=== PATIENT | male | born 1970 | race Caucasian/White ===

== ENCOUNTER 2023-03-07 10:30 | Outpatient (CLI) | payer OTHER, SELFPAY ==
[2023-03-07] MEDS: SODIUM CHLORIDE 0.9% IV 250 ML 10 ML IVPB (11:00)
[2023-03-07] MEDS: diphenhydrAMINE HCl INJ 50 MG/ML VIAL 25 MG IV PUSH (11:00)
[2023-03-07 11:04] VITALS: BMI 23.2
[2023-03-07] MEDS: FAMOTIDINE 20 MG/ISO 50 ML 20 MG/50 ML BAG 150 MG IVPB (11:06)
[2023-03-07 11:19] VITALS: BP 147/68; PULSE 88; RESP 4; TEMP 36.6; O2SAT 98
[2023-03-07] MEDS: SODIUM CHLORIDE 0.9% IVPB (11:50)
[2023-03-07] MEDS: PACLITAXEL IVPB (11:50)
[2023-03-07] MEDS: HEPARIN SODIUM LOCK FLUSH 500 UNITS/5 ML SYRINGE IV PUSH (15:04)
[2023-03-07 15:11] VITALS: BP 132/70; PULSE 88; RESP 14; TEMP 36.5; O2SAT 97
--- NOTE | 2023-03-07 15:12 | PC.NURSE ---
Patient here for Cycle 1 of Carbo/Taxol chemotherapy. Labs were done up at [facility] 03/03/[address] Aguero. Education given verbally and written to patient and . Informed them education will be ongoing each time here. IV premeds and chemo administered see MAR. Tolerated well. Will be back 02/11/2023 at 0900 for cycle 2. Safe exit of hospital with .
== END 2023-03-07 10:31 | disposition home or self-care (01) ==
LOC: CHSTREATRM 10:41
PROVIDERS: PCP Family Medicine; Visit Provider Internal Medicine Hematology
DX: Z51.11 Encounter for antineoplastic chemotherapy (principal); C34.11 Malignant neoplasm of upper lobe, right bronchus or lung
CPT/HCPCS: 96367; 96375; 96413; 96415; 96417; J1100; J1200; J2405; J7050; J9045; J9267

== ENCOUNTER 2023-03-14 09:14 | Outpatient (CLI) | payer OTHER, SELFPAY ==
[2023-03-14 09:40] VITALS: BP 125/81; PULSE 68; RESP 14; TEMP 36.5; O2SAT 98; BMI 23.6
[2023-03-14 09:50] LABS: Basophils Absolute Auto 0.02 K/mm3 (0.00-0.10); Basophils Percent Auto 0.2 % (0.0-1.0); Eosinophils Absolute Auto 0.02 K/mm3 (0.02-0.50); Eosinophils Percent Auto 0.2 % (1.0-6.0); Hematocrit 44.1 % (40.0-54.0); Immature Granulocyte Absolute 0.15 K/mm3 (0.00-0.00); Immature Granulocyte Percent A 1.3 % (0.0-0.0); Lymphocytes Absolute Auto 0.78 K/mm3 (1.10-4.50); Lymphocytes Percent Auto 6.5 % (18.0-42.0); Mean Corpuscular Hemoglobin 31.8 pg (27.0-31.0); Mean Corpuscular Volume 93.6 fL (78.0-102.0); Mean Platelet Volume 10.3 fl (8.7-11.0); Monocytes Absolute Auto 0.31 K/mm3 (0.10-0.90); Monocytes Percent Auto 2.6 % (2.0-11.0); Neutrophils Absolute Auto 10.7 K/mm3 (1.7-7.2); Neutrophils Percent Auto 89.2 % (50.0-70.0); Platelet Count Result 373 K/mm3 (150-420); Red Blood Count 4.71 M/mm3 (4.70-6.10); Red Cell Distribution Width 12.3 % (11.6-14.4)
[2023-03-14] MEDS: SODIUM CHLORIDE 0.9% IV 250 ML 10 ML IVPB (10:00)
[2023-03-14] MEDS: diphenhydrAMINE HCl INJ 50 MG/ML VIAL 25 MG IV PUSH (10:12)
[2023-03-14] MEDS: FAMOTIDINE 20 MG/ISO 50 ML 20 MG/50 ML BAG 100 MG IVPB (10:15)
[2023-03-14 10:18] LABS: Alanine Aminotransferase 49 U/L (16-63); Albumin Level 4.3 g/dL (3.4-5.0); Alkaline Phosphatase 66 U/L (46-116); Anion Gap 8 mmol/L (8-16); Aspartate Amino Transferase 23 U/L (15-37); Bilirubin,Total 0.6 mg/dL (0.00-1.00); Blood Urea Nitrogen 14 mg/dL (7-18); Calcium 9.1 mg/dL (8.5-10.1); Carbon Dioxide 27 mmol/L (21-32); Chloride 100 mmol/L (98-108); Estimated CRCL calculation 83 ml/min; Estimated Glomerular Filt Rate > 60; Glucose 129 mg/dL (70-99); Osmolality Calculated 282 mOsm/kg (285-295); Potassium 4.9 mmol/L (3.5-5.1); Sodium 135 mmol/L (136-145)
[2023-03-14 13:00] VITALS: BP 122/67; PULSE 68; RESP 14; TEMP 36.6; O2SAT 98
[2023-03-14] MEDS: HEPARIN SODIUM LOCK FLUSH 500 UNITS/5 ML SYRINGE IV PUSH (13:12)
--- NOTE | 2023-03-14 13:25 | PC.NURSE ---
Patient here for Cycle 2 chemo regimen. Talk with patients about side effects/chemo/cancer-Education etc. All concerns answered. Labs drawn reviewed and ok'd for chemo today. IV Chemo regimen administered. SEE MAR. Tolerated well. Will return 03/21/23 after radiation. Safe exit of hospital with /ambulatory.
== END 2023-03-14 09:15 | disposition home or self-care (01) ==
LOC: CHSTREATRM 09:17
PROVIDERS: PCP Family Medicine; Visit Provider Internal Medicine Hematology
DX: Z51.11 Encounter for antineoplastic chemotherapy (principal); C34.11 Malignant neoplasm of upper lobe, right bronchus or lung
CPT/HCPCS: 36415; 80053; 85025; 96367; 96375; 96413; 96417; J1100; J1200; J2405; J7050; J9045; J9267

== ENCOUNTER 2023-03-21 10:35 | Outpatient (CLI) | payer OTHER, SELFPAY ==
[2023-03-21 10:45] VITALS: BP 150/90; PULSE 78; RESP 14; TEMP 36.7; O2SAT 97; BMI 23.2
[2023-03-21] MEDS: SODIUM CHLORIDE 0.9% IV 250 ML 10 ML IVPB (10:45)
[2023-03-21] MEDS: diphenhydrAMINE HCl INJ 50 MG/ML VIAL 25 MG IV PUSH (10:50)
[2023-03-21] MEDS: FAMOTIDINE 20 MG/ISO 50 ML 20 MG/50 ML BAG 150 MG IVPB (10:55)
[2023-03-21] MEDS: ONDANSETRON INJ 16 MG, dexAMETHasone SOD 4 MG/ML INJ 12 MG in SODIUM CHLORIDE 0.9% IV 1... 300 MG IVPB (11:15)
[2023-03-21] MEDS: SODIUM CHLORIDE 0.9% IVPB (11:48)
[2023-03-21] MEDS: PACLITAXEL IVPB (11:48)
[2023-03-21 13:34] VITALS: BP 139/70; PULSE 68; RESP 14; TEMP 36.4; O2SAT 98
[2023-03-21] MEDS: HEPARIN SODIUM LOCK FLUSH 500 UNITS/5 ML SYRINGE IV PUSH (13:34)
--- NOTE | 2023-03-21 13:38 | PC.NURSE ---
Patient coming from [facility] in [place]. Here to get cycle 3 of 6 chemo-taxol/carbo regimen. Labs were done this a.m. at [facility] -faxed here and reviewed and ok'd. No concerns today. Reports feels a little tired, but no n/v/pain. Slight rash spots noted on face. Patient reports doesn't itch or bother him or has increased. Chemo regiment administered. SEE MAR. Tolerated well. Will return 03/28/23 after radiation for cycle 4.
== END 2023-03-21 13:42 | disposition home or self-care (01) ==
LOC: CHSTREATRM 10:37
PROVIDERS: PCP Family Medicine; Visit Provider Internal Medicine Hematology
DX: Z51.11 Encounter for antineoplastic chemotherapy (principal); C34.11 Malignant neoplasm of upper lobe, right bronchus or lung
CPT/HCPCS: 96367; 96375; 96413; 96417; J1100; J1200; J2405; J7050; J9045; J9267

== ENCOUNTER 2023-03-28 10:21 | Outpatient (CLI) | payer OTHER, SELFPAY ==
[2023-03-28] MEDS: SODIUM CHLORIDE 0.9% IV 250 ML 10 ML IVPB (10:30)
[2023-03-28 10:37] VITALS: BMI 23.1
[2023-03-28] MEDS: diphenhydrAMINE HCl INJ 50 MG/ML VIAL 25 MG IV PUSH (10:40)
[2023-03-28 10:44] VITALS: BP 121/73; PULSE 68; RESP 14; TEMP 36.2; O2SAT 98
[2023-03-28] MEDS: FAMOTIDINE 20 MG/ISO 50 ML 20 MG/50 ML BAG 150 MG IVPB (10:45)
[2023-03-28] MEDS: ONDANSETRON INJ 16 MG, dexAMETHasone SOD 4 MG/ML INJ 12 MG in SODIUM CHLORIDE 0.9% IV 1... 300 MG IVPB (11:00)
[2023-03-28] MEDS: SODIUM CHLORIDE 0.9% IVPB (11:45)
[2023-03-28] MEDS: PACLITAXEL IVPB (11:45)
[2023-03-28] MEDS: HEPARIN SODIUM LOCK FLUSH 500 UNITS/5 ML SYRINGE IV PUSH (13:25)
[2023-03-28 13:51] VITALS: BP 121/69; PULSE 72; RESP 14; TEMP 36.4; O2SAT 97
--- NOTE | 2023-03-28 13:51 | PC.NURSE ---
Patient here for cycle 4 chemo regimen. Labs reviewed and ok'd. No concerns voiced. On going education of chemo/cancer continues with each session. Chemo regimen administered. SEE MAR. Tolerated well. Will return 04/06/23 after radiation around 1000. Safe exit of hospital with /ambulatory.
== END 2023-03-28 13:57 | disposition home or self-care (01) ==
PROVIDERS: PCP Family Medicine; Visit Provider Internal Medicine Hematology
DX: Z51.11 Encounter for antineoplastic chemotherapy (principal); C34.11 Malignant neoplasm of upper lobe, right bronchus or lung
CPT/HCPCS: 96367; 96375; 96413; 96417; J1100; J1200; J2405; J7050; J9045; J9267

== ENCOUNTER 2023-04-04 11:02 | Outpatient (CLI) | payer OTHER, SELFPAY ==
[2023-04-04 11:05] VITALS: BMI 23.2
[2023-04-04] MEDS: diphenhydrAMINE HCl INJ 50 MG/ML VIAL 25 MG IV PUSH (11:05)
[2023-04-04] MEDS: SODIUM CHLORIDE 0.9% IV 250 ML 10 ML IVPB (11:10)
[2023-04-04] MEDS: FAMOTIDINE 20 MG/ISO 50 ML 20 MG/50 ML BAG 150 MG IVPB (11:10)
[2023-04-04 11:18] VITALS: BP 123/74; PULSE 76; RESP 14; TEMP 36.6; O2SAT 97
[2023-04-04] MEDS: ONDANSETRON INJ 16 MG, dexAMETHasone SOD 4 MG/ML INJ 12 MG in SODIUM CHLORIDE 0.9% IV 1... 300 MG IVPB (11:30)
[2023-04-04] MEDS: SODIUM CHLORIDE 0.9% IVPB (11:55)
[2023-04-04] MEDS: PACLITAXEL IVPB (11:55)
[2023-04-04] MEDS: HEPARIN SODIUM LOCK FLUSH 500 UNITS/5 ML SYRINGE IV PUSH (13:35)
[2023-04-04 13:49] VITALS: BP 119/73; PULSE 72; RESP 14; TEMP 36.4; O2SAT 97
--- NOTE | 2023-04-04 13:50 | PC.NURSE ---
Patient here for Chemo cycle 5. Lab results reviewed today and ok'd. Just came from radiation tx. On going education of cancer /chemo continue. Chemo regimen administered. SEE MAR. Tolerated well. Will return 04/11/23 around 1030 after radiation tx. Safe exit of hospital with /ambulatory.
== END 2023-04-04 13:53 | disposition home or self-care (01) ==
LOC: CHSTREATRM 11:03
PROVIDERS: PCP Family Medicine; Visit Provider Internal Medicine Hematology
DX: Z51.11 Encounter for antineoplastic chemotherapy (principal); C34.11 Malignant neoplasm of upper lobe, right bronchus or lung
CPT/HCPCS: 96367; 96375; 96413; 96417; J1100; J1200; J2405; J7050; J9045; J9267

== ENCOUNTER 2023-04-11 10:56 | Outpatient (CLI) | payer OTHER, SELFPAY ==
[2023-04-11 11:00] VITALS: BP 135/72; PULSE 80; RESP 14; TEMP 36.6; O2SAT 97
[2023-04-11] MEDS: SODIUM CHLORIDE 0.9% IV 250 ML 10 ML IVPB (11:05)
[2023-04-11] MEDS: diphenhydrAMINE HCl INJ 50 MG/ML VIAL 25 MG IV PUSH (11:10)
[2023-04-11] MEDS: FAMOTIDINE 20 MG/ISO 50 ML 20 MG/50 ML BAG 150 MG IVPB (11:12)
[2023-04-11 11:15] VITALS: BMI 24.5
[2023-04-11] MEDS: ONDANSETRON INJ 16 MG, dexAMETHasone SOD 4 MG/ML INJ 12 MG in SODIUM CHLORIDE 0.9% IV 1... 300 MG IVPB (11:32)
[2023-04-11] MEDS: PACLITAXEL IVPB (11:51)
[2023-04-11] MEDS: SODIUM CHLORIDE 0.9% IVPB (11:51)
[2023-04-11] MEDS: HEPARIN SODIUM LOCK FLUSH 500 UNITS/5 ML SYRINGE IV PUSH (13:36)
[2023-04-11 13:37] VITALS: BP 130/72; PULSE 78; RESP 14; TEMP 36.6; O2SAT 97
--- NOTE | 2023-04-11 13:42 | PC.NURSE ---
Patient here for cycle 6 of 6 chemo regimen. No concerns voiced. On going education given. Labs reviewed from 04/10/23 and ok'd to proceed. Chemo regimen administered. SEE MAR. Tolerated well. Will have scan on 05/08/23 and follow up with Dr. Aguero.
--- NOTE | 2023-04-11 13:44 | PC.NURSE ---
Safe exit of hospital with and ambulatory.
== END 2023-04-11 13:45 | disposition home or self-care (01) ==
LOC: CHSTREATRM 10:58
PROVIDERS: PCP Family Medicine; Visit Provider Internal Medicine Hematology
DX: Z51.11 Encounter for antineoplastic chemotherapy (principal); C34.11 Malignant neoplasm of upper lobe, right bronchus or lung
CPT/HCPCS: 96367; 96375; 96413; 96417; J1100; J1200; J2405; J7050; J9045; J9267

== ENCOUNTER 2023-05-08 08:18 | Outpatient (CLI) | payer OTHER, SELFPAY ==
--- NOTE | ~2023-05-08 | CT_ITS ---
Clinical Indication: Lung cancer CT Scan of the Chest, Abdomen, and Pelvis with Contrast: Technique: Contiguous sections were acquired throughout the chest, abdomen, and pelvis after intraven ous administration of 100 cc of Omnipaque 350. Dose reduction technique was used on this scan by uti alexeying automated exposure control and iterative reconstruction technique. The dose-length product (DL P) was 416.35 mGy-cm. Findings: There is no evidence of any significant mediastinal, hilar or axillary lymphadenopathy. The mediastin al soft tissues appear normal. There is no evidence of pleural or pericardial effusion. Moderate emphysema present. Probable right upper lobectomy change. Calcified left upper lobe granulom a present. Possible focal post radiation change at the right hilar region. The liver, spleen, pancreas, gallbladder, adrenals and kidneys are within normal limits. No evidence of aortic aneurysm. No lymphadenopathy. No bowel obstruction or bowel wall thickening. There is no evidence to suggest acute appendicitis. Urinary bladder is unremarkable. No pelvic mass seen. No ascites. There is mild chronic loss of heigh t of T5, T6, T7, T8, and T9. Impression: No definite evidence for active malignancy or metastatic disease. Probable right upper lobectomy change and possible focal post radiation change at the right hilar reg ion. Moderate emphysema. Multiple mild chronic compression deformities in the thoracic spine, as above. Reviewed, dictated and finalized at [facility]. Impression: No definite evidence for active malignancy or metastatic disease. Probable right upper lobectomy change and possible focal post radiation change at the right hilar region. Moderate emphysema. Multiple mild chronic compression deformities in the thoracic spine, as above.
== END 2023-05-08 08:19 | disposition home or self-care (01) ==
LOC: CHSIMG 08:21
PROVIDERS: PCP Family Medicine; Visit Provider Internal Medicine Hematology
DX: C34.90 Malignant neoplasm of unspecified part of unspecified bronchus or lung (principal); J43.9 Emphysema, unspecified; M43.8X4 Other specified deforming dorsopathies, thoracic region
CPT/HCPCS: 71260; 74177; Q9967

== ENCOUNTER 2023-05-10 09:45 | Outpatient (CLI) | payer OTHER, SELFPAY ==
[2023-05-10 10:02] LABS: Basophils Absolute Auto 0.04 K/mm3 (0.00-0.10); Basophils Percent Auto 0.7 % (0.0-1.0); Eosinophils Absolute Auto 0.22 K/mm3 (0.02-0.50); Hematocrit 40.1 % (40.0-54.0); Hemoglobin 13.6 g/dL (14.0-18.0); Immature Granulocyte Absolute 0.02 K/mm3 (0.00-0.00); Immature Granulocyte Percent A 0.4 % (0.0-0.0); Lymphocytes Absolute Auto 1.29 K/mm3 (1.10-4.50); Lymphocytes Percent Auto 23.2 % (18.0-42.0); Mean Corpuscular HGB Conc 33.9 g/dL (32-36); Mean Corpuscular Hemoglobin 33.8 pg (27.0-31.0); Mean Corpuscular Volume 99.8 fL (78.0-102.0); Mean Platelet Volume 9.3 fl (8.7-11.0); Monocytes Absolute Auto 0.68 K/mm3 (0.10-0.90); Monocytes Percent Auto 12.3 % (2.0-11.0); Neutrophils Percent Auto 59.4 % (50.0-70.0); Platelet Count Result 422 K/mm3 (150-420); Red Blood Count 4.02 M/mm3 (4.70-6.10); Red Cell Distribution Width 15.4 % (11.6-14.4); White Blood Count 5.6 K/mm3 (4.8-10.8)
[2023-05-10 10:26] LABS: Alanine Aminotransferase 23 U/L (16-63); Alkaline Phosphatase 65 U/L (46-116); Anion Gap 14 mmol/L (4-12); Aspartate Amino Transferase 15 U/L (15-37); Bilirubin,Total 0.5 mg/dL (0.00-1.00); Blood Urea Nitrogen 8 mg/dL (7-18); Calcium 9.2 mg/dL (8.5-10.1); Carbon Dioxide 25 mmol/L (21-32); Chloride 103 mmol/L (98-108); Estimated Glomerular Filt Rate > 60; Glucose 99 mg/dL (70-99); Osmolality Calculated 292 mOsm/kg (285-295); Potassium 4.1 mmol/L (3.5-5.1); Sodium 142 mmol/L (136-145); Total Protein 7.2 g/dL (6.4-8.2)
== END 2023-05-10 09:46 | disposition home or self-care (01) ==
LOC: CHSLAB 09:47
PROVIDERS: PCP Family Medicine; Visit Provider Internal Medicine Hematology
DX: C34.90 Malignant neoplasm of unspecified part of unspecified bronchus or lung (principal)
CPT/HCPCS: 36415; 80053; 85025

== ENCOUNTER 2023-05-11 09:27 | Outpatient (CLI) | payer OTHER, SELFPAY ==
[2023-05-11] MEDS: SODIUM CHLORIDE 0.9% IV 250 ML 10 ML IVPB (09:40)
[2023-05-11] MEDS: diphenhydrAMINE HCl INJ 50 MG/ML VIAL 25 MG IV PUSH (09:45)
[2023-05-11 09:48] VITALS: BP 135/69; PULSE 72; RESP 16; TEMP 36.5; O2SAT 97; BMI 24.0
[2023-05-11] MEDS: FAMOTIDINE 20 MG/2 ML VIAL IV PUSH (09:48)
[2023-05-11] MEDS: ONDANSETRON INJ 16 MG, dexAMETHasone SOD 4 MG/ML INJ 12 MG in SODIUM CHLORIDE 0.9% IV 1... 300 MG IVPB (09:50)
[2023-05-11] MEDS: FOSAPREPITANT DIMEGLUMINE 150 MG in SODIUM CHLORIDE 0.9% IV 250 ML 750 MG IVPB (10:11)
[2023-05-11] MEDS: HEPARIN SODIUM LOCK FLUSH 500 UNITS/5 ML SYRINGE IV PUSH (14:44)
[2023-05-11 14:45] VITALS: BP 128/69; PULSE 78; RESP 16; TEMP 36.6; O2SAT 98
--- NOTE | 2023-05-11 14:46 | PC.NURSE ---
Patient here for cycle 1 of 2 Taxol/Carbo larger doses then past six treatments. Education given. No concerns voiced. Chemo regimen administered. SEE MAR. Tolerated well. Will return 05/31/23 at 0900 for cycle 2. Safe exit of hospital with ambulatory.
== END 2023-05-11 14:55 | disposition home or self-care (01) ==
PROVIDERS: PCP Family Medicine; Visit Provider Internal Medicine Hematology
DX: Z51.11 Encounter for antineoplastic chemotherapy (principal); C34.11 Malignant neoplasm of upper lobe, right bronchus or lung
CPT/HCPCS: 96367; 96375; 96413; 96415; 96417; J1100; J1200; J1453; J2405; J7040; J7050; J9045; J9267

== ENCOUNTER 2023-05-22 10:08 | Outpatient (CLI) | payer OTHER, SELFPAY ==
[2023-05-22 10:38] LABS: Hemoglobin 10.9 g/dL (14.0-18.0); Mean Corpuscular HGB Conc 34.1 g/dL (32-36); Mean Corpuscular Hemoglobin 33.5 pg (27.0-31.0); Mean Corpuscular Volume 98.5 fL (78.0-102.0); Mean Platelet Volume 9.5 fl (8.7-11.0); Platelet Count Result 298 K/mm3 (150-420); Red Blood Count 3.25 M/mm3 (4.70-6.10); Red Cell Distribution Width 14.8 % (11.6-14.4); White Blood Count 2.6 K/mm3 (4.8-10.8)
[2023-05-22 10:53] LABS: Band Neutrophils Percent 0 % (0-6); Eosinophils Absolute Manual 0.07 K/mm3 (0.02-0.50); Eosinophils Percent Manual 3 % (1-6); Lymphocytes Absolute Manual 0.98 K/mm3 (1.1-4.5); Lymphocytes Percent Manual 38 % (18-44); Monocytes Absolute Manual 0.49 K/mm3 (0.1-0.90); Monocytes Percent Manual 19 % (3-9); Neutrophils Absolute Manual 1.04 K/mm3 (1.3-6.7); Neutrophils Percent Manual 40 % (46-73); Platelet Estimate Adequate (Adequate); Total Cells Counted 100
== END 2023-05-22 10:09 | disposition home or self-care (01) ==
LOC: CHSLAB 10:10
PROVIDERS: PCP Family Medicine; Visit Provider Internal Medicine Hematology
DX: D70.1 Agranulocytosis secondary to cancer chemotherapy (principal)
CPT/HCPCS: 36415; 85025

== ENCOUNTER 2023-05-23 10:10 | Outpatient (CLI) | payer OTHER, SELFPAY ==
[2023-05-23 10:26] VITALS: BP 136/70; PULSE 80; RESP 16; TEMP 36.6; O2SAT 97; BMI 24.0
[2023-05-23] MEDS: FILGRASTIM-SNDZ 480 MCG/0.8 ML SYRINGE SUB-Q (10:31)
--- NOTE | 2023-05-23 10:32 | PC.NURSE ---
Patient here for #1 of 3 Zarxio injection. Education given. No concerns voiced. Injection administered. SEE MAR. Tolerated well. Safe exit of hospital per self/ambulatory. Will return for #2 of 3 on 05/24/23 at 1000.
== END 2023-05-23 10:11 | disposition home or self-care (01) ==
PROVIDERS: PCP Family Medicine; Visit Provider Internal Medicine Hematology
DX: D70.1 Agranulocytosis secondary to cancer chemotherapy (principal); C34.11 Malignant neoplasm of upper lobe, right bronchus or lung
CPT/HCPCS: 96372; Q5101

== ENCOUNTER 2023-05-31 10:40 | Outpatient (CLI) | payer OTHER, SELFPAY ==
[2023-05-31 11:03] LABS: Basophils Absolute Auto 0.04 K/mm3 (0.00-0.10); Basophils Percent Auto 0.4 % (0.0-1.0); Eosinophils Absolute Auto 0.13 K/mm3 (0.02-0.50); Eosinophils Percent Auto 1.4 % (1.0-6.0); Hematocrit 37.9 % (40.0-54.0); Hemoglobin 12.8 g/dL (14.0-18.0); Immature Granulocyte Absolute 0.06 K/mm3 (0.00-0.00); Immature Granulocyte Percent A 0.6 % (0.0-0.0); Lymphocytes Absolute Auto 1.36 K/mm3 (1.10-4.50); Lymphocytes Percent Auto 14.5 % (18.0-42.0); Mean Corpuscular HGB Conc 33.8 g/dL (32-36); Mean Corpuscular Hemoglobin 33.3 pg (27.0-31.0); Mean Corpuscular Volume 98.7 fL (78.0-102.0); Mean Platelet Volume 9.5 fl (8.7-11.0); Monocytes Absolute Auto 1.03 K/mm3 (0.10-0.90); Neutrophils Absolute Auto 6.73 K/mm3 (1.70-7.20); Neutrophils Percent Auto 72.1 % (50.0-70.0); Platelet Count Result 272 K/mm3 (150-420); Red Blood Count 3.84 M/mm3 (4.70-6.10); Red Cell Distribution Width 15.3 % (11.6-14.4); White Blood Count 9.4 K/mm3 (4.8-10.8)
[2023-05-31 11:04] VITALS: BP 135/81; PULSE 92; RESP 16; TEMP 36.6; O2SAT 97; BMI 24.1
[2023-05-31] MEDS: PEMBROLIZUMAB 200 MG in SODIUM CHLORIDE 0.9% IV 100 ML IVPB (11:14)
[2023-05-31 11:18] LABS: Alanine Aminotransferase 36 U/L (16-63); Albumin Level 3.9 g/dL (3.4-5.0); Alkaline Phosphatase 62 U/L (46-116); Anion Gap 7 mmol/L (4-12); Aspartate Amino Transferase 21 U/L (15-37); Bilirubin,Total 0.5 mg/dL (0.00-1.00); Blood Urea Nitrogen 10 mg/dL (7-18); Calcium 8.8 mg/dL (8.5-10.1); Carbon Dioxide 28 mmol/L (21-32); Chloride 102 mmol/L (98-108); Estimated CRCL calculation 90 ml/min; Estimated Glomerular Filt Rate > 60; Glucose 100 mg/dL (70-99); Osmolality Calculated 283 mOsm/kg (285-295); Potassium 4.5 mmol/L (3.5-5.1); Sodium 137 mmol/L (136-145); Total Protein 7.2 g/dL (6.4-8.2)
[2023-05-31] MEDS: HEPARIN SODIUM LOCK FLUSH 500 UNITS/5 ML SYRINGE IV PUSH (11:36)
[2023-05-31 11:38] LABS: Thyroid Stimulating Hormone 1.33 uIU/mL (0.36-3.74)
[2023-05-31 11:45] VITALS: BP 134/74; PULSE 88; RESP 14; TEMP 36.3; O2SAT 96
== END 2023-05-31 12:00 | disposition home or self-care (01) ==
PROVIDERS: PCP Family Medicine; Visit Provider Internal Medicine Hematology
DX: Z51.11 Encounter for antineoplastic chemotherapy (principal); C34.11 Malignant neoplasm of upper lobe, right bronchus or lung
CPT/HCPCS: 36415; 80053; 82533; 84443; 85025; 96413; J9271

== ENCOUNTER 2023-06-22 10:30 | Outpatient (CLI) | payer OTHER, SELFPAY ==
[2023-06-22 10:35] VITALS: BP 114/63; PULSE 68; RESP 14; TEMP 36.4; O2SAT 96; BMI 23.5
[2023-06-22 10:58] LABS: Basophils Absolute Auto 0.04 K/mm3 (0.00-0.10); Basophils Percent Auto 0.6 % (0.0-1.0); Eosinophils Absolute Auto 0.26 K/mm3 (0.02-0.50); Eosinophils Percent Auto 3.7 % (1.0-6.0); Hematocrit 39.5 % (40.0-54.0); Hemoglobin 13.2 g/dL (14.0-18.0); Immature Granulocyte Absolute 0.02 K/mm3 (0.00-0.00); Immature Granulocyte Percent A 0.3 % (0.0-0.0); Lymphocytes Absolute Auto 1.09 K/mm3 (1.10-4.50); Lymphocytes Percent Auto 15.7 % (18.0-42.0); Mean Corpuscular HGB Conc 33.4 g/dL (32-36); Mean Corpuscular Hemoglobin 33.5 pg (27.0-31.0); Mean Corpuscular Volume 100.3 fL (78.0-102.0); Mean Platelet Volume 9.8 fl (8.7-11.0); Monocytes Absolute Auto 0.71 K/mm3 (0.10-0.90); Monocytes Percent Auto 10.2 % (2.0-11.0); Neutrophils Absolute Auto 4.82 K/mm3 (1.70-7.20); Neutrophils Percent Auto 69.5 % (50.0-70.0); Platelet Count Result 305 K/mm3 (150-420); Red Blood Count 3.94 M/mm3 (4.70-6.10); Red Cell Distribution Width 13.4 % (11.6-14.4); White Blood Count 6.9 K/mm3 (4.8-10.8)
[2023-06-22 11:19] LABS: Alanine Aminotransferase 25 U/L (16-63); Albumin Level 3.9 g/dL (3.4-5.0); Alkaline Phosphatase 52 U/L (46-116); Anion Gap 10 mmol/L (4-12); Aspartate Amino Transferase 22 U/L (15-37); Bilirubin,Total 0.4 mg/dL (0.00-1.00); Blood Urea Nitrogen 11 mg/dL (7-18); Calcium 8.8 mg/dL (8.5-10.1); Carbon Dioxide 27 mmol/L (21-32); Chloride 101 mmol/L (98-108); Estimated CRCL calculation 84 ml/min; Estimated Glomerular Filt Rate > 60; Free T4 Free Thyroxine 0.97 ng/dL (0.76-1.46); Glucose 96 mg/dL (70-99); Osmolality Calculated 285 mOsm/kg (285-295); Potassium 4.1 mmol/L (3.5-5.1); Sodium 138 mmol/L (136-145); Thyroid Stimulating Hormone 2.26 uIU/mL (0.36-3.74)
[2023-06-22] MEDS: PEMBROLIZUMAB 200 MG in SODIUM CHLORIDE 0.9% IV 100 ML IVPB (11:45)
[2023-06-22] MEDS: HEPARIN SODIUM LOCK FLUSH 500 UNITS/5 ML SYRINGE IV PUSH (12:28)
[2023-06-22 12:29] VITALS: BP 111/69; PULSE 68; RESP 14; TEMP 36.5; O2SAT 95
--- NOTE | 2023-06-22 12:31 | PC.NURSE ---
Patient here for Keytruda infusion. Education given. Labs drawn/reviewed/ok'd. No concerns voiced. Infusion administered. SEE MAR. Tolerated well. Safe exit of hospital with son and ambulatory.
== END 2023-06-22 12:32 | disposition home or self-care (01) ==
PROVIDERS: PCP Family Medicine; Visit Provider Internal Medicine Hematology
DX: C34.90 Malignant neoplasm of unspecified part of unspecified bronchus or lung (principal)
CPT/HCPCS: 36591; 80053; 82533; 84439; 84443; 85025; 96413; J9271

== ENCOUNTER 2023-07-13 10:07 | Outpatient (CLI) | payer OTHER, SELFPAY ==
[2023-07-13 10:29] LABS: Basophils Absolute Auto 0.05 K/mm3 (0.00-0.10); Basophils Percent Auto 0.8 % (0.0-1.0); Eosinophils Absolute Auto 0.21 K/mm3 (0.02-0.50); Eosinophils Percent Auto 3.4 % (1.0-6.0); Hematocrit 40.5 % (40.0-54.0); Hemoglobin 13.8 g/dL (14.0-18.0); Immature Granulocyte Absolute 0.02 K/mm3 (0.00-0.00); Immature Granulocyte Percent A 0.3 % (0.0-0.0); Lymphocytes Absolute Auto 1.68 K/mm3 (1.10-4.50); Lymphocytes Percent Auto 27.4 % (18.0-42.0); Mean Corpuscular HGB Conc 34.1 g/dL (32-36); Mean Corpuscular Hemoglobin 33.7 pg (27.0-31.0); Mean Corpuscular Volume 98.8 fL (78.0-102.0); Mean Platelet Volume 9.7 fl (8.7-11.0); Monocytes Absolute Auto 0.63 K/mm3 (0.10-0.90); Monocytes Percent Auto 10.3 % (2.0-11.0); Neutrophils Absolute Auto 3.55 K/mm3 (1.70-7.20); Neutrophils Percent Auto 57.8 % (50.0-70.0); Platelet Count Result 315 K/mm3 (150-420); Red Cell Distribution Width 12.3 % (11.6-14.4); White Blood Count 6.1 K/mm3 (4.8-10.8)
[2023-07-13 10:30] VITALS: BP 135/81; PULSE 56; RESP 14; TEMP 36.6; O2SAT 98; BMI 24.1
[2023-07-13 10:42] LABS: Alanine Aminotransferase 20 U/L (16-63); Albumin Level 3.8 g/dL (3.4-5.0); Alkaline Phosphatase 51 U/L (46-116); Anion Gap 9 mmol/L (4-12); Aspartate Amino Transferase 17 U/L (15-37); Bilirubin,Total 0.4 mg/dL (0.00-1.00); Blood Urea Nitrogen 10 mg/dL (7-18); Calcium 8.8 mg/dL (8.5-10.1); Carbon Dioxide 27 mmol/L (21-32); Chloride 102 mmol/L (98-108); Estimated Glomerular Filt Rate > 60; Glucose 100 mg/dL (70-99); Osmolality Calculated 285 mOsm/kg (285-295); Potassium 4.4 mmol/L (3.5-5.1); Sodium 138 mmol/L (136-145); Total Protein 7.2 g/dL (6.4-8.2)
[2023-07-13] MEDS: PEMBROLIZUMAB 200 MG in SODIUM CHLORIDE 0.9% IV 100 ML IVPB (11:00)
[2023-07-13] MEDS: HEPARIN SODIUM LOCK FLUSH 500 UNITS/5 ML SYRINGE IV PUSH (11:39)
[2023-07-13 11:44] VITALS: BP 120/73; PULSE 64; RESP 14; O2SAT 98
--- NOTE | 2023-07-13 11:46 | PC.NURSE ---
Patient here for #3 Keytruda IV infusion. Ongoing education continues on immunotherapy. All concerns voiced answered. Labs drawn/viewed/ok'd. IV Keytruda infusion administered. see MAR. Tolerated well. #4 treatment July at 1000. Safe exit of hospital per /ambulatory.
[2023-07-14 11:58] LABS: Cortisol Random 5.5 mcg/dL
== END 2023-07-13 10:08 | disposition home or self-care (01) ==
PROVIDERS: PCP Internal Medicine Hematology; Visit Provider Internal Medicine Hematology
DX: Z51.11 Encounter for antineoplastic chemotherapy (principal); C34.11 Malignant neoplasm of upper lobe, right bronchus or lung
CPT/HCPCS: 36591; 80053; 82533; 84443; 85025; 96413; J9271

== ENCOUNTER 2023-08-03 10:25 | Outpatient (CLI) | payer OTHER, SELFPAY ==
[2023-08-03 10:44] LABS: Basophils Absolute Auto 0.04 K/mm3 (0.00-0.10); Basophils Percent Auto 0.6 % (0.0-1.0); Eosinophils Absolute Auto 0.33 K/mm3 (0.02-0.50); Eosinophils Percent Auto 4.8 % (1.0-6.0); Hematocrit 39.3 % (40.0-54.0); Hemoglobin 13.6 g/dL (14.0-18.0); Immature Granulocyte Absolute 0.02 K/mm3 (0.00-0.00); Immature Granulocyte Percent A 0.3 % (0.0-0.0); Lymphocytes Absolute Auto 1.81 K/mm3 (1.10-4.50); Lymphocytes Percent Auto 26.6 % (18.0-42.0); Mean Corpuscular HGB Conc 34.6 g/dL (32-36); Mean Corpuscular Hemoglobin 33.3 pg (27.0-31.0); Mean Corpuscular Volume 96.3 fL (78.0-102.0); Mean Platelet Volume 9.6 fl (8.7-11.0); Monocytes Absolute Auto 0.63 K/mm3 (0.10-0.90); Monocytes Percent Auto 9.3 % (2.0-11.0); Neutrophils Absolute Auto 3.98 K/mm3 (1.70-7.20); Neutrophils Percent Auto 58.4 % (50.0-70.0); Platelet Count Result 304 K/mm3 (150-420); Red Blood Count 4.08 M/mm3 (4.70-6.10); Red Cell Distribution Width 12.3 % (11.6-14.4); White Blood Count 6.8 K/mm3 (4.8-10.8)
[2023-08-03 10:45] VITALS: BP 116/73; PULSE 68; RESP 14; TEMP 36.4; O2SAT 97; BMI 23.9
[2023-08-03 10:58] LABS: Alanine Aminotransferase 23 U/L (16-63); Albumin Level 3.6 g/dL (3.4-5.0); Alkaline Phosphatase 47 U/L (46-116); Anion Gap 7 mmol/L (4-12); Aspartate Amino Transferase 17 U/L (15-37); Bilirubin,Total 0.4 mg/dL (0.00-1.00); Blood Urea Nitrogen 11 mg/dL (7-18); Calcium 8.6 mg/dL (8.5-10.1); Carbon Dioxide 26 mmol/L (21-32); Chloride 103 mmol/L (98-108); Estimated Glomerular Filt Rate > 60; Glucose 114 mg/dL (70-99); Osmolality Calculated 282 mOsm/kg (285-295); Potassium 4.1 mmol/L (3.5-5.1); Sodium 136 mmol/L (136-145); Total Protein 6.8 g/dL (6.4-8.2)
[2023-08-03] MEDS: PEMBROLIZUMAB 200 MG in SODIUM CHLORIDE 0.9% IV 100 ML IVPB (11:20)
[2023-08-03] MEDS: HEPARIN SODIUM LOCK FLUSH 500 UNITS/5 ML SYRINGE IV PUSH (11:51)
[2023-08-03 12:15] VITALS: BP 121/70; PULSE 68; RESP 14; O2SAT 96
--- NOTE | 2023-08-03 12:32 | PC.NURSE ---
Patient here for every 3 21 day Keytruda infusion. Education given. No concerns voiced today. Labs drawn/reviewed/ok'd for treatment. TX administered. SEE MAR/patient care. Tolerated well. Safe discharge from hospital with .
== END 2023-08-03 10:26 | disposition home or self-care (01) ==
PROVIDERS: Visit Provider Internal Medicine Hematology
DX: Z51.11 Encounter for antineoplastic chemotherapy (principal); C34.11 Malignant neoplasm of upper lobe, right bronchus or lung
CPT/HCPCS: 36415; 36591; 80053; 85025; 96413; J9271

== ENCOUNTER 2023-08-24 08:29 | Outpatient (CLI) | payer OTHER, SELFPAY ==
[2023-08-24 08:50] VITALS: PULSE 72; RESP 14; TEMP 36.5; O2SAT 97; BMI 24.1
[2023-08-24 08:51] LABS: Basophils Absolute Auto 0.04 K/mm3 (0.00-0.10); Basophils Percent Auto 0.5 % (0.0-1.0); Eosinophils Absolute Auto 0.19 K/mm3 (0.02-0.50); Eosinophils Percent Auto 2.5 % (1.0-6.0); Immature Granulocyte Absolute 0.03 K/mm3 (0.00-0.00); Immature Granulocyte Percent A 0.4 % (0.0-0.0); Lymphocytes Absolute Auto 1.59 K/mm3 (1.10-4.50); Lymphocytes Percent Auto 20.6 % (18.0-42.0); Mean Corpuscular HGB Conc 34.9 g/dL (32-36); Mean Corpuscular Hemoglobin 32.8 pg (27.0-31.0); Mean Corpuscular Volume 93.9 fL (78.0-102.0); Mean Platelet Volume 9.7 fl (8.7-11.0); Monocytes Absolute Auto 0.64 K/mm3 (0.10-0.90); Monocytes Percent Auto 8.3 % (2.0-11.0); Neutrophils Absolute Auto 5.24 K/mm3 (1.70-7.20); Neutrophils Percent Auto 67.7 % (50.0-70.0); Platelet Count Result 299 K/mm3 (150-420); Red Blood Count 4.58 M/mm3 (4.70-6.10); Red Cell Distribution Width 12.2 % (11.6-14.4); White Blood Count 7.7 K/mm3 (4.8-10.8)
[2023-08-24 09:06] LABS: Alanine Aminotransferase 22 U/L (16-63); Albumin Level 4.3 g/dL (3.4-5.0); Alkaline Phosphatase 57 U/L (46-116); Anion Gap 11 mmol/L (4-12); Aspartate Amino Transferase 17 U/L (15-37); Bilirubin,Total 0.4 mg/dL (0.00-1.00); Blood Urea Nitrogen 12 mg/dL (7-18); Calcium 9.5 mg/dL (8.5-10.1); Carbon Dioxide 25 mmol/L (21-32); Chloride 101 mmol/L (98-108); Estimated CRCL calculation 81 ml/min; Estimated Glomerular Filt Rate > 60; Glucose 109 mg/dL (70-99); Osmolality Calculated 284 mOsm/kg (285-295); Potassium 4.2 mmol/L (3.5-5.1); Sodium 137 mmol/L (136-145); Total Protein 7.6 g/dL (6.4-8.2)
[2023-08-24] MEDS: PEMBROLIZUMAB 200 MG in SODIUM CHLORIDE 0.9% IV 100 ML IVPB (09:22)
[2023-08-24 09:28] LABS: Thyroid Stimulating Hormone 1.22 uIU/mL (0.36-3.74)
[2023-08-24 09:51] VITALS: BP 121/67; PULSE 78; RESP 14
[2023-08-24] MEDS: HEPARIN SODIUM LOCK FLUSH 500 UNITS/5 ML SYRINGE IV PUSH (09:52)
[2023-08-26 02:59] LABS: Cortisol Random 13.2 mcg/dL
== END 2023-08-24 08:30 | disposition home or self-care (01) ==
PROVIDERS: PCP Registered Nurse; Visit Provider Internal Medicine Hematology
DX: Z51.11 Encounter for antineoplastic chemotherapy (principal); C34.11 Malignant neoplasm of upper lobe, right bronchus or lung
CPT/HCPCS: 36415; 36591; 80053; 82533; 84443; 85025; 96413; J9271

== ENCOUNTER 2023-09-07 13:15 | Outpatient (CLI) | payer OTHER, SELFPAY ==
--- NOTE | ~2023-09-07 | CT_ITS ---
EXAMINATION: CT thoracic spine wo con DATE: 09/07/2023 13:34 INDICATION: Back pain. Lung cancer. TECHNIQUE: Computed tomography (CT) of the thoracic spine was performed without intravenous contrast. Automated exposure control and iterative reconstruction technique were employed. The dose-length pro duct was 513.99 mGy-cm. 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 Calcified pulmonary nodules and calcif ied left hilar lymph nodes are consistent with old granulomatous disease. There is moderate emphysema . There are changes of right upper lobectomy. There is mild chronic anterior wedging of T5-T12 verteb ral bodies. There is kyphosis of thoracic spine. There is 4 degrees levocurvature of thoracic spine. There is mildly decreased disc height at multiple levels. There is moderately decreased disc height a t T5-T6, T6-T7, T8-T9. There is multilevel mild to moderate facet joint osteoarthritis. At T2-T3, the re is severe right facet joint osteoarthritis. There is mild neural foraminal stenosis at a few level s on either side. There is mild central canal stenosis at T6-T7. IMPRESSION: 1. Moderate thoracic spondylosis. 2. Thoracic kyphosis. Reviewed, dictated and finalized at location A.
== END 2023-09-07 13:16 | disposition home or self-care (01) ==
PROVIDERS: Visit Provider Internal Medicine Hematology
DX: M54.9 Dorsalgia, unspecified (principal); M43.04 Spondylolysis, thoracic region; M40.294 Other kyphosis, thoracic region
CPT/HCPCS: 72128

== ENCOUNTER 2023-09-14 09:34 | Outpatient (CLI) | payer OTHER, SELFPAY ==
[2023-09-14 09:57] LABS: Basophils Absolute Auto 0.04 K/mm3 (0.00-0.10); Basophils Percent Auto 0.6 % (0.0-1.0); Eosinophils Absolute Auto 0.31 K/mm3 (0.02-0.50); Eosinophils Percent Auto 4.5 % (1.0-6.0); Hematocrit 41.8 % (40.0-54.0); Hemoglobin 14.5 g/dL (14.0-18.0); Immature Granulocyte Absolute 0.03 K/mm3 (0.00-0.00); Immature Granulocyte Percent A 0.4 % (0.0-0.0); Lymphocytes Absolute Auto 1.52 K/mm3 (1.10-4.50); Lymphocytes Percent Auto 22.1 % (18.0-42.0); Mean Corpuscular HGB Conc 34.7 g/dL (32-36); Mean Corpuscular Hemoglobin 32.2 pg (27.0-31.0); Mean Corpuscular Volume 92.7 fL (78.0-102.0); Mean Platelet Volume 9.8 fl (8.7-11.0); Monocytes Percent Auto 8.7 % (2.0-11.0); Neutrophils Absolute Auto 4.39 K/mm3 (1.70-7.20); Neutrophils Percent Auto 63.7 % (50.0-70.0); Platelet Count Result 305 K/mm3 (150-420); Red Blood Count 4.51 M/mm3 (4.70-6.10); Red Cell Distribution Width 12.4 % (11.6-14.4); White Blood Count 6.9 K/mm3 (4.8-10.8)
[2023-09-14 10:01] VITALS: BP 127/72; PULSE 88; RESP 14; TEMP 36.4; O2SAT 97; BMI 22.6
[2023-09-14 10:12] LABS: Alanine Aminotransferase 21 U/L (16-63); Albumin Level 3.9 g/dL (3.4-5.0); Alkaline Phosphatase 63 U/L (46-116); Anion Gap 10 mmol/L (4-12); Aspartate Amino Transferase 16 U/L (15-37); Bilirubin,Total 0.5 mg/dL (0.00-1.00); Blood Urea Nitrogen 9 mg/dL (7-18); Calcium 8.9 mg/dL (8.5-10.1); Carbon Dioxide 27 mmol/L (21-32); Chloride 102 mmol/L (98-108); Estimated CRCL calculation 88 ml/min; Estimated Glomerular Filt Rate > 60; Glucose 107 mg/dL (70-99); Osmolality Calculated 286 mOsm/kg (285-295); Potassium 4.3 mmol/L (3.5-5.1); Sodium 139 mmol/L (136-145); Total Protein 7.2 g/dL (6.4-8.2)
[2023-09-14] MEDS: PEMBROLIZUMAB 200 MG in SODIUM CHLORIDE 0.9% IV 100 ML IVPB (10:45)
[2023-09-14] MEDS: HEPARIN SODIUM LOCK FLUSH 500 UNITS/5 ML SYRINGE IV PUSH (11:24)
[2023-09-14 11:26] VITALS: BP 132/80; PULSE 72; RESP 16; O2SAT 96
--- NOTE | 2023-09-14 11:27 | PC.NURSE ---
Patient tolerated IV Keytruda infusion well. SEE MAR/patient care notes.
== END 2023-09-14 09:35 | disposition home or self-care (01) ==
PROVIDERS: PCP Internal Medicine Hematology; Visit Provider Internal Medicine Hematology
DX: Z51.11 Encounter for antineoplastic chemotherapy (principal); C34.11 Malignant neoplasm of upper lobe, right bronchus or lung
CPT/HCPCS: 36415; 80053; 85025; 96413; J9271

== ENCOUNTER 2023-09-27 09:58 | Emergency (ER) | payer OTHER, SELFPAY ==
[2023-09-27] VITALS (7 sets, daily range): BP systolic 118–183; BP diastolic 80–98; PULSE 65–81; RESP 11–20; TEMP 36.7–36.9; O2SAT 98–100
--- NOTE | ~2023-09-27 | XR_ITS ---
XR chest 1V portable Ordering provider: Junaid Steiner MD History: 53 years Male with . shortness of breath . Comparison: None. FINDINGS: MEDIASTINUM: The cardiac silhouette is not enlarged. Left central line with the tip overlying superio r vena cava. LUNGS: No infiltrates, effusions or pneumothorax. Postoperative changes in the right upper lobe area. OTHER: No free air under the diaphragm. Degenerative changes of the spine. IMPRESSION: No acute cardiopulmonary pathology. Reviewed, dictated and finalized at location A.
--- NOTE | ~2023-09-27 | CT_ITS ---
CT diagnostic chest w con Ordering provider: Junaid Steiner MD History: 53 years Male with . SOB HX R LUNG CA,KISHORE LOWER CP . Comparison: May 08, 2023 Technique: CT chest with IV contrast. Radiation reduction technique utilized. The dose-length product was 189.44 mGy Findings: VISUALIZED THORACIC INLET: Normal. MEDIASTINUM: Aorta/coronary arteries: The thoracic aorta is normal. Heart/other: The heart is not enlarged. Lymph nodes: No mediastinal or hilar adenopathy. Right paratracheal/right hilar soft tissue density with postoperative changes unchanged from previous examination LUNGS: Emphysematous changes of the lungs. Atelectatic changes in the left apical area. No pulmonary nodules or masses. No infiltrates or effusions. No pneumothorax. VISUALIZED UPPER ABDOMEN: Slightly thickening of the lower esophagus which may indicate reflux esopha gitis. Otherwise, the visualized upper abdomen is normal. MUSCULOSKELETAL: Soft tissues: The superficial soft tissues are normal. Bones: Age appropriate degenerative changes of the spine. Multilevel compression fractures from previ ous examination. IMPRESSION: No definite malignancy seen. No acute cardiopulmonary pathology. No change from previous examination. Reviewed, dictated and finalized at location A.
--- NOTE | 2023-09-27 10:22 | ED.SOB ---
HPI - SOB/Dyspnea General Chief Complaint: Shortness of Breath/Dyspnea Stated Complaint: SOB Source: patient Mode of arrival: ambulatory Limitations: no limitations History of Present Illness HPI Narrative: 53-year-old male, smoker with a history of spontaneous pneumothorax, COPD,right upper lobe lung cancer status post right upper lobectomy, mediastinal lymph node dissection status post RT/chemo and currently on immunotherapy went to his oncologist office where he was noted to have -- increasing shortness of breath. Dyspnea on exertion. This has been going on for the past few days. The patient denied any fever or chills. No chest pain. No cough or sputum production. No hemoptysis. He sent to the ED for further management. MD elicited complaint: shortness of breath and pain with inspiration Pertinent past history: COPD Onset (ago): day(s) Timing: constant Exacerbating factors: exertion and stress Relieving factors: bronchodilators Known history of: COPD Associated symptoms: denies other symptoms Related Data Home oxygen amount: none Home Medications Medication Instructions Recorded Confirmed albuterol 90 mcg/actuation aerosol 90 mcg inhalation Q4-8H PRN 03/07/23 09/27/23 inhaler Shortness Of Breath Or Wheezing fluticasone 250 mcg-salmeterol 50 1 inh inhalation Q12H 03/07/23 09/27/23 mcg/dose blistr powdr for inhalation (Advair Diskus) hydrocodone 5 mg-acetaminophen 325 1 tablet PO Q6-8H 09/27/23 09/27/23 mg tablet ipratropium 0.5 mg-albuterol 3 mg 3 ml inhalation PRN PRN SOB 09/27/23 09/27/23 (2.5 mg base)/3 mL nebulization soln lidocaine 5 % topical patch 1 patch transdermal DAILY PRN Pain 09/27/23 09/27/23 Allergies Allergy/AdvReac Type Severity Reaction Status Date / Time Penicillins Allergy Anaphylaxis Verified 09/27/23 10:04 rizatriptan Allergy Anaphylaxis Verified 09/27/23 10:04 Review of Systems Review of Systems: All systems reviewed & are unremarkable except as noted in HPI and below Constitutional: Constitutional: Reports as per HPI and Reports no additional constitutional complaints Eyes: Eyes: Reports as per HPI and Reports no additional eye complaints ENT: Reports system reviewed and no additional complaints, except as documented and Reports as per HPI Cardiovascular: Cardiovascular: Reports as per HPI and Reports no additional cardiovascular complaints Respiratory: Respiratory: Reports as per HPI, Reports no additional respiratory complaints and Reports dyspnea Gastrointestinal: Gastrointestinal: Reports as per HPI and Reports no additional gastrointestinal complaints Genitourinary: Genitourinary: Reports no additional male genitourinary complaints and Reports as per HPI Musculoskeletal: Musculoskeletal: Reports no additional musculoskeletal complaints and Reports as per HPI Integumentary/Breasts: Skin/Breast: Reports system reviewed and no additional complaints, except as docu and Reports as per HPI Neurologic: Reports system reviewed and no additional complaints, except as documented and Reports as per HPI Psychiatric: Psychiatric: Reports no additional psychiatric complaints and Reports as per HPI Endocrine: Endocrine: Reports no additional endocrine complaints and Reports as per HPI Hematologic/Lymphatic: Hematologic/Lymphatic: Reports no additional hematologic/lymphatic complaints and Reports as per HPI Allergic/Immunologic: Allergic/Immunologic: Reports no additional allergic/immunologic complaints and Reports as per HPI [facility] Past Medical History Medical History (Updated 09/27/23 @ 13:30 by Junaid Steiner MD) COPD (chronic obstructive pulmonary disease) Primary lung cancer Social History Social History Smoking status: Former smoker Exam Narrative: blood pressure 183/98. Oxygen saturation of 99% on room air with a respiratory rate of Const: General: no acute distress Orientation/consciousness: patient oriented x3 Limitations: no
--- NOTE | 2023-09-27 10:44 | ECG_ITS ---
Test Date: 2023-09-27 10:56:28 Measurements Intervals Fromberg Rate: 66 P: 78 NE: 178 QRS: 62 QRSD: 83 T: 69 QT: 352 QTc: 371 Interpretive Statements SINUS RHYTHM No previous ECG available for comparison Electronically Signed On 09-27-2023 15:49:54 CDT by Archana Toscano M.D.
[2023-09-27 11:14] LABS: Basophils Absolute Auto 0.06 K/mm3 (0.00-0.10); Basophils Percent Auto 0.8 % (0.0-1.0); Eosinophils Absolute Auto 0.39 K/mm3 (0.02-0.50); Hematocrit 41.3 % (40.0-54.0); Hemoglobin 14.5 g/dL (14.0-18.0); Immature Granulocyte Absolute 0.04 K/mm3 (0.00-0.00); Immature Granulocyte Percent A 0.5 % (0.0-0.0); Lymphocytes Absolute Auto 1.73 K/mm3 (1.10-4.50); Lymphocytes Percent Auto 22.2 % (18.0-42.0); Mean Corpuscular HGB Conc 35.1 g/dL (32-36); Mean Corpuscular Volume 94.1 fL (78.0-102.0); Mean Platelet Volume 9.8 fl (8.7-11.0); Monocytes Absolute Auto 0.71 K/mm3 (0.10-0.90); Monocytes Percent Auto 9.1 % (2.0-11.0); Neutrophils Absolute Auto 4.86 K/mm3 (1.70-7.20); Neutrophils Percent Auto 62.4 % (50.0-70.0); Platelet Count Result 326 K/mm3 (150-420); Red Blood Count 4.39 M/mm3 (4.70-6.10); Red Cell Distribution Width 12.5 % (11.6-14.4); White Blood Count 7.8 K/mm3 (4.8-10.8)
[2023-09-27 11:15] LABS: Base Excess ABG -0.9 mmol/L (0-2); HCO3 ABG 23.6 mmol/L (23-29); Oxygen Content ABG 20.2 %vol (16.0-22.0); Oxygen Saturation ABG 97.2 % (95-97); Oxyhemoglobin 96.5 % (94-100); PCO2 ABG 38.8 mmHg (35-45); PO2 ABG 95.9 mmHg (80-90)
[2023-09-27 11:17] LABS: Device ROOM AIR; Modified Allen's Test Pass; Site Drawn RIGHT RADIAL
[2023-09-27 11:32] LABS: Lactic Acid Reflex 1.4 mmol/L (0.4-2.0)
[2023-09-27 11:33] LABS: D Dimer 0.33 mg/L (0.19-0.50); INR 0.9; Partial Thromboplastin Time 28.5 Sec (23.9-30.70); Prothrombin Time 9.8 Seconds (9.50-12.1)
[2023-09-27 11:36] LABS: Alanine Aminotransferase 20 U/L (16-63); Albumin Level 3.9 g/dL (3.4-5.0); Alkaline Phosphatase 66 U/L (46-116); Anion Gap 7 mmol/L (4-12); Aspartate Amino Transferase 14 U/L (15-37); Bilirubin,Total 0.3 mg/dL (0.00-1.00); Blood Urea Nitrogen 10 mg/dL (7-18); Calcium 9.1 mg/dL (8.5-10.1); Carbon Dioxide 30 mmol/L (21-32); Chloride 101 mmol/L (98-108); Estimated CRCL calculation 83 ml/min; Estimated Glomerular Filt Rate > 60; Glucose 99 mg/dL (70-99); NT Pro B Type Natriuretic Pept 42 pg/mL (0-125); Osmolality Calculated 285 mOsm/kg (285-295); Potassium 4.2 mmol/L (3.5-5.1); Sodium 138 mmol/L (136-145); Total Protein 7.3 g/dL (6.4-8.2)
[2023-09-27 11:37] LABS: Troponin I 16.3 ng/L (0.00-60.4)
[2023-09-27] MEDS: LACTATED RINGERS 500 ML 999 ML IV CONT (12:26)
[2023-09-27] MEDS: HEPARIN SODIUM LOCK FLUSH 500 UNITS/5 ML SYRINGE IV PUSH (13:56)
== END 2023-09-27 14:04 | disposition home or self-care (01) ==
PROVIDERS: Emergency Provider Internal Medicine Critical Care Medicine; PCP Internal Medicine Hematology
DX: R06.02 Shortness of breath (principal); J44.9 Chronic obstructive pulmonary disease, unspecified; Z85.118 Personal history of other malignant neoplasm of bronchus and lung; Z79.891 Long term (current) use of opiate analgesic; Z87.891 Personal history of nicotine dependence
CPT/HCPCS: 36415; 36600; 71045; 71260; 80053; 82805; 83605; 83880; 84484; 85025; 85380; 85610; 85730; 93005; 96361; 96374; 99284; J7120; Q9967

== ENCOUNTER 2023-10-05 08:43 | Outpatient (CLI) | payer OTHER, SELFPAY ==
[2023-10-05 08:45] VITALS: BMI 24.7
[2023-10-05 09:07] LABS: Basophils Absolute Auto 0.05 K/mm3 (0.00-0.10); Basophils Percent Auto 0.7 % (0.0-1.0); Eosinophils Absolute Auto 0.42 K/mm3 (0.02-0.50); Eosinophils Percent Auto 5.8 % (1.0-6.0); Hematocrit 40.2 % (40.0-54.0); Hemoglobin 14.1 g/dL (14.0-18.0); Immature Granulocyte Absolute 0.02 K/mm3 (0.00-0.00); Immature Granulocyte Percent A 0.3 % (0.0-0.0); Lymphocytes Percent Auto 19.3 % (18.0-42.0); Mean Corpuscular HGB Conc 35.1 g/dL (32-36); Mean Corpuscular Hemoglobin 32.8 pg (27.0-31.0); Mean Corpuscular Volume 93.5 fL (78.0-102.0); Mean Platelet Volume 9.8 fl (8.7-11.0); Monocytes Absolute Auto 0.75 K/mm3 (0.10-0.90); Monocytes Percent Auto 10.4 % (2.0-11.0); Neutrophils Percent Auto 63.5 % (50.0-70.0); Platelet Count Result 305 K/mm3 (150-420); Red Cell Distribution Width 12.7 % (11.6-14.4); White Blood Count 7.2 K/mm3 (4.8-10.8)
[2023-10-05 09:28] VITALS: BP 116/80; PULSE 64; RESP 18; TEMP 36.3; O2SAT 98
[2023-10-05 09:31] LABS: Alanine Aminotransferase 13 U/L (16-63); Albumin Level 3.9 g/dL (3.4-5.0); Alkaline Phosphatase 65 U/L (46-116); Anion Gap 9 mmol/L (4-12); Aspartate Amino Transferase 19 U/L (15-37); Bilirubin,Total 0.6 mg/dL (0.00-1.00); Blood Urea Nitrogen 12 mg/dL (7-18); Carbon Dioxide 27 mmol/L (21-32); Chloride 101 mmol/L (98-108); Estimated CRCL calculation 81 ml/min; Estimated Glomerular Filt Rate > 60; Glucose 108 mg/dL (70-99); Osmolality Calculated 284 mOsm/kg (285-295); Potassium 4.3 mmol/L (3.5-5.1); Sodium 137 mmol/L (136-145); Thyroid Stimulating Hormone 4.15 uIU/mL (0.36-3.74); Total Protein 7.1 g/dL (6.4-8.2)
[2023-10-05] MEDS: PEMBROLIZUMAB 200 MG in SODIUM CHLORIDE 0.9% IV 100 ML IVPB (09:45)
[2023-10-05] MEDS: HEPARIN SODIUM LOCK FLUSH 500 UNITS/5 ML SYRINGE IV PUSH (10:20)
[2023-10-05 10:30] VITALS: BP 121/70; PULSE 72; RESP 16; O2SAT 98
--- NOTE | 2023-10-05 10:52 | PC.NURSE ---
Patient tolerated IV Keytruda well today. Refer to MAR/patient care notes.
[2023-10-07 11:33] LABS: Cortisol Random 11.6 mcg/dL
== END 2023-10-05 08:44 | disposition home or self-care (01) ==
PROVIDERS: PCP Internal Medicine Hematology; Visit Provider Internal Medicine Hematology
DX: Z51.11 Encounter for antineoplastic chemotherapy (principal); C34.11 Malignant neoplasm of upper lobe, right bronchus or lung
CPT/HCPCS: 36415; 80053; 82533; 84443; 85025; 96413; J9271

== ENCOUNTER 2023-11-02 09:50 | Outpatient (CLI) | payer OTHER, SELFPAY ==
[2023-11-02 10:00] VITALS: BP 140/79; PULSE 80; RESP 16; TEMP 36.1; O2SAT 97; BMI 25.2
[2023-11-02 10:10] LABS: Basophils Absolute Auto 0.04 K/mm3 (0.00-0.10); Basophils Percent Auto 0.6 % (0.0-1.0); Eosinophils Absolute Auto 0.37 K/mm3 (0.02-0.50); Eosinophils Percent Auto 5.1 % (1.0-6.0); Hematocrit 40.7 % (40.0-54.0); Hemoglobin 14.1 g/dL (14.0-18.0); Immature Granulocyte Absolute 0.02 K/mm3 (0.00-0.00); Immature Granulocyte Percent A 0.3 % (0.0-0.0); Lymphocytes Absolute Auto 1.86 K/mm3 (1.10-4.50); Lymphocytes Percent Auto 25.6 % (18.0-42.0); Mean Corpuscular HGB Conc 34.6 g/dL (32-36); Mean Corpuscular Hemoglobin 32.4 pg (27.0-31.0); Mean Corpuscular Volume 93.6 fL (78.0-102.0); Mean Platelet Volume 9.9 fl (8.7-11.0); Monocytes Absolute Auto 0.64 K/mm3 (0.10-0.90); Monocytes Percent Auto 8.8 % (2.0-11.0); Neutrophils Absolute Auto 4.33 K/mm3 (1.70-7.20); Neutrophils Percent Auto 59.6 % (50.0-70.0); Platelet Count Result 330 K/mm3 (150-420); Red Blood Count 4.35 M/mm3 (4.70-6.10); Red Cell Distribution Width 12.9 % (11.6-14.4); White Blood Count 7.3 K/mm3 (4.8-10.8)
[2023-11-02 10:25] LABS: Alanine Aminotransferase 22 U/L (16-63); Albumin Level 3.9 g/dL (3.4-5.0); Alkaline Phosphatase 68 U/L (46-116); Anion Gap 9 mmol/L (4-12); Aspartate Amino Transferase 16 U/L (15-37); Bilirubin,Total 0.4 mg/dL (0.00-1.00); Blood Urea Nitrogen 10 mg/dL (7-18); Calcium 9.1 mg/dL (8.5-10.1); Carbon Dioxide 27 mmol/L (21-32); Chloride 103 mmol/L (98-108); Estimated CRCL calculation 80 ml/min; Estimated Glomerular Filt Rate > 60; Glucose 110 mg/dL (70-99); Osmolality Calculated 288 mOsm/kg (285-295); Potassium 4.2 mmol/L (3.5-5.1); Sodium 139 mmol/L (136-145); Total Protein 7.4 g/dL (6.4-8.2)
[2023-11-02] MEDS: PEMBROLIZUMAB 200 MG in SODIUM CHLORIDE 0.9% IV 100 ML IVPB (11:02)
[2023-11-02] MEDS: HEPARIN SODIUM LOCK FLUSH 500 UNITS/5 ML SYRINGE IV PUSH (11:40)
[2023-11-02 11:41] VITALS: BP 131/77; PULSE 88; RESP 14; TEMP 36.2; O2SAT 97
--- NOTE | 2023-11-02 11:42 | PC.NURSE ---
Keytruda infusion administered see MAR/patient care notes. Tolerated well.
== END 2023-11-02 09:51 | disposition home or self-care (01) ==
PROVIDERS: Visit Provider Internal Medicine Hematology
DX: Z51.11 Encounter for antineoplastic chemotherapy (principal); C34.11 Malignant neoplasm of upper lobe, right bronchus or lung
CPT/HCPCS: 36415; 80053; 85025; 96413; J9271

== ENCOUNTER 2023-11-22 10:37 | Outpatient (CLI) | payer OTHER, SELFPAY ==
[2023-11-22 10:52] LABS: Basophils Absolute Auto 0.05 K/mm3 (0.00-0.10); Basophils Percent Auto 0.7 % (0.0-1.0); Eosinophils Percent Auto 2.9 % (1.0-6.0); Hematocrit 41.8 % (40.0-54.0); Hemoglobin 14.4 g/dL (14.0-18.0); Immature Granulocyte Absolute 0.01 K/mm3 (0.00-0.00); Immature Granulocyte Percent A 0.1 % (0.0-0.0); Lymphocytes Absolute Auto 1.69 K/mm3 (1.10-4.50); Lymphocytes Percent Auto 24.3 % (18.0-42.0); Mean Corpuscular HGB Conc 34.4 g/dL (32-36); Mean Corpuscular Hemoglobin 32.8 pg (27.0-31.0); Mean Corpuscular Volume 95.2 fL (78.0-102.0); Mean Platelet Volume 9.8 fl (8.7-11.0); Monocytes Absolute Auto 0.54 K/mm3 (0.10-0.90); Monocytes Percent Auto 7.8 % (2.0-11.0); Neutrophils Absolute Auto 4.46 K/mm3 (1.70-7.20); Neutrophils Percent Auto 64.2 % (50.0-70.0); Platelet Count Result 319 K/mm3 (150-420); Red Blood Count 4.39 M/mm3 (4.70-6.10); Red Cell Distribution Width 13.2 % (11.6-14.4)
[2023-11-22 14:02] LABS: Alanine Aminotransferase 28 U/L (16-63); Albumin Level 4.1 g/dL (3.4-5.0); Alkaline Phosphatase 66 U/L (46-116); Anion Gap 8 mmol/L (4-12); Aspartate Amino Transferase 16 U/L (15-37); Bilirubin,Total 0.6 mg/dL (0.00-1.00); Blood Urea Nitrogen 8 mg/dL (7-18); Calcium 9.4 mg/dL (8.5-10.1); Carbon Dioxide 27 mmol/L (21-32); Chloride 105 mmol/L (98-108); Estimated Glomerular Filt Rate > 60; Glucose 98 mg/dL (70-99); Osmolality Calculated 288 mOsm/kg (285-295); Potassium 4.5 mmol/L (3.5-5.1); Sodium 140 mmol/L (136-145); Total Protein 7.2 g/dL (6.4-8.2)
[2023-11-24 05:39] LABS: Cortisol Random 7.5 mcg/dL
== END 2023-11-22 10:38 | disposition home or self-care (01) ==
LOC: CHSLAB 10:40
PROVIDERS: Visit Provider Internal Medicine Hematology
DX: C34.90 Malignant neoplasm of unspecified part of unspecified bronchus or lung (principal)
CPT/HCPCS: 36415; 80053; 82533; 84443; 85025

== ENCOUNTER 2023-11-23 09:59 | Outpatient (CLI) | payer OTHER, SELFPAY ==
[2023-11-23 10:05] VITALS: BMI 25.3
[2023-11-23] MEDS: PEMBROLIZUMAB IVPB (10:15)
[2023-11-23] MEDS: SODIUM CHLORIDE 0.9% IVPB (10:15)
[2023-11-23] MEDS: PEMBROLIZUMAB 200 MG in SODIUM CHLORIDE 0.9% IV 100 ML IVPB (10:15)
[2023-11-23 10:16] VITALS: BP 124/90; PULSE 78; RESP 16; TEMP 36.6; O2SAT 98
[2023-11-23] MEDS: HEPARIN SODIUM LOCK FLUSH 500 UNITS/5 ML SYRINGE IV PUSH (10:48)
[2023-11-23 11:03] VITALS: BP 124/88; PULSE 72; RESP 14; O2SAT 98
--- NOTE | 2023-11-23 11:04 | PC.NURSE ---
Patient tolerated Keytruda infusion well. Pembrolizumab 200mg in 100 Normal Saline administered at 200 ml/hr started at 1015 and stopped 1045.
== END 2023-11-23 10:00 | disposition home or self-care (01) ==
PROVIDERS: Visit Provider Internal Medicine Hematology
DX: Z51.11 Encounter for antineoplastic chemotherapy (principal); C34.11 Malignant neoplasm of upper lobe, right bronchus or lung
CPT/HCPCS: 96413; J7050; J9271

== ENCOUNTER 2023-11-27 08:56 | Outpatient (CLI) | payer OTHER, SELFPAY | END 2023-11-27 08:57 | disposition home or self-care (01) | LOC: CHSLAB 09:00 | PROVIDERS: Visit Provider Internal Medicine Hematology | DX: C34.90 Malignant neoplasm of unspecified part of unspecified bronchus or lung (principal) | CPT/HCPCS: 36415; 82533 ==

== ENCOUNTER 2023-12-14 09:07 | Outpatient (CLI) | payer OTHER, SELFPAY ==
[2023-12-14 09:31] LABS: Basophils Absolute Auto 0.06 K/mm3 (0.00-0.10); Basophils Percent Auto 0.9 % (0.0-1.0); Eosinophils Absolute Auto 0.35 K/mm3 (0.02-0.50); Eosinophils Percent Auto 5.3 % (1.0-6.0); Hematocrit 43.3 % (40.0-54.0); Hemoglobin 15.1 g/dL (14.0-18.0); Immature Granulocyte Absolute 0.03 K/mm3 (0.00-0.00); Immature Granulocyte Percent A 0.5 % (0.0-0.0); Lymphocytes Absolute Auto 1.58 K/mm3 (1.10-4.50); Lymphocytes Percent Auto 24.1 % (18.0-42.0); Mean Corpuscular HGB Conc 34.9 g/dL (32-36); Mean Corpuscular Hemoglobin 32.8 pg (27.0-31.0); Mean Corpuscular Volume 93.9 fL (78.0-102.0); Mean Platelet Volume 10.2 fl (8.7-11.0); Monocytes Absolute Auto 0.56 K/mm3 (0.10-0.90); Monocytes Percent Auto 8.5 % (2.0-11.0); Neutrophils Absolute Auto 3.98 K/mm3 (1.70-7.20); Neutrophils Percent Auto 60.7 % (50.0-70.0); Platelet Count Result 302 K/mm3 (150-420); Red Blood Count 4.61 M/mm3 (4.70-6.10); Red Cell Distribution Width 12.8 % (11.6-14.4); White Blood Count 6.6 K/mm3 (4.8-10.8)
[2023-12-14 09:38] VITALS: BP 123/76; PULSE 64; RESP 14; TEMP 36.4; O2SAT 97; BMI 25.5
[2023-12-14 10:05] LABS: Alanine Aminotransferase 28 U/L (16-63); Albumin Level 3.9 g/dL (3.4-5.0); Alkaline Phosphatase 62 U/L (46-116); Anion Gap 8 mmol/L (4-12); Aspartate Amino Transferase 17 U/L (15-37); Bilirubin,Total 0.3 mg/dL (0.00-1.00); Blood Urea Nitrogen 11 mg/dL (7-18); Calcium 9.4 mg/dL (8.5-10.1); Carbon Dioxide 27 mmol/L (21-32); Chloride 105 mmol/L (98-108); Estimated CRCL calculation 78 ml/min; Estimated Glomerular Filt Rate > 60; Free T4 Free Thyroxine 0.85 ng/dL (0.76-1.46); Glucose 109 mg/dL (70-99); Osmolality Calculated 290 mOsm/kg (285-295); Potassium 4.7 mmol/L (3.5-5.1); Sodium 140 mmol/L (136-145); Thyroid Stimulating Hormone 1.67 uIU/mL (0.36-3.74); Total Protein 7.5 g/dL (6.4-8.2)
[2023-12-14] MEDS: PEMBROLIZUMAB 200 MG in SODIUM CHLORIDE 0.9% IV 100 ML IVPB (10:30)
[2023-12-14] MEDS: HEPARIN SODIUM LOCK FLUSH 500 UNITS/5 ML SYRINGE IV PUSH (11:09)
[2023-12-14 11:10] VITALS: BP 128/69; PULSE 64; RESP 14; TEMP 36.4; O2SAT 96
--- NOTE | 2023-12-14 11:21 | PC.NURSE ---
Patient tolerated infusion/treatment well. see MAR/patient care notes.
[2023-12-15 09:04] LABS: Cortisol Random 11.5 mcg/dL
== END 2023-12-14 09:08 | disposition home or self-care (01) ==
PROVIDERS: Visit Provider Internal Medicine Hematology
DX: Z51.11 Encounter for antineoplastic chemotherapy (principal); C34.90 Malignant neoplasm of unspecified part of unspecified bronchus or lung
CPT/HCPCS: 36415; 36591; 80053; 82533; 84439; 84443; 85025; 96413; J9271

== ENCOUNTER 2023-12-29 08:08 | Outpatient (CLI) | payer OTHER, SELFPAY ==
--- NOTE | ~2023-12-29 | CT_ITS ---
Clinical Indication: Lung cancer right-sided chest pain CT Scan of the Chest, Abdomen, and Pelvis with Contrast: Technique: Contiguous sections were acquired throughout the chest, abdomen, and pelvis after intraven ous administration of 100 cc of Omnipaque 350. Dose reduction technique was used on this scan by uti lizing automated exposure control and iterative reconstruction technique. The dose-length product (DL P) was 431.04 mGy-cm. Comparison: 09/27/2023, 05/08/2023 Findings: There is no evidence of any significant mediastinal, hilar or axillary lymphadenopathy. The mediastin al soft tissues appear normal. There is no evidence of pleural or pericardial effusion. Stable probable posttreatment change/treated disease at the right hilar region. Moderate to advanced pulmonary emphysema present. Stable right upper lobe distortion/scarring. Stable calcified left upper lobe granuloma. The liver, spleen, pancreas, gallbladder, adrenals and kidneys are within normal limits. No evidence of aortic aneurysm. No lymphadenopathy. No bowel obstruction or bowel wall thickening. There is no evidence to suggest acute appendicitis. Urinary bladder is unremarkable. No pelvic mass seen. No ascites. Stable thoracic spine compression d eformities are noted. Impression: Stable posttreatment changes in the right perihilar region. No evidence for active malignancy or meta static disease. Moderate to advanced emphysema. No significant abnormality in the abdomen or pelvis. Reviewed, dictated and finalized at [facility]. [facility] Impression: Stable posttreatment changes in the right perihilar region. No evidence for act bill malignancy or metastatic disease. Moderate to advanced emphysema. No significant abnormality in the abdomen or pelvis.
[2023-12-29 08:26] LABS: Basophils Absolute Auto 0.07 K/mm3 (0.00-0.10); Basophils Percent Auto 0.9 % (0.0-1.0); Eosinophils Absolute Auto 0.44 K/mm3 (0.02-0.50); Eosinophils Percent Auto 5.5 % (1.0-6.0); Hematocrit 44.8 % (40.0-54.0); Hemoglobin 15.7 g/dL (14.0-18.0); Immature Granulocyte Absolute 0.03 K/mm3 (0.00-0.00); Immature Granulocyte Percent A 0.4 % (0.0-0.0); Lymphocytes Absolute Auto 1.81 K/mm3 (1.10-4.50); Lymphocytes Percent Auto 22.5 % (18.0-42.0); Mean Corpuscular Hemoglobin 32.9 pg (27.0-31.0); Mean Corpuscular Volume 93.9 fL (78.0-102.0); Mean Platelet Volume 9.8 fl (8.7-11.0); Monocytes Absolute Auto 0.69 K/mm3 (0.10-0.90); Monocytes Percent Auto 8.6 % (2.0-11.0); Neutrophils Percent Auto 62.1 % (50.0-70.0); Platelet Count Result 363 K/mm3 (150-420); Red Blood Count 4.77 M/mm3 (4.70-6.10); Red Cell Distribution Width 12.7 % (11.6-14.4)
[2023-12-29 08:33] LABS: Estimated Glomerular Filt Rate > 60
[2023-12-29 09:08] LABS: Alanine Aminotransferase 21 U/L (16-63); Albumin Level 4.2 g/dL (3.4-5.0); Alkaline Phosphatase 66 U/L (46-116); Anion Gap 9 mmol/L (4-12); Aspartate Amino Transferase 15 U/L (15-37); Bilirubin,Total 0.4 mg/dL (0.00-1.00); Blood Urea Nitrogen 10 mg/dL (7-18); Calcium 9.8 mg/dL (8.5-10.1); Carbon Dioxide 29 mmol/L (21-32); Chloride 102 mmol/L (98-108); Estimated Glomerular Filt Rate > 60; Free T4 Free Thyroxine 0.79 ng/dL (0.76-1.46); Glucose 101 mg/dL (70-99); Osmolality Calculated 289 mOsm/kg (285-295); Potassium 4.8 mmol/L (3.5-5.1); Sodium 140 mmol/L (136-145); Thyroid Stimulating Hormone 1.54 uIU/mL (0.36-3.74); Total Protein 7.4 g/dL (6.4-8.2)
[2024-01-02 09:19] LABS: Cortisol Random 22.4 mcg/dL
== END 2023-12-29 08:09 | disposition home or self-care (01) ==
LOC: CHSIMG 08:10
PROVIDERS: PCP Internal Medicine Hematology; Visit Provider Internal Medicine Hematology
DX: C34.90 Malignant neoplasm of unspecified part of unspecified bronchus or lung (principal); Z98.890 Other specified postprocedural states; J43.9 Emphysema, unspecified
CPT/HCPCS: 36415; 71260; 74177; 80053; 82533; 84439; 84443; 85025; Q9967

== ENCOUNTER 2024-01-03 08:14 | Outpatient (CLI) | payer OTHER, SELFPAY ==
[2024-01-03 08:33] VITALS: BP 143/79; PULSE 80; RESP 16; TEMP 36.3; O2SAT 97; BMI 25.2
[2024-01-03] MEDS: PEMBROLIZUMAB 200 MG in SODIUM CHLORIDE 0.9% IV 100 ML IVPB (08:48)
[2024-01-03] MEDS: HEPARIN SODIUM LOCK FLUSH 500 UNITS/5 ML SYRINGE IV PUSH (09:18)
[2024-01-03 09:26] VITALS: BP 132/74; PULSE 76; RESP 14; O2SAT 97
--- NOTE | 2024-01-03 09:27 | PC.NURSE ---
Patient tolerated treatment well. SEE MAR/Patient care notes.
== END 2024-01-03 08:15 | disposition home or self-care (01) ==
PROVIDERS: Visit Provider Internal Medicine Hematology
DX: Z51.11 Encounter for antineoplastic chemotherapy (principal); C34.11 Malignant neoplasm of upper lobe, right bronchus or lung
CPT/HCPCS: 96413; J9271

== ENCOUNTER 2024-01-25 08:54 | Outpatient (CLI) | payer OTHER, SELFPAY ==
[2024-01-25 09:15] VITALS: BP 129/83; PULSE 78; RESP 16; TEMP 36.4; O2SAT 97; BMI 25.5
[2024-01-25 09:32] LABS: Basophils Absolute Auto 0.06 K/mm3 (0.00-0.10); Basophils Percent Auto 0.8 % (0.0-1.0); Eosinophils Absolute Auto 0.56 K/mm3 (0.02-0.50); Eosinophils Percent Auto 7.1 % (1.0-6.0); Hematocrit 40.1 % (40.0-54.0); Hemoglobin 14.2 g/dL (14.0-18.0); Immature Granulocyte Absolute 0.02 K/mm3 (0.00-0.00); Immature Granulocyte Percent A 0.3 % (0.0-0.0); Lymphocytes Percent Auto 20.3 % (18.0-42.0); Mean Corpuscular HGB Conc 35.4 g/dL (32-36); Mean Corpuscular Hemoglobin 32.9 pg (27.0-31.0); Mean Platelet Volume 9.9 fl (8.7-11.0); Monocytes Absolute Auto 0.75 K/mm3 (0.10-0.90); Monocytes Percent Auto 9.5 % (2.0-11.0); Neutrophils Absolute Auto 4.89 K/mm3 (1.70-7.20); Platelet Count Result 321 K/mm3 (150-420); Red Blood Count 4.31 M/mm3 (4.70-6.10); Red Cell Distribution Width 12.7 % (11.6-14.4); White Blood Count 7.9 K/mm3 (4.8-10.8)
[2024-01-25 09:50] LABS: Alanine Aminotransferase 23 U/L (16-63); Albumin Level 3.8 g/dL (3.4-5.0); Alkaline Phosphatase 59 U/L (46-116); Anion Gap 11 mmol/L (4-12); Aspartate Amino Transferase 16 U/L (15-37); Bilirubin,Total 0.6 mg/dL (0.00-1.00); Blood Urea Nitrogen 16 mg/dL (7-18); Carbon Dioxide 26 mmol/L (21-32); Chloride 102 mmol/L (98-108); Estimated CRCL calculation 82 ml/min; Estimated Glomerular Filt Rate > 60; Glucose 95 mg/dL (70-99); Osmolality Calculated 289 mOsm/kg (285-295); Potassium 4.5 mmol/L (3.5-5.1); Sodium 139 mmol/L (136-145); Total Protein 6.9 g/dL (6.4-8.2)
[2024-01-25] MEDS: PEMBROLIZUMAB 200 MG in SODIUM CHLORIDE 0.9% IV 100 ML IVPB (10:04)
[2024-01-25] MEDS: HEPARIN SODIUM LOCK FLUSH 500 UNITS/5 ML SYRINGE IV PUSH (10:45)
[2024-01-25 10:47] VITALS: BP 117/69; PULSE 72; RESP 16; TEMP 36.5; O2SAT 97
--- NOTE | 2024-01-25 10:48 | PC.NURSE ---
Patient tolerated infusion treatment well. SEE MAR/patient care notes.
== END 2024-01-25 08:55 | disposition home or self-care (01) ==
PROVIDERS: Visit Provider Internal Medicine Hematology
DX: Z51.11 Encounter for antineoplastic chemotherapy (principal); C34.11 Malignant neoplasm of upper lobe, right bronchus or lung
CPT/HCPCS: 36415; 80053; 85025; 96413; J9271

== ENCOUNTER 2024-03-06 13:12 | Outpatient (CLI) | payer OTHER, SELFPAY ==
[2024-03-06] MEDS: HEPARIN SODIUM LOCK FLUSH 500 UNITS/5 ML SYRINGE IV PUSH (13:19)
[2024-03-06 13:28] VITALS: BP 123/71; PULSE 88; RESP 16; TEMP 36.3; O2SAT 97; BMI 26.9
--- OUTSIDE RECORDS SUMMARY | 2024-03-06 14:13 | XMS_ITS | Clinical Summary ---
Author Organization [facility] Address Formerly [facility] [place] [address] [place] [address] Care Team Providers Care Information Technology Coordinator Name Role Phone Jim Álvarez MD Primary Care Provider Izabella Farah MD Unavailable Kathy Marquez TRUCK REPAIR SUPERVISOR-C Unavailable [phone] Allergies Active Allergy Reactions Criticality Noted Date Comments Penicillins Unknown 07/26/2017 Rizatriptan Anaphylaxis High 07/26/2017 Medications albuterol sulfate HFA 108 (90 Base) MCG/ACT inhaler Inhale 2 puffs into the lungs. 01/22/2018 Active ADVAIR DISKUS 250-50 MCG/ACT inhaler 2 (two) times daily. 07/06/2021 Active atorvastatin (LIPITOR) 20 MG tablet Take 1 tablet (20 mg total) by mouth nightly at bedtime. Active HYDROcodone-neha taminophen (NORCO) 5-325 MG tabletIndicatio ns:Acute Pain < 3 Day Supply,Acute Pain < 7 Day Supply Take 1 tablet by mouth every 6 (six) hours as needed. Indications: Acute Pain < 3 Day Supply, Acute Pain < 7 Day Supply 15 tablet 12/04/2022 Active Active Problems No known active problems Encounters Date Type Department Care Team Description 01/10/2024 Transcribe Orders [facility] Pre Access Team [address] [place] [address] Charli Lua MD from Last 3 Months Family History Medical History Relation Comments Heart Disease Father COPD Mother Heart Attack Mother Thyroid Disease Mother Relation Status Comments Father Mother Alive Social History Tobacco Use Types Packs/Day Years Used Date Smoking Tobacco: Every Day Cigarettes Smokeless Tobacco: Never Alcohol Use Standard Drinks/Week Comments Never 0 (1 standard drink = 0.6 oz pur e alcohol) occassional Sex and Gender Information Value Date Recorded Sex Assigned at Male 10/26/2022 6:47 AM CDT Legal Sex Male 3:32 PM CDT Gender Identity Male 10/26/2022 6:47 AM CDT Sexual Orientation Straight 10/26/2022 6: 47 AM CDT Occupation Industry Job Start Date Job End Date works at [employer] Not on file Not on file Not on fi le Last Filed Vital Signs Vital Sign Reading Time Taken Comments Blood Pressure 135/80 12/03/2022 11:30 PM CDT Pulse 75 12/03/2022 11:30 PM CDT Temperature 36.6 ??C (97.8 ??F) 12/03/2022 11:37 PM C DT Respiratory Rate 12 12/03/2022 11:30 PM CDT Oxygen Saturation 99% 12/03/2022 11:30 PM CDT Inhaled Oxygen Concentration - - Weight 61.2 kg (135 lb) 12/03/2022 7:33 PM CDT Height 170.2 cm (5' 7 ) 12/03/2022 7:33 PM CDT Body Mass Index 21.14 12/03/2022 7:33 PM CDT Plan of Treatment Health Maintenance Due Date Last Done Comments Colorectal Cancer Screening Colonoscopy (10 Years) 1971 Annual Physical 1974 COVID-19 Vaccine (#1) 1976 Pneumococcal Vaccine: Pediat rics (0 to 5 Years) and At-Risk Patients (6 to 64 Years) (1 of 2 - PCV) 1977 Hepatitis C 1989 DTaP, Tdap and Td Vaccines ( 1 - Tdap) 1990 Hepatitis B Vaccines (1 of 3 - 19+ 3-dose series) 1990 Zoster Vaccines (1 of 2) 1990 Influenza Adult (#1) 2023 Meningococcal B Vaccine Aged Out No l onger eligible based on patient's age to complete this topic Meningococcal Vaccine Aged Out No gladys misha eligible based on patient's age to complete this topic RSV Immunizations Under 20 Months Aged Out No longer eligible based on patient's age to complete this topic Insurance RAMIREZ RAMIREZ RAMIREZ Care Teams Information Technology Coordinator Relationship Specialty Start Date End Date Jim Álvarez MD [address] [place] [address] [place] [address] PCP - General FAMILY PRACTICE 05/02/21 Izabella Farah MD [address] [place] [address] Consulting Physician CARDIOVASCULAR DISEASE 10/28/22 Kathy Marquez NP-C [address] [place] [address] [place] [address] Nurse Practitioner Family 11/02/22
--- OUTSIDE RECORDS SUMMARY | 2024-03-06 14:13 | XMS_ITS | Clinical Summary ---
Author Organization [facility] Address [address] [facility] [place] [address] Phone Care Team Providers Care Hospice Administrator Name Role Phone Britton Bean MD Primary Care Provider [phone] Allergies Active Allergy Reactions Criticality Noted Date Comments Rizatriptan Anaphylaxis 07/26/2017 Penicillins Unknown 07/26/2017 Medications HYDROcodone-neha taminophen (NORCO) 5-325 MG Tablet 1 Tab every 8 hours as needed. 0 8 Active traMADol (ULTRAM) 50 MG Tablet 2 9 Active fluticasone-lisa meterol (ADVAIR DISKUS) 250-50 MCG/DOSE AEROSOL POWDER, BREATH ACTIVATEDIndica tions:Pulmonary Emphysema take 1 Puff by inhalation 2 times daily. Indications: Emphysema of the Lung Active albuterol (VENTOLIN HFA) 108 (90 Base) MCG/ACT Aerosol Solution take 2 Puffs by inhalation every 6 hours as needed for Wheezing or Cough. Active escitalopram (LEXAPRO) 10 MG Tablet TAKE 1 TABLET BY MOUTH ONCE DAILY 0 Active methylPREDNISol one (MEDROL DOSPACK) 4 MG Tablet Therapy Pack TAKE BY MOUTH DIRECTED ON INSIDE OF PACKAGE 0 Active Active Problems Problem Noted Date Diagnosed Date Anxiety 01/27/2020 Hx of pneumothorax 11/27/2017 Pleuritic chest pain 11/27/2017 Panlobular emphysema 07/26/2017 SOB (shortness of breath) 07/26/2017 Tobacco use disorder 07/26/2017 Social History Tobacco Use Types Packs/Day Years Used Date Smoking Tobacco: Every Day Cigarettes 1 35 Smokeless Tobacco: Never Tobacco Cessation:Ready to Q uit: Yes; Counseling Given: No Alcohol Use Standard Drinks/Week Comments Yes 0 (1 standard drink = 0.6 oz pur e alcohol) occasionally Sex and Gender Information Value Date Recorded Sex Assigned at Not on file Legal Sex Male 10:35 AM CDT Gender Identity Not on file Sexual Orientation Not on file Last Filed Vital Signs Vital Sign Reading Time Taken Comments Blood Pressure 142/86 02/20/2019 1:19 PM PEST CONTROL TECHNICIAN Pulse 75 02/20/2019 1:19 PM PEST CONTROL TECHNICIAN Temperature 36.4 ??C (97.5 ??F) 02/20/2019 1:19 PM CS T Respiratory Rate 16 02/20/2019 1:19 PM PEST CONTROL TECHNICIAN Oxygen Saturation 98% 02/20/2019 1:19 PM PEST CONTROL TECHNICIAN Inhaled Oxygen Concentration - - Weight 65.3 kg (144 lb) 02/20/2019 1:19 PM PEST CONTROL TECHNICIAN Height 175.3 cm (5' 9 ) 02/20/2019 1:19 PM PEST CONTROL TECHNICIAN Body Mass Index 21.27 02/20/2019 1:19 PM PEST CONTROL TECHNICIAN Plan of Treatment Health Maintenance Due Date Last Done Comments Hepatitis C Virus (HCV) Screening 1971 TdaP Immunization 1971 Pneumococcal Immunization Co mbined (1 of 2 - PCV) 1977 Hepatitis B Immunization (1 of 3 - 19+ 3-dose series) 1990 Pneumococcal Immunization (5 0+ years) (1 of 2 - PCV) 1990 Colonoscopy 2016 Colorectal Cancer Screening 2016 Cologuard 2021 Immunochemical Fecal Occult Blood 2021 Zoster Immunization (1 of 2) 2021 Influenza Immunization (#1) 2023 SARS-COV-2 Immunization ( - 2023- season) 2023 Respiratory Syncytial Virus (RSV) Immunization (Adult) (1 - 1-dose 75+ series) 2046 Meningococcal Immunization (ACWY) Aged Out No longer eligible based on patient's age to complete this topic Rotavirus Immunization Aged Out No lo nger eligible based on patient's age to complete this topic Insurance MEDICAID SUCCESS Care Teams Hospice Administrator Relationship Specialty [place] [address] [place] [address] PCP - General Family Medicine 05/26/17
--- OUTSIDE RECORDS SUMMARY | 2024-03-06 14:13 | XMS_ITS | Encounter Summary ---
Author Organization [facility] Address [address] [place] [address]. [place] [address] [place] [address] Care Team Providers Care Chicken Tender Name Role Phone Jim Álvarez MD Primary Care Provider Izabella Farah MD Unavailable Kathy Marquez DIABETES TRAINER-C Unavailable [phone] Encounter Details Date Type Department Care Team (Late st Contact Info) Description 11/02/2022 Abstract [facility] [address] [place] [address] Abstract, Doc Pccl Social History Tobacco Use Types Packs/Day Years [...] Start Date Job End Date works at [employer] Not on file Not on file Not on fi le documented as of this encounter Plan of Treatment Not on file documented as of this encounter Visit Diagnoses Not on filedocumented in this encounter Care Teams Chicken Tender Relationship Specialty Start Date End Date Jim Á[place]varez [place] [address] [place] [address] [place] [phone] PCP - General FAMILY PRACTICE 05/02/21 Izabella Farah MD [address] [place] [address] Consulting Physician CARDIOVASCULAR DISEASE 10/28/22 Kathy Marquez NP-C [address] [place] [address] [place] [address] Nurse Practitioner Family 11/02/22 documented as of this encounter
== END 2024-03-06 13:13 | disposition home or self-care (01) ==
PROVIDERS: Visit Provider Internal Medicine Hematology
DX: Z45.2 Encounter for adjustment and management of vascular access device (principal); C34.90 Malignant neoplasm of unspecified part of unspecified bronchus or lung
CPT/HCPCS: 96523

== ENCOUNTER 2024-04-03 08:33 | Emergency (ER) | payer OTHER, SELFPAY ==
[2024-04-03] VITALS (26 sets, daily range): BP systolic 138–159; BP diastolic 85–101; PULSE 62–80; RESP 13–25; TEMP 36.4–36.8; O2SAT 96–100
--- NOTE | ~2024-04-03 | XR_ITS ---
EXAMINATION: XR chest 1V portable DATE: 04/03/2024 09:55 INDICATION: Left sided chest pain TECHNIQUE: frontal view of the chest was obtained. COMPARISON: Chest radiograph dated 09/27/[address] dated 12/29/2023 FINDINGS: No change in a left subclavian central venous port catheter with distal tip at the superior cavoatria l junction. Again seen are postoperative changes of a likely prior right upper lobectomy with volume loss in right hemithorax surgical clips in the upper lung zone and architectural distortion with ceph alad retraction of the right hilum and tenting of the right hemidiaphragm. Increased lucency in the u pper lungs consistent with underlying emphysema. There are couple calcified nodules in the left upper lung zone consistent with old granulomatous disease. No other airspace opacities, pulmonary edema, p leural effusion or pneumothorax. Heart size is normal. IMPRESSION: 1. Emphysema and postoperative change of prior right upper lobectomy. No acute cardiopulmonary diseas e. Reviewed, dictated and finalized at location [facility] [place] IMPRESSION: 1. Emphysema and postoperative change of prior right upper lobectomy. No acute cardiopulmonary disease.
--- OUTSIDE RECORDS SUMMARY | 2024-04-03 08:58 | XMS_ITS | Clinical Summary ---
Author Organization [facility] Address [address] [facility], [place] [address] Phone Care Team Providers Care Instrument Fitter Name Role Phone Britton Bean MD Primary Care Provider [phone] Allergies Active Allergy Reactions Criticality Noted Date [...] Comments Blood Pressure 142/86 02/20/2019 1:19 PM ACOUSTIC ENGINEER Pulse 75 02/20/2019 1:19 PM ACOUSTIC ENGINEER Temperature 36.4 C (97.5 F) 02/20/2019 1:19 PM ACOUSTIC ENGINEER Respiratory Rate 16 02/20/2019 1:19 PM ACOUSTIC ENGINEER Oxygen Saturation 98% 02/20/2019 1:19 PM ACOUSTIC ENGINEER Inhaled Oxygen Concentration - - Weight 65.3 kg (144 lb) 02/20/2019 1:19 PM ACOUSTIC ENGINEER Height 175.3 cm (5' 9 ) 02/20/2019 1:19 PM ACOUSTIC ENGINEER Body Mass Index 21.27 02/20/2019 1:19 PM ACOUSTIC ENGINEER Plan of Treatment Health Maintenance Due Date [...] Influenza Immunization (#1) 2023 SARS-COV-2 Immunization ( season) 2023 Respiratory Syncytial Virus (RSV) Immunization (Adult) (1 - 1-dose 75+ series) 2046 Meningococcal Immunization (ACWY) Aged Out No longer eligible based on patient's age to complete this topic Rotavirus Immunization Aged Out No lo nger eligible based on patient's age to complete this topic Insurance MEDICAID [place] Care Teams Instrument Fitter Relationship Specialty [place] [address] [place] [address] PCP - General Family Medicine 05/26/17
--- OUTSIDE RECORDS SUMMARY | 2024-04-03 08:58 | XMS_ITS | Encounter Summary ---
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 Not on file Not on file Not on fi le documented as of this encounter Plan of Treatment Not on file documented as of this encounter Visit Diagnoses Not on filedocumented in this encounter Care Teams Paleobotanist Relationship Specialty Start Date End Date Jim Álvarez MD [address] [place] [phone] PCP - General FAMILY PRACTICE 05/02/21 Izabella Farah MD [address] [place] [address] Consulting Physician CARDIOVASCULAR DISEASE 10/28/22 Kathy Marquez INSULATION PACKERRossyC [address] [facility] [place] [address] Nurse Practitioner Family 11/02/22 documented as of this encounter
--- OUTSIDE RECORDS SUMMARY | 2024-04-03 08:58 | XMS_ITS | Clinical Summary ---
Author Organization [facility] Address [facility] [place] [address] Care Team Providers Care Facility Examiner Name Role Phone Jim Álvarez MD Primary Care Provider Izabella Farah MD Unavailable Kathy Marquez APPLIANCE PAINTER AND REFINISHER-C Unavailable [phone] Allergies Active Allergy Reactions Criticality Noted Date [...] Department Care Team Description 01/10/2024 Transcribe Orders [facility] Pre Access Team [address] [place] [address] Charli Lua MD from Last [...] Start Date Job End Date works at [employer] Not on file Not on file Not on fi le Last Filed Vital Signs Vital Sign Reading Time Taken Comments Blood Pressure 135/80 12/03/2022 11:30 PM CDT Pulse 75 12/03/2022 11:30 PM CDT Temperature 36.6 C (97.8 F) 12/03/2022 11:37 PM CDT Respiratory Rate 12 12/03/2022 11:30 PM CDT [...] topic Insurance RAMIREZ RAMIREZ RAMIREZ Care Teams Facility Examiner Relationship Specialty Start Date End Date Jim Á[place]varez [place] [address] [place] [address] [place] [phone] PCP - General FAMILY PRACTICE 05/02/21 Izabella Farah MD [address] [place] [address] Consulting Physician CARDIOVASCULAR DISEASE 10/28/22 Kathy Marquez NP-C [address] [place] [address] Nurse Practitioner Family 11/02/22
--- NOTE | 2024-04-03 09:12 | ECG_ITS ---
Test Date: 2024-04-03 08:42:53 Measurements Intervals [place] Rate: 74 P: 80 WV: 161 QRS: 55 QRSD: 92 T: 48 QT: 359 QTc: 398 Interpretive Statements SINUS RHYTHM CANNOT R/O SEPTAL INFARCT, AGE INDETERMINATE ABNORMAL ECG Compared to ECG 09/27/2023 10:56:28 NO SIGNIFICANT CHANGE Electronically Signed On 04-03-2024 09:31:13 MANAGER ZONE by Toby Tomlin D.O.
--- NOTE | 2024-04-03 09:19 | ED_ITS ---
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 The pain is continuous and rated 9/10. Gets worse with deep breathing. -- Worsening of chronic shortness of breath no fever or chills.. Has chronic cough with mucoid expectoration. No hemoptysis. No mucopurulent sputum. MD complaint: chest pain Pertinent past history: other ( COPD) Onset (ago): week(s) ( 3 weeks) Timing of current episode: constant Prior episodes: No Onset: during rest Pain location: left chest Pain radiation: back Severity: severe Pain scale (0-10): 9 Quality: aching Relieving factors: nothing Exacerbating factors: inspiration Treatment prior to arrival: none Risk Factors Coronary artery disease risk factors: smoking history and hypertension Thoracic aortic dissection risk factors: none Related Data Home Medications ?Medication ?Instructions ?Recorded ?Confirmed ?Last Taken ?Type albuterol 90 mcg/actuation aerosol 90 mcg inhalation Q4-8H PRN 03/07/23 03/06/24 Unknown History inhaler Shortness Of Breath Or Wheezing fluticasone 250 mcg-salmeterol 50 1 inh inhalation Q12H 03/07/23 03/06/24 Unknown History mcg/dose blistr powdr for inhalation (Advair Diskus) hydrocodone 5 mg-acetaminophen 325 1 tablet PO Q6-8H 09/27/23 03/06/24 Unknown History mg tablet ipratropium 0.5 mg-albuterol 3 mg 3 ml inhalation PRN PRN SOB 09/27/23 03/06/24 Unknown History (2.5 mg base)/3 mL nebulization soln lidocaine 5 % topical patch 1 patch transdermal DAILY PRN Pain 09/27/23 03/06/24 Unknown History Allergies Allergy/AdvReac Type Severity Reaction Status Date / Time Penicillins Allergy Anaphylaxis Verified 04/03/24 09:06 rizatriptan Allergy Anaphylaxis Verified 04/03/24 09:06 Review of Systems 2 Review of Systems: All systems reviewed & are unremarkable except as noted in HPI and below Constitutional: Constitutional: Reports as per HPI and Reports no additional constitutional complaints Eyes: Eyes: Reports as per HPI and Reports no additional eye complaints ENT: Reports system reviewed and no additional complaints, except as documented and Reports as per HPI Cardiovascular: Cardiovascular: Reports as per HPI and Reports no additional cardiovascular complaints Respiratory: Respiratory: Reports as per HPI and Reports no additional respiratory complaints Comments: left chest pain Gastrointestinal: Gastrointestinal: Reports as per HPI and Reports no additional gastrointestinal complaints Genitourinary: Genitourinary: Reports no additional male genitourinary complaints and Reports as per HPI Musculoskeletal: Musculoskeletal: Reports no additional musculoskeletal complaints and Reports as per HPI Integumentary/Breasts: Skin/Breast: Reports system reviewed and no additional complaints, except as docu and Reports as per HPI Neurologic: Reports system reviewed and no additional complaints, except as documented and Reports as per HPI Psychiatric: Psychiatric: Reports no additional psychiatric complaints and Reports as per HPI Endocrine: Endocrine: Reports no additional endocrine complaints and Reports as per HPI Hematologic/Lymphatic: Hematologic/Lymphatic: Reports no additional hematologic/lymphatic complaints and Reports as per HPI Allergic/Immunologic: Allergic/Immunologic: Reports no additional allergic/immunologic complaints and Reports as per HPI [facility] Past Medical History Medical History (Updated 04/03/24 @ 10:56 by Junaid Steiner MD) Hypertension COPD (chronic obstructive pulmonary disease) Primary lung cancer Surgical History Surgical History (Updated 04/03/24 @ 09:45 by Junaid Steiner MD) S/P lobectomy of lung Social History Social History Smoking status: Former smoker Exam 2 Narrative: afebrile. Oxygen saturation of 99% on room air. Blood pressure 158/95. Const: General: ill appearing Orientation/consciousness: patient oriented x3 Limitations: no limitations HENMT: Head: normal to inspection Ears: external ears normal F neha/Nose/Sinus: Normal external nose present Face and sinus: normal facial exam Mouth: Yes Normal oral and palatal mucosa present Throat: posterior oropharynx normal Eyes: Conjunctivae: conjunctivae normal Pupils: Equal, round and reactive pupils present EOM: EOMs intact bilaterally Direct Ophthalmoscopy: no photophobia Neck: Neck: normal visual inspection, no lymphadenopathy and no meningeal signs Chest: Chest palpation & inspection: normal inspection of the chest Resp: Effort & Inspection: normal respiratory effort Other: Decreased breath sounds over the left upper lung. Cardio: Rate: regular rate Rhythm: regular rhythm GI: Auscultation: normal bowel sounds Rectal Exam: normal sphincter tone : General: Yes bladder normal to palpation and Yes no CVA tenderness Back/Spine/Pelvis: Back: no CVA tenderness Skin: General skin exam: normal color Rashes: no rashes Wounds: no wounds Neuro: General: patient oriented x3, moves all extremities, no meningeal signs, no focal motor deficits and CN's II-XI intact bilaterally Cranial nerves: Yes Nystagmus not present Speech: normal speech Gait exam (Neuro): Normal gait present Extrem: General: normal to inspection and no clubbing, cyanosis or edema Psych: Mental Status: mental status grossly normal Affect: Anxious affect present Course Course Emergency Course: left chest pain-- patient was noted to have a normal white cell count. Patient is afebrile. X-ray did not show any evidence of pneumonia. Patient had a negative D-dimer. Patient had normal troponins without any significant ST elevation. His chest pain appears to be secondary to pleurisy/chest wall pain Vital Signs Vital signs: Vital Signs Temperature 36.8 C 04/03/24 08:33 Pulse Rate 76 04/03/24 08:33 Respiratory Rate 15 04/03/24 08:33 Blood Pressure 158/95 H 04/03/24 08:33 Pulse Oximetry 100 04/03/24 08:33 Oxygen Delivery Room Air 04/03/24 08:33 Temperature 36.8 C 04/03/24 08:33 Pulse Rate 70 04/03/24 08:40 Respiratory Rate 15 04/03/24 08:33 Blood Pressure 158/95 H 04/03/24 08:33 Pulse Oximetry 99 04/03/24 08:35 Oxygen Delivery Room Air 04/03/24 08:35 MDM - Chest Pain MDM Narrative Medical decision making narrative: left chest wall pain Differential Diagnosis Differential diagnosis: Likely pneumothorax and unstable angina pectoris Medical Records Data Attestation: I reviewed the patient's medical records. Lab Data Attestation: I reviewed the patient's lab results. 04/03/24 09:56 04/03/24 09:56 Labs: Lab Results 04/03/24 04/03/24 Range/Units 09:47 09:56 WBC 7.4 (4.8-10.8) K/mm3 RBC 4.83 (4.70-6.10) M/mm3 Hgb 15.7 (14.0-18.0) g/dL Hct 45.3 (40.0-54.0) % MCV 93.8 (78.0-102.0) fL MCH 32.5 H (27.0-31.0) pg MCHC 34.7 (32-36) g/dL RDW 13.1 (11.6-14.4) % Plt Count 321 (150-420) K/mm3 MPV 10.0 (8.7-11.0) fl Immature Gran % (Auto) 0.3 H (0.0-0.0) % Neut % (Auto) 66.9 (50.0-70.0) % Lymph % (Auto) 20.2 (18.0-42.0) % Leon % (Auto) 7.7 (2.0-11.0) % Eos % (Auto) 4.2 (1.0-6.0) % Baso % (Auto) 0.7 (0.0-1.0) % Lymph # (Auto) 1.49 (1.10-4.50) K/mm3 Leon # (Auto) 0.57 (0.10-0.90) K/mm3 Eos # (Auto) 0.31 (0.02-0.50) K/mm3 Baso # (Auto) 0.05 (0.00-0.10) K/mm3 Abs Immat Gran (auto) 0.02 H (0.00-0.00) K/mm3 Absolute Neuts (auto) 4.92 (1.70-7.20) K/mm3 Absolute Nucleated RBC 0.00 (0.00-0.00) K/mm3 Nucleated RBC % 0.0 (0-0.0) % PT 9.8 (9.50-12.1) Seconds INR 0.9 APTT 27.8 (23.9-30.70) Sec D-Dimer 0.19 (0.19-0.50) mg/L Sodium 141 (136-145) mmol/L Potassium 4.5 (3.5-5.1) mmol/L Chloride 104 (98-108) mmol/L Carbon Dioxide 26 (21-32) mmol/L Anion Gap 11 (4-12) mmol/L BUN 10 (7-18) mg/dL Creatinine 0.91 (0.70-1.30) mg/dL Estim Creat Clear Calc 80 ml/min Estimated GFR > 60 (59 - ) Glucose 105 H (70-99) mg/dL Calculated Osmolality 291 (285-295) mOsm/kg Lactic Acid 1.4 (0.4-2.0) mmol/L Calcium 9.3 (8.5-10.1) mg/dL Magnesium 2.1 (1.8-2.4) mg/dL Total Bilirubin 0.3 (0.00-1.00) mg/dL AST 18 (15-37) U/L ALT 32 (16-63) U/L Alkaline Phosphatase 73 (46-116) U/L Troponin I 13.2 (0.00-60.4) ng/L NT-Pro-B Natriuret Pep 36 (0-125) pg/mL Total Protein 7.7 (6.4-8.2) g/dL Albumin 4.1 (3.4-5.0) g/dL Lipase 23 (16-77) U/L Urine Color Light yellow (Yellow) Urine Appearance Clear (Clear) Urine pH 6.0 (5.0-8.0) Ur Specific [place] 1.010 (1.010-1.020) Urine Protein Negative (Negative) Urine Glucose (UA) Negative (Negative) Urine Ketones Negative (Negative) Ur Blood (Man) Negative (Negative) Urine Nitrate Negative (Negative) Urine Bilirubin Negative (Negative) Urine Urobilinogen 0.2 (0.2-1.0) mg/dL Leukocyte Esterase Rfl Negative (Negative) [place]/UL Influenza A (RT-PCR) Negative (Negative) Influenza B (RT-PCR) Negative (Negative) RSV (RT-PCR) Negative (Negative) SARS-CoV-2 RNA (RT-PCR) Negative (Negative) ECG Data EKG #1: ECG completion date: 04/03/24 ECG completion time: 08:42 Interpretation: normal sinus rhythm. questionable ST elevation in anteroseptal leads with T inversion. Discharge Plan Discharge Clinical Impression: Atypical chest pain Patient Disposition: Home, Self-Care Condition: Stable Instructions: Antibiotic Form, Chest Wall Pain (ED) Patient Language: Turkmen Prescriptions: No Action fluticasone propion-salmeterol [Advair Diskus] 250-50 mcg/dose Blister With Device 1 inh INHALATION Q12H albuterol 90 mcg/actuation Aerosol 90 mcg INHALATION Q4-8H PRN (Reason: Shortness Of Breath Or Wheezing) ipratropium-albuterol 0.5 mg-3 mg(2.5 mg base)/3 mL solution for nebulization 3 ml INHALATION PRN PRN (Reason: SOB) hydrocodone-acetaminophen 5-325 mg tablet 1 tablet PO Q6-8H lidocaine 5 % adhesive patch,medicated 1 patch transdermal DAILY PRN (Reason: Pain) Follow-up/Referrals: SY WYLIE [Other] Time of Disposition: 10:56
--- OUTSIDE RECORDS SUMMARY | 2024-04-03 09:52 | XMS_ITS | Clinical Summary ---
Author Organization [facility] Address [address] [facility], [place] [address] Phone Care Team Providers Care Skein Dyer Name Role Phone Britton Bean MD Primary Care Provider [phone] Allergies Active Allergy Reactions Criticality Noted Date [...] Comments Blood Pressure 142/86 02/20/2019 1:19 PM DIRECTOR DATA ANALYTICS Pulse 75 02/20/2019 1:19 PM DIRECTOR DATA ANALYTICS Temperature 36.4 C (97.5 F) 02/20/2019 1:19 PM DIRECTOR DATA ANALYTICS Respiratory Rate 16 02/20/2019 1:19 PM DIRECTOR DATA ANALYTICS Oxygen Saturation 98% 02/20/2019 1:19 PM DIRECTOR DATA ANALYTICS Inhaled Oxygen Concentration - - Weight 65.3 kg (144 lb) 02/20/2019 1:19 PM DIRECTOR DATA ANALYTICS Height 175.3 cm (5' 9 ) 02/20/2019 1:19 PM DIRECTOR DATA ANALYTICS Body Mass Index 21.27 02/20/2019 1:19 PM DIRECTOR DATA ANALYTICS Plan of Treatment Health Maintenance Due Date [...] age to complete this topic Insurance MEDICAID [place] Care Teams Skein Dyer Relationship Specialty [place] [address] [place] [address] PCP - General Family Medicine 05/26/17
--- OUTSIDE RECORDS SUMMARY | 2024-04-03 09:52 | XMS_ITS | Encounter Summary ---
Author Organization [facility] Address [address] [place] [address] Care Team Providers Care Oceanographer Physical Name Role Phone Jim Álvarez MD Primary Care Provider [phone] Izabella Farah MD Unavailable Kathy Marquez ALTITUDE CHAMBER TECHNICIAN-C Unavailable [phone] Encounter Details Date Type Department Care Team (Late st Contact Info) Description 11/02/2022 Abstract [facility] [address] [place] [id number] Abstract, Doc Pccl Social History Tobacco Use [...] Start Date Job End Date works at [employer] Not on file Not on file Not on fi le documented as of this encounter Plan of Treatment Not on file documented as of this encounter Visit Diagnoses Not on filedocumented in this encounter Care Teams Oceanographer Physical Relationship Specialty Start Date End Date Jim Álvarez MD [address] [place] [address] PCP - General FAMILY PRACTICE 05/02/21 Izabella Farah MD [address] [place] [address] Consulting Physician CARDIOVASCULAR DISEASE 10/28/22 Kathy Marquez ALTITUDE CHAMBER TECHNICIANRossyC [address] [facility] [place] [address] Nurse Practitioner Family 11/02/22 documented as of this encounter
--- OUTSIDE RECORDS SUMMARY | 2024-04-03 09:52 | XMS_ITS | Clinical Summary ---
Author Organization [facility] Address [facility] [place] [address] Care Team Providers Care Trench Digging Machine Operator Name Role Phone Jim Álvarez MD Primary Care Provider Izabella Farah MD Unavailable Kathy Marquez STUDENT SUPPORT ADVISOR-C Unavailable [phone] Allergies Active Allergy Reactions Criticality Noted Date [...] Department Care Team Description 01/10/2024 Transcribe Orders [facility] Pre Access Team [address] [place] [address] Charli Lua MD from Last [...] Start Date Job End Date works at [employer] Not on file Not on file Not [...] topic Insurance RAMIREZ RAMIREZ RAMIREZ Care Teams Trench Digging Machine Operator Relationship Specialty Start Date End Date Jim Á[place]varez [place] [address] [place] [address] [place] [phone] PCP - General FAMILY PRACTICE 05/02/21 Izabella Farah MD [address] [place] [address] Consulting Physician CARDIOVASCULAR DISEASE 10/28/22 Kathy Marquez NP-C [address] [place] [address] Nurse Practitioner Family 11/02/22
[2024-04-03] MEDS: ONDANSETRON INJ 4 MG/2 ML VIAL IV PUSH (10:05)
[2024-04-03] MEDS: HYDROmorphone HCL INJ (*CRX) 2 MG/ML VIAL 0.5 MG IV PUSH (10:05)
[2024-04-03 10:06] LABS: Add Urine Microscopic? NO; Appearance Urine Clear (Clear); Bilirubin Urine Negative (Negative); Blood Urine Negative (Negative); Color Urine Light Yellow (Yellow); Glucose Urine UA Negative (Negative); Ketones Urine Negative (Negative); Leukocyte Esterase Ur Negative LEU/UL (Negative); Nitrate Urine Negative (Negative); Protein Urine Negative (Negative); Urobilinogen Urine 0.2 mg/dL (0.2-1.0)
[2024-04-03 10:08] LABS: Basophils Absolute Auto 0.05 K/mm3 (0.00-0.10); Basophils Percent Auto 0.7 % (0.0-1.0); Eosinophils Absolute Auto 0.31 K/mm3 (0.02-0.50); Eosinophils Percent Auto 4.2 % (1.0-6.0); Hematocrit 45.3 % (40.0-54.0); Hemoglobin 15.7 g/dL (14.0-18.0); Immature Granulocyte Absolute 0.02 K/mm3 (0.00-0.00); Immature Granulocyte Percent A 0.3 % (0.0-0.0); Lymphocytes Absolute Auto 1.49 K/mm3 (1.10-4.50); Lymphocytes Percent Auto 20.2 % (18.0-42.0); Mean Corpuscular HGB Conc 34.7 g/dL (32-36); Mean Corpuscular Hemoglobin 32.5 pg (27.0-31.0); Mean Corpuscular Volume 93.8 fL (78.0-102.0); Monocytes Absolute Auto 0.57 K/mm3 (0.10-0.90); Monocytes Percent Auto 7.7 % (2.0-11.0); Neutrophils Absolute Auto 4.92 K/mm3 (1.70-7.20); Neutrophils Percent Auto 66.9 % (50.0-70.0); Platelet Count Result 321 K/mm3 (150-420); Red Blood Count 4.83 M/mm3 (4.70-6.10); Red Cell Distribution Width 13.1 % (11.6-14.4); White Blood Count 7.4 K/mm3 (4.8-10.8)
[2024-04-03 10:18] LABS: D Dimer 0.19 mg/L (0.19-0.50); INR 0.9; Partial Thromboplastin Time 27.8 Sec (23.9-30.70); Prothrombin Time 9.8 Seconds (9.50-12.1)
[2024-04-03 10:25] LABS: Lactic Acid Reflex 1.4 mmol/L (0.4-2.0)
[2024-04-03 10:29] LABS: Alanine Aminotransferase 32 U/L (16-63); Albumin Level 4.1 g/dL (3.4-5.0); Alkaline Phosphatase 73 U/L (46-116); Anion Gap 11 mmol/L (4-12); Aspartate Amino Transferase 18 U/L (15-37); Bilirubin,Total 0.3 mg/dL (0.00-1.00); Blood Urea Nitrogen 10 mg/dL (7-18); Calcium 9.3 mg/dL (8.5-10.1); Carbon Dioxide 26 mmol/L (21-32); Chloride 104 mmol/L (98-108); Estimated CRCL calculation 80 ml/min; Estimated Glomerular Filt Rate > 60; Glucose 105 mg/dL (70-99); Lipase 23 U/L (16-77); Magnesium 2.1 mg/dL (1.8-2.4); NT Pro B Type Natriuretic Pept 36 pg/mL (0-125); Osmolality Calculated 291 mOsm/kg (285-295); Potassium 4.5 mmol/L (3.5-5.1); Sodium 141 mmol/L (136-145); Total Protein 7.7 g/dL (6.4-8.2); Troponin I 13.2 ng/L (0.00-60.4)
[2024-04-03 10:47] LABS: SARS-CoV-2 RNA PCR Negative (Negative)
[2024-04-03 10:48] LABS: Influenza A QL RT-PCR Negative (Negative); Influenza B QL RT-PCR Negative (Negative); RSV RNA, RT-PCR Negative (Negative)
== END 2024-04-03 11:20 | disposition home or self-care (01) ==
PROVIDERS: Emergency Provider Internal Medicine Critical Care Medicine
DX: R07.89 Other chest pain (principal); J44.9 Chronic obstructive pulmonary disease, unspecified; Z85.118 Personal history of other malignant neoplasm of bronchus and lung; Z87.891 Personal history of nicotine dependence; Z20.822 Contact with and (suspected) exposure to COVID-19
CPT/HCPCS: 36415; 71045; 80053; 81003; 83605; 83690; 83735; 83880; 84484; 85025; 85380; 85610; 85730; 87637; 93005; 96374; 96375; 99284; J1171; J2405

== ENCOUNTER 2024-04-22 12:24 | Outpatient (CLI) | payer OTHER, SELFPAY ==
[2024-04-22 12:45] VITALS: BP 132/77; PULSE 92; RESP 16; TEMP 36.4; O2SAT 95; BMI 25.2
[2024-04-22] MEDS: HEPARIN SODIUM LOCK FLUSH 500 UNITS/5 ML SYRINGE IV PUSH (12:48)
--- NOTE | 2024-04-22 13:02 | PC.NURSE ---
Tolerated monthly port flush well. SEE MAR/patient care notes.
--- OUTSIDE RECORDS SUMMARY | 2024-04-22 14:43 | XMS_ITS | Clinical Summary ---
Author Organization [facility] Address [facility] [place] [address] Care Team Providers Care Head Start Assistant Teacher Name Role Phone Jim Álvarez MD Primary Care Provider Izabella Farah MD Unavailable Kathy Marquez PRINT INSPECTOR-C Unavailable [phone] Allergies Active Allergy Reactions Criticality Noted Date [...] Active Active Problems No known active problems Family History Medical History Relation Comments Heart [...] Start Date Job End Date works at [employer] Not on file Not on file Not [...] topic Insurance RAMIREZ RAMIREZ RAMIREZ Care Teams Head Start Assistant Teacher Relationship Specialty Start Date End Date Jim Álvarez MD [address] [place] [address] [place] [address] PCP - General FAMILY PRACTICE 05/02/21 Izabella Farah MD [address] [place] [address] Consulting Physician CARDIOVASCULAR DISEASE 10/28/22 Kathy Marquez NP-C [address] [place] [address] [place] [address] Nurse Practitioner Family 11/02/22
--- OUTSIDE RECORDS SUMMARY | 2024-04-22 14:43 | XMS_ITS | Clinical Summary ---
Author Organization [facility] Address [address] [facility], [place] [address] Phone Care Team Providers Care Scanning Coordinator Name Role Phone Britton Bean MD Primary Care Provider [phone] Allergies Active Allergy Reactions Criticality Noted Date [...] Comments Blood Pressure 142/86 02/20/2019 1:19 PM PARTY COORDINATOR Pulse 75 02/20/2019 1:19 PM PARTY COORDINATOR Temperature 36.4 C (97.5 F) 02/20/2019 1:19 PM PARTY COORDINATOR Respiratory Rate 16 02/20/2019 1:19 PM PARTY COORDINATOR Oxygen Saturation 98% 02/20/2019 1:19 PM PARTY COORDINATOR Inhaled Oxygen Concentration - - Weight 65.3 kg (144 lb) 02/20/2019 1:19 PM PARTY COORDINATOR Height 175.3 cm (5' 9 ) 02/20/2019 1:19 PM PARTY COORDINATOR Body Mass Index 21.27 02/20/2019 1:19 PM PARTY COORDINATOR Plan of Treatment Health Maintenance Due Date [...] age to complete this topic Insurance MEDICAID [place] Care Teams Scanning Coordinator Relationship Specialty [place] [address] [place] [address] PCP - General Family Medicine 05/26/17
--- OUTSIDE RECORDS SUMMARY | 2024-04-22 14:43 | XMS_ITS | Encounter Summary ---
Author Organization [facility] Address [address] [place] [address] Care Team Providers Care Furniture Mover Helper Name Role Phone Jim Álvarez MD Primary Care Provider [phone] Izabella Farah MD Unavailable Kathy Marquez STERILIZATION TECHNICIAN-C Unavailable [phone] Encounter Details Date Type Department Care Team (Late st Contact Info) Description 11/02/2022 Abstract [facility] [address] [place] [phone] Abstract, Doc Pccl Social History Tobacco Use [...] Start Date Job End Date works at [employer] Not on file Not on file Not on fi le documented as of this encounter Plan of Treatment Not on file documented as of this encounter Visit Diagnoses Not on filedocumented in this encounter Care Teams Furniture Mover Helper Relationship Specialty Start Date End Date Jim Álvarez MD [address] [place] [address] PCP - General FAMILY PRACTICE 05/02/21 Izabella Farah MD [address] [place] [address] Consulting Physician CARDIOVASCULAR DISEASE 10/28/22 Kathy Marquez STERILIZATION TECHNICIANRossyC [address] [facility] [place] [address] Nurse Practitioner Family 11/02/22 documented as of this encounter
== END 2024-04-22 12:25 | disposition home or self-care (01) ==
PROVIDERS: Visit Provider Internal Medicine Hematology
DX: Z45.2 Encounter for adjustment and management of vascular access device (principal); C34.90 Malignant neoplasm of unspecified part of unspecified bronchus or lung
CPT/HCPCS: 96523

== ENCOUNTER 2024-04-30 09:35 | Outpatient (CLI) | payer OTHER, SELFPAY ==
[2024-04-30 09:39] VITALS: BMI 25.9
[2024-04-30 10:00] LABS: Basophils Absolute Auto 0.05 K/mm3 (0.00-0.10); Basophils Percent Auto 0.6 % (0.0-1.0); Eosinophils Absolute Auto 0.35 K/mm3 (0.02-0.50); Eosinophils Percent Auto 4.3 % (1.0-6.0); Hematocrit 45.6 % (40.0-54.0); Hemoglobin 15.8 g/dL (14.0-18.0); Immature Granulocyte Absolute 0.04 K/mm3 (0.00-0.00); Immature Granulocyte Percent A 0.5 % (0.0-0.0); Lymphocytes Percent Auto 22.3 % (18.0-42.0); Mean Corpuscular HGB Conc 34.6 g/dL (32-36); Mean Corpuscular Volume 92.5 fL (78.0-102.0); Monocytes Percent Auto 8.7 % (2.0-11.0); Neutrophils Absolute Auto 5.12 K/mm3 (1.70-7.20); Neutrophils Percent Auto 63.6 % (50.0-70.0); Platelet Count Result 357 K/mm3 (150-420); Red Blood Count 4.93 M/mm3 (4.70-6.10); Red Cell Distribution Width 12.8 % (11.6-14.4); White Blood Count 8.1 K/mm3 (4.8-10.8)
[2024-04-30] MEDS: PEMBROLIZUMAB 200 MG in SODIUM CHLORIDE 0.9% IV 92 ML IVPB (10:20)
[2024-04-30 10:26] LABS: Alanine Aminotransferase 34 U/L (16-63); Albumin Level 4.2 g/dL (3.4-5.0); Alkaline Phosphatase 69 U/L (46-116); Anion Gap 10 mmol/L (4-12); Aspartate Amino Transferase 18 U/L (15-37); Bilirubin,Total 0.5 mg/dL (0.00-1.00); Blood Urea Nitrogen 10 mg/dL (7-18); Calcium 9.3 mg/dL (8.5-10.1); Carbon Dioxide 26 mmol/L (21-32); Chloride 101 mmol/L (98-108); Estimated CRCL calculation 81 ml/min; Estimated Glomerular Filt Rate > 60; Glucose 119 mg/dL (70-99); Osmolality Calculated 284 mOsm/kg (285-295); Potassium 4.2 mmol/L (3.5-5.1); Sodium 137 mmol/L (136-145)
[2024-04-30 10:34] VITALS: BP 129/79; PULSE 78; RESP 16; TEMP 36.7; O2SAT 98
--- OUTSIDE RECORDS SUMMARY | 2024-04-30 10:50 | XMS_ITS | Clinical Summary ---
Author Organization [facility] Address [facility] [place] [address] Care Team Providers Care Technical Engineer Name Role Phone Jim Álvarez MD Primary Care Provider Izabella Farah MD Unavailable Kathy Marquez ELECTRONIC PREPRESS OPERATOR-C Unavailable [phone] Allergies Active Allergy Reactions Criticality Noted Date [...] Start Date Job End Date works at [employer] Not on file Not on file Not [...] topic Insurance RAMIREZ RAMIREZ RAMIREZ Care Teams Technical Engineer Relationship Specialty Start Date End Date Jim Álvarez MD [address] [place] [address] [place] [address] PCP - General FAMILY PRACTICE 05/02/21 Izabella Farah MD [address] [place] [address] Consulting Physician CARDIOVASCULAR DISEASE 10/28/22 Kathy Marquez NP-C [address] [place] [address] [place] [address] Nurse Practitioner Family 11/02/22
--- OUTSIDE RECORDS SUMMARY | 2024-04-30 10:50 | XMS_ITS | Clinical Summary ---
Author Organization [facility] Address [address] [facility] [place] [address] Phone Care Team Providers Care Merchandise Examiner Name Role Phone Britton Bean MD Primary Care Provider [phone] Allergies Active Allergy Reactions Criticality Noted Date [...] Comments Blood Pressure 142/86 02/20/2019 1:19 PM DIESEL MECHANIC FARM Pulse 75 02/20/2019 1:19 PM DIESEL MECHANIC FARM Temperature 36.4 C (97.5 F) 02/20/2019 1:19 PM DIESEL MECHANIC FARM Respiratory Rate 16 02/20/2019 1:19 PM DIESEL MECHANIC FARM Oxygen Saturation 98% 02/20/2019 1:19 PM DIESEL MECHANIC FARM Inhaled Oxygen Concentration - - Weight 65.3 kg (144 lb) 02/20/2019 1:19 PM DIESEL MECHANIC FARM Height 175.3 cm (5' 9 ) 02/20/2019 1:19 PM DIESEL MECHANIC FARM Body Mass Index 21.27 02/20/2019 1:19 PM DIESEL MECHANIC FARM Plan of Treatment Health Maintenance Due Date Last Done Comments Hepatitis C Virus (HCV) Screening 1971 TdaP Immunization 1971 Hepatitis B Immunization (1 of 3 - [...] age to complete this topic Insurance MEDICAID RAMIREZ Care Teams Merchandise Examiner Relationship Specialty [place] [address] [address] [facility] [address] PCP - General Family Medicine 05/26/17
--- OUTSIDE RECORDS SUMMARY | 2024-04-30 10:50 | XMS_ITS | Encounter Summary ---
Author Organization [facility] Address [address] [place] [address] Care Team Providers Care Program Director Group Work Name Role Phone Jim Álvarez MD Primary Care Provider [phone] Izabella Farah MD Unavailable Kathy Marquez LIGHTING FIXTURES DECORATOR-C Unavailable [phone] Encounter Details Date Type Department Care Team (Late st Contact Info) Description 11/02/2022 Abstract [facility] [address] [place] [phone] Abstract, Doc Pccl Social History Tobacco Use [...] Start Date Job End Date works at [employer] Not on file Not on file Not on fi le documented as of this encounter Plan of Treatment Not on file documented as of this encounter Visit Diagnoses Not on filedocumented in this encounter Care Teams Program Director Group Work Relationship Specialty Start Date End Date Jim Álvarez MD [address] [place] [address] PCP - General FAMILY PRACTICE 05/02/21 Izabella Farah MD [address] [place] [address] Consulting Physician CARDIOVASCULAR DISEASE 10/28/22 Kathy Marquez LIGHTING FIXTURES DECORATORRossyC [address] [facility] [place] [address] Nurse Practitioner Family 11/02/22 documented as of this encounter
[2024-04-30] MEDS: HEPARIN SODIUM LOCK FLUSH 500 UNITS/5 ML SYRINGE IV PUSH (11:15)
[2024-04-30 11:17] VITALS: BP 129/74; PULSE 78; RESP 14; O2SAT 98
[2024-05-02 01:48] LABS: Cortisol Random 15.8 mcg/dL
== END 2024-04-30 09:36 | disposition home or self-care (01) ==
PROVIDERS: Visit Provider Internal Medicine Hematology
DX: Z51.11 Encounter for antineoplastic chemotherapy (principal); C34.11 Malignant neoplasm of upper lobe, right bronchus or lung
CPT/HCPCS: 36415; 80053; 82533; 84443; 85025; 96413; J9271

== ENCOUNTER 2024-05-21 11:18 | Outpatient (CLI) | payer OTHER, SELFPAY ==
[2024-05-21 11:32] LABS: Hematocrit 43.9 % (40.0-54.0); Hemoglobin 15.1 g/dL (14.0-18.0); Mean Corpuscular HGB Conc 34.4 g/dL (32-36); Mean Corpuscular Hemoglobin 32.1 pg (27.0-31.0); Mean Corpuscular Volume 93.2 fL (78.0-102.0); Mean Platelet Volume 9.8 fl (8.7-11.0); Platelet Count Result 356 K/mm3 (150-420); Red Blood Count 4.71 M/mm3 (4.70-6.10); Red Cell Distribution Width 12.7 % (11.6-14.4); White Blood Count 8.2 K/mm3 (4.8-10.8)
[2024-05-21 11:35] LABS: Basophils Absolute Auto 0.07 K/mm3 (0.00-0.10); Basophils Percent Auto 0.9 % (0.0-1.0); Eosinophils Absolute Auto 0.63 K/mm3 (0.02-0.50); Eosinophils Percent Auto 7.7 % (1.0-6.0); Immature Granulocyte Absolute 0.03 K/mm3 (0.00-0.00); Immature Granulocyte Percent A 0.4 % (0.0-0.0); Monocytes Absolute Auto 0.63 K/mm3 (0.10-0.90); Monocytes Percent Auto 7.7 % (2.0-11.0); Neutrophils Absolute Auto 4.58 K/mm3 (1.70-7.20); Neutrophils Percent Auto 56.3 % (50.0-70.0)
[2024-05-21 12:05] LABS: Alanine Aminotransferase 34 U/L (16-63); Albumin Level 4.1 g/dL (3.4-5.0); Alkaline Phosphatase 77 U/L (46-116); Anion Gap 8 mmol/L (4-12); Aspartate Amino Transferase 21 U/L (15-37); Bilirubin,Total 0.4 mg/dL (0.00-1.00); Blood Urea Nitrogen 10 mg/dL (7-18); Calcium 9.6 mg/dL (8.5-10.1); Carbon Dioxide 30 mmol/L (21-32); Chloride 102 mmol/L (98-108); Estimated Glomerular Filt Rate > 60; Glucose 94 mg/dL (70-99); Osmolality Calculated 289 mOsm/kg (285-295); Sodium 140 mmol/L (136-145); Total Protein 7.5 g/dL (6.4-8.2)
--- OUTSIDE RECORDS SUMMARY | 2024-05-21 12:38 | XMS_ITS | Clinical Summary ---
Author Organization [facility] Address [facility] [place] [address] Care Team Providers Care Mine Environmental Engineer Name Role Phone Jim Álvarez MD Primary Care Provider [phone] Izabella Farah MD Unavailable Kathy Marquez CLAY WORKER-C Unavailable [phone] Allergies Active Allergy Reactions Criticality Noted Date [...] Start Date Job End Date works at [employer] Not on file Not on file Not [...] 5 Years) and At-Risk Patients (6 to 49 Years) (1 of 2 - PCV) 1977 Hepatitis C 1989 DTaP, Tdap and Td Vaccines ( 1 - Tdap) 1990 Hepatitis B Vaccines (1 of 3 - 19+ 3-dose series) 1990 Zoster Vaccines (1 of 2) 1990 Meningococcal B Vaccine Aged Out No l onger eligible based on patient's age to complete this topic Meningococcal Vaccine Aged Out No gladys misha eligible based on patient's age to complete this topic RSV Immunizations Under 20 Months Aged Out No longer eligible based on patient's age to complete this topic Insurance RMAIREZ RAMIREZ RAMIREZ Care Teams Mine Environmental Engineer Relationship Specialty Start Date End Date Jim Álvarez MD [address] [place] [phone] PCP - General FAMILY PRACTICE 05/02/21 Izabella Farah MD [address] [place] [address] Consulting Physician CARDIOVASCULAR DISEASE 10/28/22 Kathy Marquez NP-C [address] [facility] [place] [address] Nurse Practitioner Family 11/02/22
--- OUTSIDE RECORDS SUMMARY | 2024-05-21 12:38 | XMS_ITS | Encounter Summary ---
Author Organization [facility] Address [facility] [place] [address] Care Team Providers Care Delinquency Prevention Officer Name Role Phone Jim Álvarez MD Primary Care Provider [phone] Izabella Farah MD Unavailable Kathy Marquez BROADCASTING EQUIPMENT MECHANIC-C Unavailable [phone] Encounter Details Date Type Department Care Team (Late st Contact Info) Description 11/02/2022 Abstract [facility] [address] [place] [phone] Abstract, Doc Pccl Social History Tobacco Use [...] 6:47 AM CDT Sexual Orientation Straight 10/26/2022 6 :47 AM CDT Occupation Industry Job Start Date Job End Date works at [employer] Not on file Not on file Not on fi le documented as of this encounter Functional Status * Calculated C-SSRS Risk Score (Lifetime/Recent) Answer Date of Assessment Author Status No Risk Indicated 11/02/2022 5:57 PM CDT Eddie Hassan, RN Active * [place] Suicide Severity Rating Scale (Screener/Recent Self-Report) Question Answer Date of Assessment Author Status 1. Wish to be (Past 1 Month) No 11/02/2022 5:57 PM CDT Nica Hassan RN Act bill 2. Non-Specific Active Suicidal Thoughts (Past 1 Month) No 11/02/2022 5:57 PM CDT Nica Hassan, RN Act bill 6. Suicidal Behavior (Lifetime) No 11/02/2022 5:57 PM CDT Nica Hassan, RN Act bill documented as of this encounter Plan of Treatment Not on file documented as of this encounter Visit Diagnoses Not on filedocumented in this encounter Care Teams Delinquency Prevention Officer Relationship Specialty Start Date End Date Jim Álvarez MD [address] [place] [address] PCP - General FAMILY PRACTICE 05/02/21 Izabella Farah MD [address] [place] [address] Consulting Physician CARDIOVASCULAR DISEASE 10/28/22 Kathy Marquez, BROADCASTING EQUIPMENT MECHANIC-C [address] [place] [address] Nurse Practitioner Family 11/02/22 documented as of this encounter
[2024-05-21 13:37] VITALS: BMI 25.2
[2024-05-21 13:39] VITALS: BP 135/83; PULSE 92; RESP 16; TEMP 36.6; O2SAT 95
[2024-05-21] MEDS: PEMBROLIZUMAB 200 MG in SODIUM CHLORIDE 0.9% IV 92 ML IVPB (14:05)
[2024-05-21 14:29] VITALS: BP 129/78; PULSE 74; RESP 14; TEMP 36.4; O2SAT 97
[2024-05-21] MEDS: HEPARIN SODIUM LOCK FLUSH 500 UNITS/5 ML SYRINGE IV PUSH (14:35)
--- NOTE | 2024-05-21 14:41 | PC.NURSE ---
Patient tolerated Pembrolizumab well. SEE MAR/patient care notes.
== END 2024-05-21 11:19 | disposition home or self-care (01) ==
PROVIDERS: Visit Provider Internal Medicine Hematology
DX: Z51.11 Encounter for antineoplastic chemotherapy (principal); C34.11 Malignant neoplasm of upper lobe, right bronchus or lung
CPT/HCPCS: 36415; 80053; 85025; 85027; 96413; J9271

== ENCOUNTER 2024-06-17 14:04 | Outpatient (CLI) | payer OTHER, SELFPAY ==
--- OUTSIDE RECORDS SUMMARY | 2024-06-17 14:12 | XMS_ITS | Clinical Summary ---
Author Organization [facility] Address [facility] [place] [address] Care Team Providers Care Hims Coder Name Role Phone Jim Álvarez MD Primary Care Provider Izabella Farah MD Unavailable Kathy Marquez AVIATION PROJECT MANAGER-C Unavailable [phone] Allergies Active Allergy Reactions Criticality Noted Date [...] Start Date Job End Date works at [employer] Not on file Not on file Not [...] Annual Physical 1974 COVID-19 Vaccine (#1) 1976 Hepatitis C 1989 DTaP, Tdap and Td Vaccines ( 1 - Tdap) 1990 Hepatitis B Vaccines (1 of 3 - 19+ 3-dose series) 1990 Pneumococcal Vaccine: 50+ Ye ars (1 of 2 - PCV) 1990 Zoster Vaccines (1 of 2) 1990 [...] topic Insurance RAMIREZ RAMIREZ RAMIREZ Care Teams Hims Coder Relationship Specialty Start Date End Date Jim Álvarez MD [address] [place] [address] PCP - General FAMILY PRACTICE 05/02/21 Izabella Farah MD [address] [place] [address] Consulting Physician CARDIOVASCULAR DISEASE 10/28/22 Kathy Marquez NP-C [address] [facility] [place] [address] Nurse Practitioner Family 11/02/22
--- OUTSIDE RECORDS SUMMARY | 2024-06-17 14:12 | XMS_ITS | Encounter Summary ---
Author Organization [facility] Address [facility] [place] [address] Care Team Providers Care Air Marshal Name Role Phone Jim Álvarez MD Primary Care Provider [phone] Izabella Fraah MD Unavailable Kathy Marquez SKINNER PELTS-C Unavailable [phone] Encounter Details Date Type Department Care Team (Late st Contact Info) Description 11/02/2022 Abstract [facility] [address] [place] [address] Abstract, Doc Pccl Social History Tobacco Use [...] Start Date Job End Date works at [employer] Not on file Not on file Not on fi le documented as of this encounter Functional Status * Calculated C-SSRS Risk Score (Lifetime/Recent) Answer Date of Assessment Author Status No Risk Indicated 11/02/2022 5:57 PM CDT Eddie Hassan, RN Active * [place] Suicide Severity Rating Scale (Screener/Recent Self-Report) Question [...] on filedocumented in this encounter Care Teams Air Marshal Relationship Specialty Start Date End Date Jim Álvarez MD [address] [place] [address] PCP - General FAMILY PRACTICE 05/02/21 Izabella Farah MD [address] [place] [address] Consulting Physician CARDIOVASCULAR DISEASE 10/28/22 Kathy Marquez, SKINNER PELTS-C [address] [place] [address] Nurse Practitioner Family 11/02/22 documented as of this encounter
--- OUTSIDE RECORDS SUMMARY | 2024-06-17 14:12 | XMS_ITS | Clinical Summary ---
Author Organization [facility] Address [address] [facility] [place] [address] Phone Care Team Providers Care Chief Green Officer Name Role Phone Britton Bean MD Primary Care Provider [phone] Allergies Active Allergy Reactions Criticality Noted Date [...] Comments Blood Pressure 142/86 02/20/2019 1:19 PM CHILD DAY CARE PROVIDER Pulse 75 02/20/2019 1:19 PM CHILD DAY CARE PROVIDER Temperature 36.4 C (97.5 F) 02/20/2019 1:19 PM CHILD DAY CARE PROVIDER Respiratory Rate 16 02/20/2019 1:19 PM CHILD DAY CARE PROVIDER Oxygen Saturation 98% 02/20/2019 1:19 PM CHILD DAY CARE PROVIDER Inhaled Oxygen Concentration - - Weight 65.3 kg (144 lb) 02/20/2019 1:19 PM CHILD DAY CARE PROVIDER Height 175.3 cm (5' 9 ) 02/20/2019 1:19 PM CHILD DAY CARE PROVIDER Body Mass Index 21.27 02/20/2019 1:19 PM CHILD DAY CARE PROVIDER Plan of Treatment Health Maintenance Due Date [...] this topic Insurance MEDICAID RAMIREZ Care Teams Chief Green Officer Relationship Specialty [place] [address] [address] [facility] [place] [address] PCP - General Family Medicine 05/26/17
[2024-06-17 14:20] LABS: Basophils Absolute Auto 0.06 K/mm3 (0.00-0.10); Basophils Percent Auto 0.8 % (0.0-1.0); Eosinophils Absolute Auto 0.51 K/mm3 (0.02-0.50); Eosinophils Percent Auto 6.4 % (1.0-6.0); Hemoglobin 13.2 g/dL (14.0-18.0); Immature Granulocyte Absolute 0.03 K/mm3 (0.00-0.00); Immature Granulocyte Percent A 0.4 % (0.0-0.0); Lymphocytes Absolute Auto 2.04 K/mm3 (1.10-4.50); Lymphocytes Percent Auto 25.6 % (18.0-42.0); Mean Corpuscular HGB Conc 34.7 g/dL (32-36); Mean Corpuscular Hemoglobin 32.2 pg (27.0-31.0); Mean Corpuscular Volume 92.7 fL (78.0-102.0); Mean Platelet Volume 9.7 fl (8.7-11.0); Monocytes Absolute Auto 0.77 K/mm3 (0.10-0.90); Monocytes Percent Auto 9.6 % (2.0-11.0); Neutrophils Absolute Auto 4.57 K/mm3 (1.70-7.20); Neutrophils Percent Auto 57.2 % (50.0-70.0); Platelet Count Result 323 K/mm3 (150-420); Red Cell Distribution Width 12.9 % (11.6-14.4)
[2024-06-17 15:37] LABS: Alanine Aminotransferase 29 U/L (16-63); Albumin Level 3.8 g/dL (3.4-5.0); Alkaline Phosphatase 55 U/L (46-116); Anion Gap 7 mmol/L (4-12); Aspartate Amino Transferase 16 U/L (15-37); Bilirubin,Total 0.6 mg/dL (0.00-1.00); Blood Urea Nitrogen 12 mg/dL (7-18); Calcium 8.7 mg/dL (8.5-10.1); Carbon Dioxide 28 mmol/L (21-32); Chloride 100 mmol/L (98-108); Estimated Glomerular Filt Rate > 60; Free T4 Free Thyroxine 0.98 ng/dL (0.76-1.46); Glucose 74 mg/dL (70-99); Osmolality Calculated 278 mOsm/kg (285-295); Potassium 4.2 mmol/L (3.5-5.1); Sodium 135 mmol/L (136-145); Thyroid Stimulating Hormone 0.84 uIU/mL (0.36-3.74); Total Protein 6.5 g/dL (6.4-8.2)
[2024-06-18 09:09] LABS: Cortisol Random 2.6 mcg/dL
== END 2024-06-17 14:05 | disposition home or self-care (01) ==
LOC: CHSLAB 14:09
PROVIDERS: Visit Provider Internal Medicine Hematology
DX: C34.90 Malignant neoplasm of unspecified part of unspecified bronchus or lung (principal)
CPT/HCPCS: 36415; 80053; 82533; 84439; 84443; 85025

== ENCOUNTER 2024-06-18 09:09 | Outpatient (CLI) | payer OTHER, SELFPAY ==
--- OUTSIDE RECORDS SUMMARY | 2024-06-18 09:21 | XMS_ITS | Clinical Summary ---
Author Organization [facility] Address [facility] [place] [address] Care Team Providers Care Cut Off Operator Scorer Name Role Phone Jim Álvarez MD Primary Care Provider [phone] Izabella Farah MD Unavailable Kathy Marquez CRUTCHING CONTRACTOR-C Unavailable [phone] Allergies Active Allergy Reactions Criticality Noted Date [...] Start Date Job End Date works at [employer] Not on file Not on file Not [...] topic Insurance RAMIREZ RAMIREZ RAMIREZ Care Teams Cut Off Operator Scorer Relationship Specialty Start Date End Date Jim Álvarez MD [address] [place] [address] PCP - General FAMILY PRACTICE 05/02/21 Izabella Farah MD [address] [place] [address] Consulting Physician CARDIOVASCULAR DISEASE 10/28/22 Kathy Marquez NP-C [address] [facility] [place] [address] Nurse Practitioner Family 11/02/22
--- OUTSIDE RECORDS SUMMARY | 2024-06-18 09:21 | XMS_ITS | Clinical Summary ---
Author Organization [facility] Address [address] [facility] [place] [address] Phone Care Team Providers Care Paint Tinter Name Role Phone Britton Bean MD Primary Care Provider [phone] Allergies Active Allergy Reactions Criticality Noted Date [...] Comments Blood Pressure 142/86 02/20/2019 1:19 PM EQUIPMENT WASHER Pulse 75 02/20/2019 1:19 PM EQUIPMENT WASHER Temperature 36.4 C (97.5 F) 02/20/2019 1:19 PM EQUIPMENT WASHER Respiratory Rate 16 02/20/2019 1:19 PM EQUIPMENT WASHER Oxygen Saturation 98% 02/20/2019 1:19 PM EQUIPMENT WASHER Inhaled Oxygen Concentration - - Weight 65.3 kg (144 lb) 02/20/2019 1:19 PM EQUIPMENT WASHER Height 175.3 cm (5' 9 ) 02/20/2019 1:19 PM EQUIPMENT WASHER Body Mass Index 21.27 02/20/2019 1:19 PM EQUIPMENT WASHER Plan of Treatment Health Maintenance Due Date [...] this topic Insurance MEDICAID RAMIREZ Care Teams Paint Tinter Relationship Specialty [place] [address] [address] [place] [address] PCP - General Family Medicine 05/26/17
--- OUTSIDE RECORDS SUMMARY | 2024-06-18 09:21 | XMS_ITS | Encounter Summary ---
Author Organization [facility] Address [facility] [place] [address] Care Team Providers Care Auto Mechanic Apprentice Name Role Phone Jim Álvarez MD Primary Care Provider Izabella Farah MD Unavailable Kathy Marquez HOME HEALTH PROVIDER-C Unavailable [phone] Encounter Details Date Type Department Care Team (Late st Contact Info) Description 11/02/2022 Abstract [facility] [address] [place] [address] Abstract, Doc Pccl Social History Tobacco Use [...] Start Date Job End Date works at [employer] Not on file Not on file Not on fi le documented as of this encounter Functional Status * Calculated C-SSRS Risk Score (Lifetime/Recent) Answer Date of Assessment Author Status No Risk Indicated 11/02/2022 5:57 PM CDT Eddie Hassan, RN Active * [place] Suicide Severity Rating Scale (Screener/Recent Self-Report) Question [...] on filedocumented in this encounter Care Teams Auto Mechanic Apprentice Relationship Specialty Start Date End Date Jim Álvarez MD [address] [place] [address] PCP - General FAMILY PRACTICE 05/02/21 Izabella Farah MD [address] [place] [address] Consulting Physician CARDIOVASCULAR DISEASE 10/28/22 Kathy Marquez, HOME HEALTH PROVIDER-C [address] [place] [address] Nurse Practitioner Family 11/02/22 documented as of this encounter
[2024-06-18 09:43] VITALS: BMI 26.3
--- NOTE | 2024-06-18 09:48 | PC.NURSE ---
0928 call to pharmacy , notified of pt arrival and ready for treatment. awaiting medication. call barba in reach . declined warm blanket .
[2024-06-18] MEDS: PEMBROLIZUMAB 200 MG in SODIUM CHLORIDE 0.9% IV 92 ML IVPB (10:12)
[2024-06-18] MEDS: HEPARIN SODIUM LOCK FLUSH 500 UNITS/5 ML SYRINGE IV PUSH (10:53)
[2024-06-18 10:55] VITALS: BP 116/75; PULSE 72; RESP 20; TEMP 36.2; O2SAT 97
== END 2024-06-18 11:00 | disposition home or self-care (01) ==
PROVIDERS: Visit Provider Internal Medicine Hematology
DX: Z51.11 Encounter for antineoplastic chemotherapy (principal); C34.11 Malignant neoplasm of upper lobe, right bronchus or lung
CPT/HCPCS: 96413; J9271

== ENCOUNTER 2024-06-24 08:06 | Outpatient (CLI) | payer OTHER, SELFPAY ==
--- NOTE | ~2024-06-24 | CT_ITS ---
CLINICAL INDICATION: 54-year-old gentleman with a personal history of lung cancer diagnosed in 2022 p resents for follow-up imaging. COMPARISON: 12/29/2023 and 05/08/2023. TECHNIQUE: An enhanced CT of the abdomen and pelvis was performed utilizing multislice spiral Segterra (InsideTracker) ue reconstructed at 5 mm slice thickness. Coronal and sagittal reconstructions were performed. This CT examination was performed utilizing dose reduction techniques. DLP: 597 mGy-cm FINDINGS/OBSERVATIONS: Lung: Biapical scarring and subpleural bleb formation, right greater than left, unchanged from prior. Postoperative change within the right superior mediastinum just above the level of the right mainstem bronchus. Post radiation change within the right upper lobe the medial margin of the right hemithorax, also unc hanged. 6 mm calcified granuloma within the left upper lobe, also unchanged. The remainder of the lungs are clear. The heart is of normal size, without pericardial effusion. Left subclavian port catheter identified with its tip in the proximal right atrium. Mediastinum: Redemonstration of multiple nonpathologically enlarged or morphologically suspicious right-sided retr oclavicular lymph nodes. Stable AP window lymph nodes measuring 5 mm in short axis dimension (axial series, image 43). Stable right paratracheal lymph node, measuring 5.8 mm in short axis dimension (axial series, image 4 3). No additional mediastinal lymph nodes nodes are present. Multiple nonpathologically enlarged or morphologically this is lymph nodes within the bilateral axill a, a nonspecific finding and unchanged from prior. Soft tissues of the chest: Unremarkable. Bones of the chest: No acute fracture. No lytic or blastic lesions are identified. Liver: The liver enhances homogeneously and is not enlarged. Gallbladder and biliary system: The gallbladder is only minimally distended, but otherwise unremarkable. Pancreas: The pancreas enhances homogeneously, without ductal dilatation. Spleen: Punctate calcifications identified within the splenic parenchyma, suggesting prior granulomat ous disease. The remainder of the spleen otherwise enhances homogeneously, and is not enlarged. Kidneys: The bilateral kidneys enhance symmetrically without hydronephrosis or renal calculi. Adrenal glands: Unremarkable. Gastrointestinal tract: Small hiatal hernia is present. Colonic diverticulosis without surrounding inflammatory change. Trace mural thickening within the distal colon, likely secondary to peristalsis rather than intrinsic disease. Appendix: The air-filled appendix is of normal caliber (axial series, images 185 through 198). Vasculature: Trace calcified atherosclerotic disease within the infrarenal abdominal aorta. No aneurysmal dilatation. Lymph nodes: Scattered nonpathologically enlarged lymph nodes within the root of the mesentery and deep in the pel vis, a nonspecific finding, and unchanged from prior. Pelvic structures: The bladder is minimally distended and otherwise unremarkable. The prostate gland is not enlarged, and contains bulky calcifications. Body wall and musculoskeletal: Small fat-containing umbilical hernia. Age-appropriate degenerative disease within the lumbosacral spine with facet arthropathy and trace di sc space narrowing. IMPRESSION: Postoperative and posttreatment change within the right hemithorax. Findings within the chest, abdomen and pelvis which demonstrate a positive response to treatment with out further progression of disease. Reviewed, dictated and finalized at location A. IMPRESSION: Postoperative and posttreatment change within the right hemithorax. Findings within the chest, abdomen and pelvis which demonstrate a positive resp onse to treatment without further progression of disease.
--- OUTSIDE RECORDS SUMMARY | 2024-06-24 08:13 | XMS_ITS | Clinical Summary ---
Author Organization [facility] Address [address] [facility] [place] [address] Phone Care Team Providers Care Slp Name Role Phone Britton Bean MD Primary Care Provider [phone] Allergies Active Allergy Reactions Criticality Noted Date [...] Comments Blood Pressure 142/86 02/20/2019 1:19 PM INTERNAL GRINDER SET UP OPERATOR Pulse 75 02/20/2019 1:19 PM INTERNAL GRINDER SET UP OPERATOR Temperature 36.4 C (97.5 F) 02/20/2019 1:19 PM INTERNAL GRINDER SET UP OPERATOR Respiratory Rate 16 02/20/2019 1:19 PM INTERNAL GRINDER SET UP OPERATOR Oxygen Saturation 98% 02/20/2019 1:19 PM INTERNAL GRINDER SET UP OPERATOR Inhaled Oxygen Concentration - - Weight 65.3 kg (144 lb) 02/20/2019 1:19 PM INTERNAL GRINDER SET UP OPERATOR Height 175.3 cm (5' 9 ) 02/20/2019 1:19 PM INTERNAL GRINDER SET UP OPERATOR Body Mass Index 21.27 02/20/2019 1:19 PM INTERNAL GRINDER SET UP OPERATOR Plan of Treatment Health Maintenance Due Date [...] this topic Insurance MEDICAID RAMIREZ Care Teams Slp Relationship Specialty [place] [address] [facility] [place] [address] PCP - General Family Medicine 05/26/17
--- OUTSIDE RECORDS SUMMARY | 2024-06-24 08:13 | XMS_ITS | Clinical Summary ---
Author Organization [facility] Address [facility] [place] [address] Care Team Providers Care Ship'S Carpenter Name Role Phone Jim Álvarez MD Primary Care Provider Izabella Farah MD Unavailable Kathy Marquez MULE OPERATOR-C Unavailable [phone] Allergies Active Allergy Reactions Criticality Noted Date [...] Start Date Job End Date works at [employer] Not on file Not on file Not [...] topic Insurance RAMIREZ RAMIREZ RAMIREZ Care Teams Ship'S Carpenter Relationship Specialty Start Date End Date Jim Álvarez MD [address] [place] [address] PCP - General FAMILY PRACTICE 05/02/21 Izabella Farah MD [address] [place] [address] Consulting Physician CARDIOVASCULAR DISEASE 10/28/22 Kathy Marquez NP-C [address] [place] [address] Nurse Practitioner Family 11/02/22
--- OUTSIDE RECORDS SUMMARY | 2024-06-24 08:13 | XMS_ITS | Encounter Summary ---
Author Organization [facility] Address [facility] [place] [address] Care Team Providers Care Machine Feeder Raw Stock Name Role Phone Jim Álvarez MD Primary Care Provider Izabella Farah MD Unavailable Kathy Marquez IT SALES REPRESENTATIVE-C Unavailable [phone] Encounter Details Date Type Department Care Team (Late st Contact Info) Description 11/02/2022 Abstract [facility] [address] [place] [phone] Abstract, Doc Pccl Social History Tobacco Use [...] Start Date Job End Date works at [employer] Not on file Not on file Not on fi le documented as of this encounter Functional Status * Calculated C-SSRS Risk Score (Lifetime/Recent) Answer Date of Assessment Author Status No Risk Indicated 11/02/2022 5:57 PM CDT Eddie Hassan, RN Active * [place] Suicide Severity Rating Scale (Screener/Recent Self-Report) Question [...] on filedocumented in this encounter Care Teams Machine Feeder Raw Stock Relationship Specialty Start Date End Date Jim Álvarez MD [address] [place] [address] PCP - General FAMILY PRACTICE 05/02/21 Izabella Farah MD [address] [place] [address] Consulting Physician CARDIOVASCULAR DISEASE 10/28/22 Kathy Marquez, IT SALES REPRESENTATIVE-C [address] [place] [address] Nurse Practitioner Family 11/02/22 documented as of this encounter
[2024-06-24 08:30] LABS: Estimated Glomerular Filt Rate > 60
== END 2024-06-24 08:07 | disposition home or self-care (01) ==
LOC: CHSIMG 08:08
PROVIDERS: Visit Provider Internal Medicine Hematology
DX: C34.90 Malignant neoplasm of unspecified part of unspecified bronchus or lung (principal); Z98.890 Other specified postprocedural states
CPT/HCPCS: 71260; 74177; Q9967

== ENCOUNTER 2024-07-02 09:24 | Emergency (ER) | payer OTHER, SELFPAY ==
--- NOTE | ~2024-07-02 | XR_ITS ---
XR chest 2V 07/02/2024 09:54 Indication: Cough. COPD. History of lung cancer. Procedure: 2 view chest Comparison: Comparison to multiple prior studies sequentially, with oldest reviewed study dated 04/03. Findings: Portacatheter tip in the SVC. There are surgical changes of prior right upper lobectomy. Ca lcified granuloma left apex. No focal air space disease, pulmonary edema, pleural effusion or suspect ed pneumothorax. Impression: 1: No acute cardiopulmonary disease. Reviewed, dictated and finalized at location A. Impression: 1: No acute cardiopulmonary disease.
[2024-07-02 09:24] VITALS: BP 125/94; PULSE 103; RESP 20; TEMP 36.3; O2SAT 98
--- OUTSIDE RECORDS SUMMARY | 2024-07-02 09:34 | XMS_ITS | Clinical Summary ---
[facility] Address [address] [facility], [place] [address] Phone Care Team Providers Care Transit Department Clerk Name Role Phone Britton Bean MD Primary Care Provider [phone] Allergies Active Allergy Reactions Criticality Noted Date [...] Comments Blood Pressure 142/86 02/20/2019 1:19 PM APPAREL PATTERNMAKER Pulse 75 02/20/2019 1:19 PM APPAREL PATTERNMAKER Temperature 36.4 C (97.5 F) 02/20/2019 1:19 PM APPAREL PATTERNMAKER Respiratory Rate 16 02/20/2019 1:19 PM APPAREL PATTERNMAKER Oxygen Saturation 98% 02/20/2019 1:19 PM APPAREL PATTERNMAKER Inhaled Oxygen Concentration - - Weight 65.3 kg (144 lb) 02/20/2019 1:19 PM APPAREL PATTERNMAKER Height 175.3 cm (5' 9) 02/20/2019 1:19 PM APPAREL PATTERNMAKER Body Mass Index 21.27 02/20/2019 1:19 PM APPAREL PATTERNMAKER Plan of Treatment Health Maintenance Due Date [...] this topic Insurance MEDICAID [place] Care Teams Transit Department Clerk Relationship Specialty [place] [address] [facility] [place] [address] PCP - General Family Medicine 05/26/17
[2024-07-02 09:37] VITALS: O2SAT 98
--- NOTE | 2024-07-02 09:42 | ED_ITS ---
HPI - URI/Sore Throat General Chief Complaint: Upper Respiratory Infection Stated Complaint: cough Time Seen by Provider: 07/02/24 09:33 Source: patient Mode of arrival: ambulatory Limitations: no limitations History of Present Illness HPI Narrative: 54 years old white male, history of COPD, right lung cancer stage II non cell carcinoma status post right lung surgery, chemotherapy March 2023. Currently patient is not on any chemotherapy, started immunotherapy 2 weeks ago. Quit smoking last year. Patient came to the ED today because of nasal congestion, postnasal discharge and coughing up clear sputum over the last 2 days. He denies any fever, chills, nausea, vomiting. Related Data Home Medications ?Medication ?Instructions ?Recorded ?Confirmed ?Last Taken ?Type albuterol 90 mcg/actuation aerosol 90 mcg inhalation Q4-8H PRN 03/07/23 06/18/24 Unknown History inhaler Shortness Of Breath Or Wheezing hydrocodone 5 mg-acetaminophen 325 1 tablet PO Q6-8H 09/27/23 06/18/24 Unknown History mg tablet amlodipine 2.5 mg tablet 5 mg PO DAILY 06/18/24 06/18/24 Unknown History duloxetine 20 mg capsule,delayed 20 mg PO DAILY 06/18/24 06/18/24 Unknown History release umeclidinium 62.5 mcg/actuation 1 inh inhalation DAILY 06/18/24 06/18/24 Unknown History blister powder for inhalation (Incruse Ellipta) Allergies Allergy/AdvReac Type Severity Reaction Status Date / Time gabapentin Allergy Mild Unknown Verified 07/02/24 09:55 Penicillins Allergy Anaphylaxis Verified 07/02/24 09:55 rizatriptan Allergy Anaphylaxis Verified 07/02/24 09:55 Review of Systems Review of Systems: All systems reviewed & are unremarkable except as noted in HPI and below PMFSH Past Medical History Medical History Hypertension COPD (chronic obstructive pulmonary disease) Primary lung cancer Surgical History Surgical History S/P lobectomy of lung Social History Social History Smoking status: Former smoker Exam Narrative: General appearance: Well-developed, well-nourished Skin: Normal color Head: Normocephalic, nontraumatic Eyes: Clear conjunctiva ENT: Oropharynx normal, ears normal, Nasal congestion, runny nose Neck: Supple, nontender Chest and respiratory: Airway patent, no respiratory distress, no accessory muscle use few scattered wheezing bilaterally Heart: Regular rate/rhythm Abdomen: Soft, nontender, no organomegaly, quiet bowel sounds Musculoskeletal: Normal range of motion, nontender back Neurologic: Alert and oriented ?3, PLANT TAXONOMY TEACHER is normal as tested, no gross motor deficit Course Vital Signs Vital signs: Vital Signs Temperature 36.3 C L 07/02/24 09:24 Pulse Rate 103 H 07/02/24 09:24 Respiratory Rate 20 07/02/24 09:24 Blood Pressure 125/94 H 07/02/24 09:24 Pulse Oximetry 98 07/02/24 09:24 Oxygen Delivery Room Air 07/02/24 09:24 Temperature 36.3 C L 07/02/24 09:24 Pulse Rate 103 H 07/02/24 09:24 Respiratory Rate 20 07/02/24 09:24 Blood Pressure 125/94 H 07/02/24 09:24 Pulse Oximetry 98 07/02/24 09:37 Oxygen Delivery Room Air 07/02/24 09:37 MDM - URI/Sore Throat MDM Narrative Medical decision making narrative: patient came with upper respiratory viral infection like symptoms Vital signs showing heart rate of 103 otherwise within normal limit Physical examination consistent with anxious, restless patient, runny nose, few scattered wheezing bilaterally. Differential diagnosis include upper respiratory viral infection, seasonal allergy related symptoms, Workup today showed negative for COVID flu RSV, chest x-ray showed no acute abnormalities Diagnosis upper respiratory infection, COPD exacerbation, Because patient is immune compromised, discharged on Levaquin, prednisone and Flonase. The pt was discharged to home.the pt,s condition upon discharge was fair,education was provided to the pt in reference to the final impression,discharge study results,treatment,prognosis and need for follow up . Differential Diagnosis Differential diagnosis: Likely other ( as above) Medical Records Attestation: I reviewed the patient's medical records. Lab Data Attestation: I reviewed the patient's lab results. Labs: Lab Results 07/02/24 Range/Units 09:45 Influenza A (RT-PCR) Negative (Negative) Influenza B (RT-PCR) Negative (Negative) RSV (RT-PCR) Negative (Negative) SARS-CoV-2 RNA (RT-PCR) Negative (Negative) Imaging Data Radiologist's impression: Impressions Chest X-Ray 07/02/24 10:10 Impression: 1: No acute cardiopulmonary disease. Critical Care Time Critical Care Time Critical Care Time: No Discharge Plan Discharge Clinical Impression: Acute upper respiratory infection, COPD exacerbation Patient Disposition: Home Condition: Stable Instructions: Antibiotic Form, Upper Respiratory Infection (ED), COPD (Chronic Obstructive Pulmonary Disease) (ED) Additional Instructions: Return if symptoms are worsening , call your family physician for appointment, take Tylenol as as needed for aches and pain, continue home medications. Patient Language: Nepalese Prescriptions: New levofloxacin 750 mg tablet 750 mg PO DAILY Qty: 7 5RF prednisone 20 mg tablet 40 mg PO DAILY 5 Days Qty: 10 0RF fluticasone propionate [Flonase Allergy Relief] 50 mcg/actuation spray,suspension 2 spray intranasal DAILY Qty: 36.4 0RF Rx Instructions: administer into each nostril No Action albuterol 90 mcg/actuation Aerosol 90 mcg INHALATION Q4-8H PRN (Reason: Shortness Of Breath Or Wheezing) hydrocodone-acetaminophen 5-325 mg tablet 1 tablet PO Q6-8H amlodipine 2.5 mg tablet 5 mg PO DAILY duloxetine 20 mg capsule,delayed release(DR/EC) 20 mg PO DAILY Incruse Ellipta 62.5 mcg/actuation blister with device 1 inh INHALATION DAILY Follow-up/Referrals: UNKNOWN,DOCTOR [Non-Staff] -
[2024-07-02 10:02] VITALS: PULSE 80; RESP 18; O2SAT 97
[2024-07-02] MEDS: IPRATROPIUM 0.5 MG/ALBUTEROL SULFATE 2.5 MG AMPUL.NEB 3 ML INHALATION (10:02)
--- OUTSIDE RECORDS SUMMARY | 2024-07-02 10:11 | XMS_ITS | Clinical Summary ---
Author Organization [facility] Address [address] [facility], [place] [address] Phone Care Team Providers Care Joiners Supervisor Name Role Phone Britton Bean MD Primary Care Provider [phone] Allergies Active Allergy Reactions Criticality Noted Date [...] Comments Blood Pressure 142/86 02/20/2019 1:19 PM PECAN PICKER Pulse 75 02/20/2019 1:19 PM PECAN PICKER Temperature 36.4 C (97.5 F) 02/20/2019 1:19 PM PECAN PICKER Respiratory Rate 16 02/20/2019 1:19 PM PECAN PICKER Oxygen Saturation 98% 02/20/2019 1:19 PM PECAN PICKER Inhaled Oxygen Concentration - - Weight 65.3 kg (144 lb) 02/20/2019 1:19 PM PECAN PICKER Height 175.3 cm (5' 9) 02/20/2019 1:19 PM PECAN PICKER Body Mass Index 21.27 02/20/2019 1:19 PM PECAN PICKER Plan of Treatment Health Maintenance Due Date [...] this topic Insurance MEDICAID [place] Care Teams Joiners Supervisor Relationship Specialty [place] [id number] [place] [address] PCP - General Family Medicine 05/26/17
[2024-07-02 10:31] LABS: Influenza A QL RT-PCR Negative (Negative); Influenza B QL RT-PCR Negative (Negative); RSV RNA, RT-PCR Negative (Negative); SARS-CoV-2 RNA PCR Negative (Negative)
[2024-07-02 11:05] VITALS: BP 128/94; PULSE 96; RESP 18; TEMP 37.3; O2SAT 99
== END 2024-07-02 11:14 | disposition home or self-care (01) ==
PROVIDERS: Emergency Provider Emergency Medicine
DX: J06.9 Acute upper respiratory infection, unspecified (principal); J44.1 Chronic obstructive pulmonary disease with (acute) exacerbation; I10 Essential (primary) hypertension; Z85.118 Personal history of other malignant neoplasm of bronchus and lung; Z87.891 Personal history of nicotine dependence; Z20.822 Contact with and (suspected) exposure to COVID-19
CPT/HCPCS: 71046; 87637; 94640; 99283

== ENCOUNTER 2024-07-23 09:19 | Outpatient (CLI) | payer OTHER, SELFPAY ==
[2024-07-23 09:43] LABS: Hematocrit 40.9 % (40.0-54.0); Hemoglobin 13.9 g/dL (14.0-18.0); Mean Corpuscular Hemoglobin 32.6 pg (27.0-31.0); Mean Platelet Volume 9.8 fl (8.7-11.0); Platelet Count Result 330 K/mm3 (150-420); Red Blood Count 4.26 M/mm3 (4.70-6.10); Red Cell Distribution Width 13.1 % (11.6-14.4); White Blood Count 8.5 K/mm3 (4.8-10.8)
[2024-07-23 09:48] VITALS: BP 110/70; PULSE 80; RESP 16; TEMP 36.6; O2SAT 98; BMI 27.1
[2024-07-23 09:55] LABS: Alanine Aminotransferase 31 U/L (6-50); Albumin Level 4.1 g/dL (3.5-5.1); Alkaline Phosphatase 56 U/L (38-126); Anion Gap 4 mmol/L (4-12); Aspartate Amino Transferase 30 U/L (17-59); Bilirubin,Total 0.5 mg/dL (0.2-1.3); Blood Urea Nitrogen 14 mg/dL (9-20); Calcium 8.7 mg/dL (8.4-10.2); Carbon Dioxide 28 mmol/L (22-30); Chloride 104 mmol/L (98-107); Estimated CRCL calculation 87 ml/min; Estimated Glomerular Filt Rate > 60; Glucose 102 mg/dL (65-110); Osmolality Calculated 282 mOsm/kg (285-295); Potassium 4.5 mmol/L (3.4-5.0); Sodium 136 mmol/L (137-145); Total Protein 6.8 g/dL (6.3-8.2)
--- OUTSIDE RECORDS SUMMARY | 2024-07-23 10:11 | XMS_ITS | Clinical Summary ---
Author Organization [facility] Address [address] [facility], [place] [address] Phone Care Team Providers Care Filling Station Equipment Mechanic Name Role Phone Britton Bean MD Primary Care Provider [phone] Allergies Active Allergy Reactions Criticality Noted Date [...] Comments Blood Pressure 142/86 02/20/2019 1:19 PM BUSINESS PLANNING DIRECTOR Pulse 75 02/20/2019 1:19 PM BUSINESS PLANNING DIRECTOR Temperature 36.4 C (97.5 F) 02/20/2019 1:19 PM BUSINESS PLANNING DIRECTOR Respiratory Rate 16 02/20/2019 1:19 PM BUSINESS PLANNING DIRECTOR Oxygen Saturation 98% 02/20/2019 1:19 PM BUSINESS PLANNING DIRECTOR Inhaled Oxygen Concentration - - Weight 65.3 kg (144 lb) 02/20/2019 1:19 PM BUSINESS PLANNING DIRECTOR Height 175.3 cm (5' 9) 02/20/2019 1:19 PM BUSINESS PLANNING DIRECTOR Body Mass Index 21.27 02/20/2019 1:19 PM BUSINESS PLANNING DIRECTOR Plan of Treatment Health Maintenance Due Date Last Done Comments Hepatitis C Virus (HCV) Screening 1971 TdaP Immunization 1971 Hepatitis B Immunization (1 of 3 - 19+ 3-dose series) 1990 Pneumococcal Immunization (5 0+ years) (1 of 2 - PCV) 1990 Cologuard 2016 Colonoscopy 2016 Colorectal Cancer Screening 2016 Immunochemical Fecal Occult Blood 2016 Zoster Immunization (1 of 2) 2021 SARS-COV-2 Immunization ( - 2023- season) 2023 Influenza Immunization (Seas on Ended) 2024 Respiratory Syncytial Virus (RSV) Immunization (Adult) (1 - 1-dose 75+ series) 2046 Human Papillomavirus (HPV) Immunization Aged Out No longer eligible b ased on patient's age to complete this topic Meningococcal Immunization (ACWY) Aged Out No longer eligible based on patient's age to complete this topic Rotavirus Immunization Aged Out No lo nger eligible based on patient's age to complete this topic Insurance MEDICAID [place] Care Teams Filling Station Equipment Mechanic Relationship Specialty [place] [address] [place] [address] PCP - General Family Medicine 05/26/17
[2024-07-23] MEDS: PEMBROLIZUMAB 200 MG in SODIUM CHLORIDE 0.9% IV 92 ML IVPB (10:17)
[2024-07-23] MEDS: HEPARIN SODIUM LOCK FLUSH 500 UNITS/5 ML SYRINGE IV PUSH (10:46)
[2024-07-23 11:06] VITALS: BP 115/70; PULSE 78; RESP 16; O2SAT 97
--- NOTE | 2024-07-23 11:07 | PC.NURSE ---
Tolerated Pembrolizumab treatment infusion well. SEE MAR/patient care notes.
== END 2024-07-23 09:20 | disposition home or self-care (01) ==
PROVIDERS: Visit Provider Internal Medicine Hematology
DX: Z51.11 Encounter for antineoplastic chemotherapy (principal); C34.11 Malignant neoplasm of upper lobe, right bronchus or lung
CPT/HCPCS: 36415; 80053; 85027; 96413; J9271

== ENCOUNTER 2024-08-15 09:14 | Outpatient (CLI) | payer OTHER, SELFPAY ==
--- OUTSIDE RECORDS SUMMARY | 2024-08-15 09:30 | XMS_ITS | Clinical Summary ---
Author Organization [facility] Address [address] [facility], [place] [address] Phone Care Team Providers Care Armoured Car Escort Name Role Phone Britton Bean MD Primary Care Provider [phone] Allergies Active Allergy Reactions Criticality Noted Date [...] Comments Blood Pressure 142/86 02/20/2019 1:19 PM SURGICAL ATTENDANT Pulse 75 02/20/2019 1:19 PM SURGICAL ATTENDANT Temperature 36.4 C (97.5 F) 02/20/2019 1:19 PM SURGICAL ATTENDANT Respiratory Rate 16 02/20/2019 1:19 PM SURGICAL ATTENDANT Oxygen Saturation 98% 02/20/2019 1:19 PM SURGICAL ATTENDANT Inhaled Oxygen Concentration - - Weight 65.3 kg (144 lb) 02/20/2019 1:19 PM SURGICAL ATTENDANT Height 175.3 cm (5' 9) 02/20/2019 1:19 PM SURGICAL ATTENDANT Body Mass Index 21.27 02/20/2019 1:19 PM SURGICAL ATTENDANT Plan of Treatment Health Maintenance Due Date [...] ( - 2023- season) 2023 Influenza Immunization (#1) 2024 Respiratory Syncytial Virus (RSV) Immunization (Adult) [...] age to complete this topic Insurance MEDICAID [place] Care Teams Armoured Car Escort Relationship Specialty [place] [address] [place] [address] PCP - General Family Medicine 05/26/17
[2024-08-15 09:34] LABS: Hematocrit 44.5 % (40.0-54.0); Hemoglobin 15.5 g/dL (14.0-18.0); Immature Granulocyte Percent A 0.3 % (0.0-0.0); Lymphocytes Absolute Auto 2.01 K/mm3 (1.10-4.50); Mean Corpuscular HGB Conc 34.8 g/dL (32-36); Mean Corpuscular Hemoglobin 32.6 pg (27.0-31.0); Mean Corpuscular Volume 93.5 fL (78.0-102.0); Nucleated Red Blood Cells Absolute Auto 0.00 K/mm3 (0.00-0.00); Nucleated Red Blood Cells Perc 0.0 % (0-0.0); Platelet Count Result 414 K/mm3 (150-420); Red Blood Count 4.76 M/mm3 (4.70-6.10); White Blood Count 9.2 K/mm3 (4.8-10.8)
[2024-08-15 10:50] VITALS: BP 139/88; PULSE 78; RESP 16; TEMP 36.6; O2SAT 98; BMI 25.2
[2024-08-15 10:52] LABS: Alanine Aminotransferase 26 U/L (6-50); Albumin Level 4.6 g/dL (3.5-5.1); Alkaline Phosphatase 54 U/L (38-126); Anion Gap 4 mmol/L (4-12); Aspartate Amino Transferase 29 U/L (17-59); Bilirubin,Total 0.9 mg/dL (0.2-1.3); Blood Urea Nitrogen 13 mg/dL (9-20); Calcium 9.1 mg/dL (8.4-10.2); Carbon Dioxide 27 mmol/L (22-30); Chloride 107 mmol/L (98-107); Estimated Glomerular Filt Rate > 60; Glucose 99 mg/dL (65-110); Osmolality Calculated 286 mOsm/kg (285-295); Potassium 4.2 mmol/L (3.4-5.0); Sodium 138 mmol/L (137-145); Total Protein 7.4 g/dL (6.3-8.2)
[2024-08-15] MEDS: PEMBROLIZUMAB 200 MG in SODIUM CHLORIDE 0.9% IV 100 ML IVPB (11:00)
[2024-08-15 11:40] LABS: Thyroid Stimulating Hormone 1.390 uIU/mL (0.465-4.680)
[2024-08-15] MEDS: HEPARIN SODIUM LOCK FLUSH 500 UNITS/5 ML SYRINGE IV PUSH (11:41)
--- NOTE | 2024-08-15 11:41 | PC.NURSE ---
Tolerated Pembrolizumab infusion well. SEE MAR/patient care notes.
[2024-08-15 11:44] VITALS: BP 130/89; PULSE 76; RESP 14; O2SAT 98
== END 2024-08-15 09:15 | disposition home or self-care (01) ==
PROVIDERS: Visit Provider Internal Medicine Hematology
DX: C34.11 Malignant neoplasm of upper lobe, right bronchus or lung (principal)
CPT/HCPCS: 36415; 80053; 84443; 85025; 96413; J9271

== ENCOUNTER 2024-09-05 10:50 | Outpatient (CLI) | payer OTHER, SELFPAY ==
--- OUTSIDE RECORDS SUMMARY | 2024-09-05 10:56 | XMS_ITS | Clinical Summary ---
Author Organization [facility] Address [address] [facility], [place] [address] Phone Care Team Providers Care Special Assets Officer Name Role Phone Britton Bean MD Primary Care Provider Allergies Active Allergy Reactions Criticality Noted Date [...] Comments Blood Pressure 142/86 02/20/2019 1:19 PM OFFICE RECEPTIONIST Pulse 75 02/20/2019 1:19 PM OFFICE RECEPTIONIST Temperature 36.4 C (97.5 F) 02/20/2019 1:19 PM OFFICE RECEPTIONIST Respiratory Rate 16 02/20/2019 1:19 PM OFFICE RECEPTIONIST Oxygen Saturation 98% 02/20/2019 1:19 PM OFFICE RECEPTIONIST Inhaled Oxygen Concentration - - Weight 65.3 kg (144 lb) 02/20/2019 1:19 PM OFFICE RECEPTIONIST Height 175.3 cm (5' 9) 02/20/2019 1:19 PM OFFICE RECEPTIONIST Body Mass Index 21.27 02/20/2019 1:19 PM OFFICE RECEPTIONIST Plan of Treatment Health Maintenance Due Date [...] age to complete this topic Insurance MEDICAID [place] Care Teams Special Assets Officer Relationship Specialty [place] [address] [place] [address] PCP - General Family Medicine 05/26/17
[2024-09-05 11:01] LABS: Hematocrit 43.2 % (40.0-54.0); Hemoglobin 15.0 g/dL (14.0-18.0); Mean Corpuscular HGB Conc 34.7 g/dL (32-36); Mean Corpuscular Hemoglobin 32.8 pg (27.0-31.0); Mean Corpuscular Volume 94.3 fL (78.0-102.0); Platelet Count Result 320 K/mm3 (150-420); Red Blood Count 4.58 M/mm3 (4.70-6.10); White Blood Count 8.1 K/mm3 (4.8-10.8)
[2024-09-05 12:18] LABS: Alanine Aminotransferase 28 U/L (6-50); Albumin Level 4.7 g/dL (3.5-5.1); Alkaline Phosphatase 47 U/L (38-126); Anion Gap 4 mmol/L (4-12); Aspartate Amino Transferase 33 U/L (17-59); Bilirubin,Total 0.5 mg/dL (0.2-1.3); Blood Urea Nitrogen 13 mg/dL (9-20); Calcium 9.3 mg/dL (8.4-10.2); Carbon Dioxide 27 mmol/L (22-30); Chloride 107 mmol/L (98-107); Estimated Glomerular Filt Rate > 60; Glucose 116 mg/dL (65-110); Osmolality Calculated 287 mOsm/kg (285-295); Potassium 4.8 mmol/L (3.4-5.0); Sodium 138 mmol/L (137-145); Total Protein 7.0 g/dL (6.3-8.2)
== END 2024-09-05 10:51 | disposition home or self-care (01) ==
LOC: CHSLAB 10:53
PROVIDERS: Visit Provider Internal Medicine Hematology
DX: C34.11 Malignant neoplasm of upper lobe, right bronchus or lung (principal)
CPT/HCPCS: 36415; 80053; 85027

== ENCOUNTER 2024-09-06 10:08 | Outpatient (CLI) | payer OTHER, SELFPAY ==
--- OUTSIDE RECORDS SUMMARY | 2024-09-06 10:18 | XMS_ITS | Clinical Summary ---
Author Organization [facility] Address [address] [place] [address] Care Team Providers Care Snuff Box Finisher Name Role Phone Izabella Farah MD Unavailable Kathy Marquez CAT[employer]RESTING [employer]AR OFFICER-C Unavailable [phone] Himanshu Pearce DO Primary Care Provider [phone] Allergies Active Allergy Reactions Criticality Noted Date Comments Gabapentin Anxiety High 07/12/2024 Penicillins Unknown 07/26/2017 Rizatriptan Anaphylaxis High 07/26/2017 Medications albuterol sulfate HFA 108 (90 Base) MCG/ACT inhaler Inhale 2 puffs into the lungs. 8 Active ADVAIR DISKUS 250-50 MCG/ACT inhaler 2 (two) times daily. 2 Active atorvastatin (LIPITOR) 20 MG tablet Take 1 tablet (20 mg total) by mouth nightly at bedtime. Active HYDROcodone-acetami nophen (NORCO) 5-325 MG tabletIndications:A cute Pain < 3 Day Supply,Acute Pain < 7 Day Supply Take 1 tablet by mouth every 6 (six) hours as needed. Indications: Acute Pain < 3 Day Supply, Acute Pain < 7 Day Supply 15 tablet 3 Active amLODIPine (NORVASC) 5 MG tablet Take 1 tablet (5 mg total) by mouth daily. Active DULoxetine (CYMBALTA) 20 MG capsule Take 1 capsule (20 mg total) by mouth 2 (two) times daily. 5 Active INCRUSE ELLIPTA 62.5 MCG/ACT AEROSOL POWDER, BREATH ACTIVATED Inhale 1 puff into the lungs daily. 5 Active ondansetron (ZOFRAN-ODT) 4 MG disintegrating tablet Take 1 tablet (4 mg total) by mouth every 8 (eight) hours as needed for Nausea. 20 tablet 5 Active Active Problems No known active problems Encounters Date Type Department Care Team Description 08/12/2024 9:00 AM CDT - 08/12/2024 11:59 PM CDT Hospital Encounter [facility] [address] [place] [address] Charli Lua MD Discharge Disposition: Home or Self Care (Routine Discharge) 08/12/2024 Travel 07/25/2024 9:56 AM CDT - 07/25/2024 11:59 PM CDT Hospital Encounter [facility] PET [address] [place] [address] Christopher Holloway MD Discharge Disposition: Home or Self Care (Routine Discharge) 07/25/2024 Travel 07/15/2024 Transcribe Orders [facility] Pre Access Team [address] [place] [address] Charli Lua MD 07/12/2024 12:51 PM CDT - 07/12/2024 6:56 PM CDT Emergency [facility] [address] [place] [address] Orlando Quiñones, DO Shortness Of Breath Discharge Disposition: Home or Self Care (Routine Discharge) 07/12/2024 Travel from Last 3 Months Family History Medical [...] Start Date Job End Date works at [employer] Not on file Not on file Not on fi le Last Filed Vital Signs Vital Sign Reading Time Taken Comments Blood Pressure 138/92 07/12/2024 6:30 PM CDT Pulse 85 07/12/2024 6:30 PM CDT Temperature 36.7 C (98 F) 07/12/2024 12:59 PM CDT Respiratory Rate 11 07/12/2024 6:30 PM CDT Oxygen Saturation 98% 07/12/2024 6:30 PM CDT Inhaled Oxygen Concentration - - Weight 79 kg (174 lb 2 oz) 07/12/2024 12:59 PM C DT Height 170.2 cm (5' 7) 07/12/2024 12:59 PM CDT Body Mass Index 27.27 07/12/2024 12:59 PM CDT Plan of Treatment Health Maintenance [...] on patient's age to complete this topic Procedures Procedure Name Priority Date/Time Associated Diagnosis Comments PULMONARY FUNCTION TEST Routine 08/12/2024 9:04 AM CDT Chronic obstructive pulmonary disease, unspecified COPD type ([facility]) PET EYE TO THIGH [id number] Routine 07/25/2024 11:27 AM CDT Lung cancer ([facility]) POCT GLUCOSE - DOCKED DEVICE Routine 07/25/2024 10:14 AM CDT CTA CHEST PE PROTOCOL STAT 07/12/2024 2:22 PM CDT BLOOD GAS, VENOUS STAT 07/12/2024 1:3 9 PM CDT XR CHEST PA+LAT STAT 07/12/2024 1:31 PM CDT MAGNESIUM STAT 07/12/2024 1:19 PM CDT PRO-BRAIN NATRIURETIC PEPTIDE STAT 07/12/2024 1:19 PM CDT TROPONIN, QUANT STAT 07/12/2024 1:19 PM CDT D-DIMER, QUANTITATIVE STAT 07/12/2024 1:19 PM CDT COMPREHENSIVE METABOLIC PANEL STAT 07/12/2024 1:19 PM CDT CBC W/DIFF AUTOMATED STAT 07/12/2024 1:19 PM CDT INFLUENZA A & B STAT 07/12/2024 1:11 PM CDT CORONAVIRUS (COVID-19) ANTIGEN STAT 07/12/2024 1:11 PM CDT ECG 12-LEAD Routine 07/12/2024 12:55 PM CDT from Last 3 Months Results * Complete PFT (pre/post Gobler, Lung Vol, Diff Capacity) ([id number], 89614, 70515, [id number]) (08/12/2024 9:04 AM CDT) 08/12/2024 9:04 AM CDT Narrative ESCRIPTION - 08/13/2024 11:13 AM CDT Patient Name: RONNIE BEAN Date of : 1970 Account: [id number] Facility: [facility] Location: [facility] Date of Service: 08/12/2024 Pulmonary Function Test ORDERED BY: Kole Lua MD. INDICATION: COPD. The patient has spirometry before and after bronchodilators, lung volumes, diffusion lung capacity. Baseline spirometry shows mild airway obstruction. FEV1 2.43 L or 70% of predicted. FVC was 102% with reduced ratio FEV1/FVC of 0.54. Small response to bronchodilators, FEV1 improved by 5%. Normal lung volumes, TLC 95%, and RV 83%. Reduced diffusion lung capacity down to 55% suggestive of component of emphysema. IMPRESSION: Mild airway obstruction with baseline FEV1 of 70%, small response to bronchodilators with normal lung volumes and reduced diffusion lung capacity. Clinical correlation is required. Signature/Date: Kole LUA MD #[id number] /ARU Procedure Note Charli Lua MD - 08/13/2024 Patient Name: RONNIE BEAN Date of : 1970 Account: [id number] Facility: [facility] Location: [facility] Date of Service: 08/12/2024 Pulmonary Function Test ORDERED BY: Kole Lua MD. INDICATION: COPD. The patient has spirometry before and after bronchodilators, lung volumes, diffusion lung capacity. Baseline spirometry shows mild airway obstruction. FEV1 2.43 L or 70% of predicted. FVC was 102% with reduced ratio FEV1/FVC of 0.54. Small response to bronchodilators, FEV1 improved by 5%. Normal lung volumes, TLC 95%, and RV 83%. Reduced diffusion lung capacity down to 55% suggestive of component of emphysema. IMPRESSION: Mild airway obstruction with baseline FEV1 of 70%, small response to bronchodilators with normal lung volumes and reduced diffusion lung capacity. Clinical correlation is required. Signature/Date: Kole LUA MD #[id number] /ARU Charli Lua MD PFT ORDERABLES Final Result ESCRIPTION * PET EYE TO THIGH [id number] (07/25/2024 11:27 AM CDT) Anatomical Region Laterality Modality Body Positron Emissio n Tomography (PET), Positron Emission Tomography (PET) 07/25/2024 12:1 7 PM CDT Impressions 07/25/2024 2:07 PM CDT IMPRESSION: 1. Hypermetabolic 6 mm cavitary nodule in the right lower lobe is new from the recent prior CT scan 2 weeks ago. Given its acuity, an infectious or inflammatory process is strongly favored. Given the patient's history of squamous cell carcinoma, a developing metastasis is possible but felt less likely given the short interval development. Recommend short-term interval follow-up CT imaging in 6-8 weeks after appropriate interval antimicrobial therapy. 2. The described soft tissue fullness on the recent CTA chest along the superior aspect of the right hilum likely represents postsurgical and post radiation change and has low-level FDG activity which is favored to be inflammatory. Recommend continued attention to this area on diagnostic CT follow-up. 3. Increased FDG uptake throughout the esophagus which is greatest distally associated with a small hiatal hernia. Findings are favored to be inflammatory related to reflux esophagitis. Correlation with EGD may be helpful. The attending radiologist has reviewed the image(s) and agrees with the content of this report. Ordered By: CHRISTOPHER HOLLOWAY Interpreted By: Manpreet Mckenna MD, 07/25/2024 12:17 PM Narrative 07/25/2024 2:07 PM CDT [facility] [address] [place], [place] [address] EXAMINATION: TUMOR FDG-PET/CT IMAGING DATE OF STUDY: 07/25/2024 10:03 AM SCANNER: [facility] RADIOPHARMACEUTICAL: 11.3 mCi F-18 Fluorodeoxyglucose (FDG) i.v. 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 He is currently on Keytruda every 3 weeks. Recent CTA demonstrated abnormal soft tissue fullness at the superior aspect of the right hilum. The study is requested for detection of suspected recurrence. Subsequent treatment strategy. TECHNIQUE: The patient's fasting blood glucose level, measured by glucometer before injection of FDG, was 106 mg/dL. MD-Gastroview was not given orally. After intravenous administration of FDG, noncontrast CT images were obtained for attenuation correction and for fusion with emission PET images to allow for anatomical localization of PET findings. Emission PET images were then obtained. The study was interpreted on the [employer] workstation. The mean liver SUV (reported for quality control analyst purposes) is 2.2. The total scanned area was skull base to the proximal thighs. Images of the body were obtained starting 50 minutes after injection of tracer. COMPARISON: PET/CT 12/23/2022, CTA chest 07/12/2024 FINDINGS: There is a new 6 mm ] cavitary nodule in the right lower lobe. Although difficult to assess given its small size, this demonstrates a maximum SUV of 5.7 (the maximum SUV of background lung parenchyma measures 0.3). There is a thickened, solid components measuring 3 mm. These findings are overall new compared to the prior CT from July 12, 2024. Findings are favored to be infectious/inflammatory in etiology given its acuity. Though squamous cell carcinoma could have this appearance especially given the patient's history, this is felt less likely given the rapid interval development over the past 2 weeks. There is postsurgical change from a right upper lobectomy with postradiation change along the right hilum and posterior right thorax. There is mild relatively diffuse FDG uptake at this site a which is favored to be inflammatory related to posttreatment change. No superimposed focal intense FDG uptake. The max SUV at the right hilum is 2.6. For reference, the maximal SUV of mediastinal blood pool measures 2.2 while liver max SUV is approximately 3.1. There are no hypermetabolic axillary or mediastinal lymph nodes. No hypermetabolic lymph nodes in the head/neck, abdomen or pelvis. There is increased metabolic activity throughout the esophagus which is greatest distally with max SUV 7.5. Given the relatively diffuse pattern of uptake this is favored to be inflammatory related to reflux esophagitis. There is a small associated hiatal hernia. Additional CT findings: Mucosal thickening in the right maxillary sinus. Atherosclerotic calcification of the carotid arteries. There is a left-sided chest port with distal tip in the right atrium. Benign tracheal diverticuli are present. There are calcified hilar lymph nodes. There is scarring in the left lung apex. There is moderate pulmonary emphysema. Old granulomatous disease. Hepatic steatosis with fatty sparing along the gallbladder fossa. Mild calcifications of the abdominal aorta. Prostate calcification. Multilevel spondylosis. Procedure Note Vicenta Alegria MD - 07/25/[address] [address] EXAMINATION: TUMOR FDG-PET/CT IMAGING DATE OF STUDY: 07/25/2024 10:03 AM SCANNER: [facility] RADIOPHARMACEUTICAL: 11.3 mCi F-18 Fluorodeoxyglucose (FDG) i.v.Injection site: Left antecubital fossa HISTORY: 54-year-old man with squamous cell carcinoma status post rightupper lobe lobectomy, chemotherapy, and radiation therapy. He is currentlyon Keytruda every 3 weeks. Recent CTA demonstrated abnormal soft tissuefullness at the superior aspect of the right hilum. The study is requestedfor detection of suspected recurrence. Subsequent treatment strategy. TECHNIQUE: The patient's fasting blood glucose level, measured byglucometer before injection of FDG, was 106 mg/dL. JASMINEGastrooliver was notgiven orally. After intravenous administration of FDG, noncontrast CTimages were obtained for attenuation correction and for fusion withemission PET images to allow for anatomical localization of PET findings.Emission PET images were then obtained. The [facility]. The mean liver SUV (reported for quality controlpurposes) is 2.2. The total scanned area was skull base to the proximal thighs. Images ofthe body were obtained starting 50 minutes after injection of tracer. COMPARISON: PET/CT 12/23/2022, CTA chest 07/12/2024 FINDINGS: There is a new 6 mm ] cavitary nodule in the right lower lobe. Althoughdifficult to assess given its small size, this demonstrates a maximum SUVof 5.7 (the maximum SUV of background lung parenchyma measures 0.3). Thereis a thickened, solid components measuring 3 mm. These findings areoverall new compared to the prior CT from July 12, 2024. Findings arefavored to be infectious/inflammatory in etiology given its acuity. Thoughsquamous cell carcinoma could have this appearance especially given thepatient's history, this is felt less likely given the rapid intervaldevelopment over the past 2 weeks. There is postsurgical change from a right upper lobectomy withpostradiation change along the right hilum and posterior right thorax.There is mild relatively diffuse FDG uptake at this site a which isfavored to be inflammatory related to posttreatment change. Nosuperimposed focal intense FDG uptake. The max SUV at the right hilum is2.6. For reference, the maximal SUV of mediastinal blood pool measures 2.2while liver max SUV is approximately 3.1. There are no hypermetabolic axillary or mediastinal lymph nodes. Nohypermetabolic lymph nodes in the head/neck, abdomen or pelvis. There is increased metabolic activity throughout the esophagus which isgreatest distally with max SUV 7.5. Given the relatively diffuse patternof uptake this is favored to be inflammatory related to refluxesophagitis. There is a small associated hiatal hernia. Additional CT findings: Mucosal thickening in the right maxillary sinus.Atherosclerotic calcification of the carotid arteries. There is aleft- sided chest port with distal tip in the right atrium. Benign trachealdiverticuli are present. There are calcified hilar lymph nodes. There isscarring in the left lung apex. There is moderate pulmonary emphysema. Oldgranulomatous disease. Hepatic steatosis with fatty sparing along thegallbladder fossa. Mild calcifications of the abdominal aorta. Prostatecalcification. Multilevel spondylosis. IMPRESSION: 1. Hypermetabolic 6 mm cavitary nodule in the right lower lobe is new fromthe recent prior CT scan 2 weeks ago. Given its acuity, an infectious orinflammatory process is strongly favored. Given the patient's history ofsquamous cell carcinoma, a developing metastasis is possible but felt lesslikely given the short interval development. Recommend short-term intervalfollow-up CT imaging in 6-8 weeks after appropriate interval antimicrobialtherapy. 2. The described soft tissue fullness on the recent CTA chest along thesuperior aspect of the right hilum likely represents postsurgical and postradiation change and has low-level FDG activity which is favored to beinflammatory. Recommend continued attention to this area on diagnostic CTfollow-up. 3. Increased FDG uptake throughout the esophagus which is greatestdistally associated with a small hiatal hernia. Findings are favored to beinflammatory related to reflux esophagitis. Correlation with EGD may behelpful. The attending radiologist has reviewed the image(s) and agrees with thecontent of this report. Ordered By: CHRISTOPHER HOLLOWAY Interpreted By: Manpreet Mckenna MD, 07/25/2024 12:17 PM Christopher Holloway MD PET Final Result * POCT glucose (07/25/2024 10:14 AM CDT) GLUCOSE POC 106 70 - 109 07/25/2024 10:18 AM CDT [facility] 07/25/2024 10:1 4 AM CDT Christopher Holloway MD POCT ORDERABLES - DEV ICE Final Result [facility] [address] [place] [address], [place] [phone] [id number] * CTA CHEST PE PROTOCOL (07/12/2024 2:22 PM CDT) Anatomical Region Laterality Modality Chest Computed Tomogra phy 07/12/2024 3:14 PM CDT Impressions 07/12/2024 3:25 PM CDT IMPRESSION: 1. Nonspecific soft tissue fullness at the superior aspect of the right hilum. Referred By: Interpreted By: Sandro Eason MD, 07/12/2024 3:14 PM Narrative 07/12/2024 3:25 PM [address]T [address] [place] [address] EXAM: CT angiography of the chest DATE: 07/12/2024 COMPARISON: Routine protocol study 12/03/2022. INDICATION: Shortness of breath and lung cancer TECHNIQUE: Study performed after intravenous administration of 94 cc Isovue-370. A dose lowering technique was used for this procedure, which may include, but is not limited to, dose reduction technique, automated exposure control, the use of iterative reconstruction, and ALARA (As Low As Reasonably Achievable) / Image Gently techniques. Additional 3D and/or MIP images were created. FINDINGS: No CT findings for PE. There are small gas collections along the right side of the junction between the trachea and esophagus. Possible small diverticuli which were present previously. Emphysema findings are better seen on the prior study. The left lung is clear. Interval surgery has been performed on the right side. There is a lobular soft tissue density at the superior right hilum with multiple calcifications or surgical clips. This measures about 2.4 x 3.2 cm. No comparison with the prior study being the preoperative exam. Possible areas of scar, atelectasis, infection, or neoplasm. Detail is reduced with vascular imaging. Bronchoscopy or PET/CT may be required. Mild linear densities extend superiorly from this region into the right upper lobe. Possible atelectasis or scar. Normal appearance of the upper abdomen. Multilevel thoracic degenerative disc disease. Procedure Note Sandro Eason MD - 07/12/2024 [place] [id number] [place] [address] EXAM: CT angiography of the chest DATE: 07/12/2024 COMPARISON: Routine protocol study 12/03/2022. INDICATION: Shortness of breath and lung cancer TECHNIQUE: Study performed after intravenous administration of 94 ccIsovue-370. A dose lowering technique was used for this procedure, which may include,but is not limited to, dose reduction technique, automated exposurecontrol, the use of iterative reconstruction, and ALARA (As Low AsReasonably Achievable) / Image Gently techniques. Additional 3D and/or MIP images were created. FINDINGS: No CT findings for PE. There are small gas collections along the rightside of the junction between the trachea and esophagus. Possible smalldiverticuli which were present previously. Emphysema findings are betterseen on the prior study. The left lung is clear. Interval surgery has been performed on the right side. There is a lobularsoft tissue density at the superior right hilum with multiplecalcifications or surgical clips. This measures about 2.4 x 3.2 cm. Nocomparison with the prior study being the preoperative exam. Possibleareas of scar, atelectasis, infection, or neoplasm. Detail is reducedwith vascular imaging. Bronchoscopy or PET/CT may be required. Mildlinear densities extend superiorly from this region into the right upperlobe. Possible atelectasis or scar. Normal appearance of the upper abdomen. Multilevel thoracic degenerativedisc disease. IMPRESSION: 1. Nonspecific soft tissue fullness at the superior aspect of the righthilum. Referred By: Interpreted By: Sandro Eason MD, 07/12/2024 3:14 PM Orlando Quiñones DO CT Final Result * (ABNORMAL) Blood gas, venous (07/12/2024 1:39 PM CDT) PH VENOUS 7.52(H) 7.32 - 7.43 07/12/2024 1:43 PM CDT [facility] PCO2 VENOUS 31.0 MMHG 07/12/2024 1:43 PM CDT [facility] Comment:NO REFERENCE RANGE H BEEN ESTABLISHED PO2 VENOUS 56.0 MM HG 07/12/2024 1:43 PM CDT [facility] Comment:NO REFERENCE RANGE H BEEN ESTABLISHED TOTAL CO2 VENOUS 26.3(H) 22.0 - 26.0 MMOL/L 07/12/2024 1:43 PM CDT [facility] BASE EXCESS VENOUS 3.0 MMOL/L 07/12/2024 1:43 PM CDT [facility] Comment:NO REFERENCE RANGE H BEEN ESTABLISHED O2 SAT VENOUS 92 % 07/12/2024 1:43 PM CDT [facility] Comment:NO REFERENCE RANGE H BEEN ESTABLISHED BICARB VENOUS 25.3 22.0 - 29.0 MMOL/L 07/12/2024 1:43 PM CDT [facility] O2 ADMIN VENOUS ROOM AIR 1:39 PM CDT [facility] 07/12/2024 1:39 PM CDT us Orlando Quiñones DO LABORATORY Final Result [facility] [address] [place] [address], * XR CHEST PA+LAT (07/12/2024 1:31 PM CDT) Anatomical Region Laterality Modality Chest Radiographic Emely ging 07/12/2024 1:36 PM CDT Impressions 07/12/2024 1:37 PM CDT IMPRESSION: 1) No radiographic evidence of active disease the chest. Ordered By: ORLANDO QUIÑONES Interpreted By: Saroj Garcia MD, 07/12/2024 1:36 PM Narrative 07/12/2024 1:37 PM CDT [address] [place] [address] Examination: XR CHEST PA+LAT Exam time: 07/12/2024 1:22 PM Clinical history: Chest pain, dyspnea, history of right upper lobectomy for lung cancer. Comparison: 12/03/2022 Technique: PA and lateral Findings: Left subclavian port catheter in place with tip projecting over cavoatrial junction. Postoperative changes with volume loss right upper lobe. Heart size and pulmonary vasculature within normal limits. No acute pulmonary parenchymal opacity. No pleural effusion. Procedure Note Saroj Garcia MD - 07/12/[address] [place] [address] Examination: XR CHEST PA+LAT Exam time: 07/12/2024 1:22 PM Clinical history: Chest pain, dyspnea, history of right upper lobectomyfor lung cancer. Comparison: 12/03/2022 Technique: PA and lateral Findings: Left subclavian port catheter in place with tip projecting overcavoatrial junction. Postoperative changes with volume loss right upperlobe. Heart size and pulmonary vasculature within normal limits. No acutepulmonary parenchymal opacity. No pleural effusion. IMPRESSION: 1) No radiographic evidence of active disease the chest. Ordered By: ORLANDO QUIÑONES Interpreted By: Saroj Garcia MD, 07/12/2024 1:36 PM Orlando Quiñones DO GENERAL IMAGING Final Result * PRO-BRAIN NATRIURETIC PEPTIDE (07/12/2024 1:19 PM CDT) PRO-B TYPE NATRIURETIC PEPTIDE 53 <125 PG/ML 07/12/2024 1:54 PM CDT [facility] Comment: CUT POINTS ESTABLISHED BY [employer] ON NT PROBNP (ICON) STUDY (2006). AGE INDEPENDENT: <300 PG/ML HAS A 99% NEGATIVE PREDICTIVE VALUE FOR EXCLUDING ACUTE CHF <50 YEARS: >450 PG/ML IS CONSISTENT WITH ACUTE CHF 50-75 YEARS: >900 PG/ML IS CONSISTENT WITH ACUTE CHF >75 YEARS: >1800 PG/ML IS CONSISTENT WITH ACUTE CHF IN PATIENTS WITH RENAL INSUFFICIENCY (GFR <60), >1200 PG/ML YIELDS A DIAGNOSTIC SENSITIVITY AND SPECIFICITY OF 89% AND 72% FOR ACUTE CHF. 07/12/2024 1:19 PM CDT Orlando Quiñones DO LABORATORY Final Result [facility] Count includes the [facility] [place] [address], * (ABNORMAL) COMPREHENSIVE METABOLIC PANEL (07/12/2024 1:19 PM CDT) SODIUM S/P/B 140 136 - 145 MMOL/L 07/12/2024 1:54 PM CDT [facility] POTASSIUM S/P/B 4.2 3.5 - 5.1 MMOL/L 07/12/2024 1:54 PM CDT [facility] CHLORIDE S/P/B 104 98 - 107 MMOL/L 07/12/2024 1:54 PM CDT [facility] CO2 26.4 21.0 - 32.0 MMOL/L 07/12/2024 1:54 PM CDT [facility] GLUCOSE 116(H) 70 - 99 MG/DL 07/12/2024 1:54 PM [facility] Comment: FASTING GLUCOSE 100 TO 125 MG/DL IS CONSISTENT WITH IMPAIRED FASTING GLUCOSE. FASTING GLUCOSE >125 MG/DL IS CONSISTENT WITH DIABETES. RANDOM GLUCOSE >200 MG/DL WITH HYPERGLYCEMIC SYMPTOMS IS CONSISTENT WITH DIABETES. PER ADA GUIDELINES BUN 14 6 - 24 MG/DL 07/12/2024 1:54 PM T [facility] CREATININE S/P/B 0.98 0.70 - 1.30 MG/DL 07/12/2024 1:54 PM T [facility] CALCIUM S/P/B 9.7 8.4 - 10.5 MG/DL 07/12/2024 1:54 PM [facility] BILIRUBIN TOTAL S/P/B 0.2 0.2 - 1.0 MG/DL 07/12/2024 1:54 PM T [facility] Comment: THIS ASSAY IS NOT RECOMMENDED FOR PATIENTS UNDERGOING TREATMENT WITH ELTROMBOPAG DUE TO THE POTENTIAL FOR FALSELY ELEVATED RESULTS. ALKALINE PHOSPHATASE S/P/B 59 45 - 115 U/L 07/12/2024 1:54 PM [facility] AST 11(L) 15 - 37 U/L 07/12/2024 1:54 PM [facility] ALT 31 16 - 63 U/L 07/12/2024 1:54 PM [facility] TOTAL PROTEIN S/P/B 7.0 6.4 - 8.2 G/DL 07/12/2024 1:54 PM [facility] ALBUMIN S/P/B 3.7 3.4 - 5.0 G/DL 07/12/2024 1:54 PM [facility] ANION GAP 9.6 5.0 - 15.0 MMOL/L 07/12/2024 1:54 PM [facility] OSMOLALITY (CALC) 291 MOSM/KG 025 1:54 PM [facility] Comment:REFERENCE RANGE NOT ESTABLISHED GFR ESTIMATE >90 >89 ML/MIN/1. 73 M2 07/12/2024 1:54 PM CDT [facility] GFR NOTES GFR REFERENCE S: 07/12/2024 1:54 PM CDT [facility] Comment: THE ESTIMATED GFR IS CALCULATED USING THE 2020 CKD-EPI EQUATION. THE FOLLOWING CATEGORIES FOR GRADING RENAL FUNCTION ARE RECOMMENDED BY THE INTERNATIONAL SOCIETY OF NEPHROLOGY (KDIGO 2012 CLINICAL PRACTICE GUIDELINE). G1,NORMAL OR HIGH: >89 ml/min/1.73 m2 G2,MILDLY DECREASED: 60-89 ml/min/1.73 m2 G3A,MILDLY TO MODERATELY DECREASED: 45-59 ml/min/1.73 m2 G3B,MODERATELY TO SEVERELY DECREASED: 30-44 ml/min/1.73 m2 G4,SEVERELY DECREASED: 15-29 ml/min/1.73 m2 G5,KIDNEY FAILURE: <15 ml/min/1.73 m2 07/12/2024 1:19 PM CDT us Orlando Quiñones DO LABORATORY Final Result Performing Organization Address [facility] de Phone Number [facility] [address] [place], [place] [address] [address], * D-DIMER, QUANTITATIVE (07/12/2024 1:19 PM CDT) D-DIMER 260 0 - 500 ng{FEU}/mL 07/12/2024 1:52 PM CDT [facility] Comment: D-Dimer values less than or equal to 500 ng/mL FEU have a negative predictive value of >95% for exclusion of deep vein thrombosis and pulmonary embolism. In patients over 50 (who tend to have higher normal baseline D-Dimer values), recent studies suggest age-adjusted D-Dimer cutoff values (calculated as: age [years] x 10 ng/mL) result in equivalent outcomes and no additional false negative findings. 07/12/2024 1:19 PM CDT us Orlando Quiñones DO LABORATORY Final Result Performing Organization Address [facility] Co de Phone Number [facility] [address] [place] [address], * (ABNORMAL) CBC W/DIFF AUTOMATED (07/12/2024 1:19 PM CDT) [facility] Signature WBC 12.49(H) 4.00 - 10.80 x10'3/uL 07/12/2024 1:30 PM CDT [facility] RBC 4.33(L) 4.50 - 6.10 x10'6/uL 07/12/2024 1:30 PM CDT [facility] HGB 14.2 13.0 - 18.0 G/DL 07/12/2024 1:30 PM CDT [facility] HCT 40.4 37.0 - 52.0 % 07/12/2024 1:30 PM CDT [facility] MCV 93.3 78.0 - 100.0 FL 07/12/2024 1:30 PM CDT [facility] MCH 32.8(H) 27.0 - 31.0 PG 07/12/2024 1:30 PM CDT [facility] MCHC 35.1 33.0 - 36.0 G/DL 07/12/2024 1:30 PM CDT [facility] RDW 13.3 11.5 - 14.5 % 07/12/2024 1:30 PM CDT [facility] PLT 423(H) 150 - 350 x10'3/uL 07/12/2024 1:30 PM CDT [facility] MPV 9.4 7.4 - 10.4 FL 07/12/2024 1:30 PM CDT [facility] CBC COMMENT NORMAL REFERENCE RANGE NOT ESTABLISHED FOR THE PROPORTIONAL LEUKOCYTE DIFFERENTIAL. 07/12/2024 1:30 PM CDT [facility] NEUTROPHILS % 84.9 % 07/12/2024 1:30 PM CDT [facility] LYMPHOCYTES % 9.3 % 07/12/2024 1:30 PM CDT [facility] MONOCYTES % 4.7 % 07/12/2024 1:30 PM CDT [facility] EOSINOPHILS % 0.5 % 07/12/2024 1:30 PM CDT [facility] BASOPHILS % 0.2 % 07/12/2024 1:30 PM CDT [facility] IMMATURE GRANS % 0.4 % 07/13/19 25 1:30 PM CDT [facility] NRBC % 0.0 % 07/12/2024 1:30 PM CDT [facility] ABS. NEUTROPHILS 10.60(H) 1.60 - 8.30 x10'3/uL 07/12/2024 1:30 PM CDT [facility] ABS. LYMPHOCYTES 1.16 0.80 - 4.70 x10'3/uL 07/12/2024 1:30 PM CDT [facility] ABS. MONOCYTES 0.59 0.00 - 1.50 x10'3/uL 07/12/2024 1:30 PM CDT [facility] ABS. EOSINOPHILS 0.06 0.00 - 0.40 x10'3/uL 07/12/2024 1:30 PM CDT [facility] ABS. BASOPHILS 0.03 0.00 - 0.20 x10'3/uL 07/12/2024 1:30 PM CDT [facility] ABS. IMMATURE GRANULOCYTES 0.05(H) 0.00 - 0.03 x10'3/uL 07/12/2024 1:30 PM CDT [facility] ABS. NUCLEATED RBC'S 0.00 0.00 - 0.01 x10'3/uL 07/12/2024 1:30 PM CDT [facility] 07/12/2024 1:19 PM CDT us Orlando Quiñones DO LABORATORY Final Result [facility] [address] [place] [address], * TROPONIN, QUANT (07/12/2024 1:19 PM CDT) TROPONIN I HIGH SENSITIVITY 9 0 - 76 ng/L 07/12/2024 1:54 PM CDT [facility] 07/12/2024 1:19 PM CDT us Orlando Quiñones DO LABORATORY Final Result Performing Organization Address [facility] Co de Phone Number [facility] Count includes the [facility] [place] [address], * (ABNORMAL) MAGNESIUM (07/12/2024 1:19 PM CDT) MAGNESIUM 1.7(L) 1.8 - 2.4 MG/DL 07/12/2024 1:54 PM CDT [facility] 07/12/2024 1:19 PM CDT us rOlando Quiñones DO LABORATORY Final Result Performing Organization Address [facility] de Phone Number [facility] Count includes the [facility] [place] [address], [place] [phone] * CORONAVIRUS (COVID-19) ANTIGEN (07/12/2024 1:11 PM CDT) CORONAVIRUS ANTIGEN IA NEGATIVE NEGATIVE 07/12/2024 1:37 PM CDT [facility] Comment: NEGATIVE RESULTS DO NOT RULE OUT SARS-COV-2 INFECTION AND SHOULD NOT BE USED THE SOLE BASIS FOR TREATMENT OR PATIENT MANAGEMENT DECISIONS, INCLUDING INFECTION CONTROL DECISIONS. NEGATIVE RESULTS SHOULD BE CONSIDERED IN THE CONTEXT OF A PATIENT'S RECENT EXPOSURES, HISTORY AND THE PRESENCE OF CLINICAL SIGNS AND SYMPTOMS CONSISTENT WITH COVID 19. THIS TEST HAS BEEN AUTHORIZED BY THE FDA UNDER AN EMERGENCY USE AUTHORIZATION (EUA) FOR USE BY AUTHORIZED LABORATORIES. SPECIMEN TYPE NASAL 07/12/2024 1:12 PM CDT [facility] NASAL NASAL STRUCTURE / Unknown 07/12/2024 1:11 PM CDT us Orlando Quiñones DO MICROBIOLOGY - GENERAL ORDERABLE S Final Result Performing Organization Address [facility]/ZIP Co de Phone Number [facility] [address] [place] [address], * INFLUENZA A & B (07/12/2024 1:11 PM CDT) SPECIMEN TYPE (INFLUENZA) NASAL 07/12/2024 1:12 PM CDT [facility] INFLUENZA A NEGATIVE NEGATIVE 07/12/2024 1:37 PM CDT [facility] INFLUENZA B NEGATIVE NEGATIVE 07/12/2024 1:37 PM CDT [facility] Comment: A NEGATIVE RESULT DOES NOT EXCLUDE INFLUENZA VIRUS INFECTION. IF INFLUENZA IS CIRCULATING IN YOUR COMMUNITY, A DIAGNOSIS OF INFLUENZA SHOULD BE CONSIDERED BASED ON A PATIENT'S CLINICAL PRESENTATION AND EMPIRIC ANTIVIRAL TREATMENT SHOULD BE CONSIDERED IF INDICATED. NASAL STRUCTURE / Unknown 07/12/2024 1:11 PM CDT Orlando Quiñones DO MICROBIOLOGY - GENERAL ORDERABLE S Final Result Performing Organization Address [facility] Co de Phone Number [address] [address], * ECG 12 lead (07/12/2024 12:55 PM CDT) 07/12/2024 12:5 5 PM CDT Narrative [facility] - 07/13/2024 6:12 AM CDT [address] [place] [address] Test Date: 2024-07-12 Pat Name: RONNIE BEAN Department: 3 Room: [facility] 60 Gender: Male Chicken Picker: : 1970 Requested By: ORLANDO QUIÑONES Order Number: [id number] Reading MD: Sanket Stiles Measurements Intervals Allen Rate: 93 P: 81 OR: 148 QRS: 52 QRSD: 91 T: 75 QT: 321 QTc: 401 Interpretive Statements SINUS RHYTHM POSSIBLE RIGHT VENTRICULAR CONDUCTION DELAY Procedure Note Sanket Stiles MD - 07/13/[address] [place] [address] Test Date: 2024-07-12 Pat Name: RONNIE BEAN Department: 3 Room: EXAM 606 Gender: Male Chicken Picker: : 1970 Requested By: ORLANDO QUIÑONES Order Number: [id number] Reading MD: Sanket Stiles Measurements Intervals Allen Rate: 93 P: 81 OR: 148 QRS: 52 QRSD: 91 T: 75 QT: 321 QTc: 401 Interpretive Statements SINUS RHYTHM POSSIBLE RIGHT VENTRICULAR CONDUCTION DELAY us Orlando Quiñones DO ECG ORDERABLES Final Result Performing Organization Address City/State/[facility] Co de Phone Number [facility] RAD from Last 3 Months Insurance RAMIREZ RAMIREZ Care Teams Snuff Box Finisher Relationship Specialty [place] [address] [place] [address] PCP - General FAMILY PRACTICE 07/25/24 Izabella Farah MD [address] [place] [address] Consulting Physician CARDIOVASCULAR DISEASE 10/28/22 Kathy Marquez, CATAPULT AND ARRESTING GEAR OFFICER-C [address] [place] [address] Nurse Practitioner Family 11/02/22
--- OUTSIDE RECORDS SUMMARY | 2024-09-06 10:18 | XMS_ITS | Encounter Summary ---
Author Organization [facility] Address [address] [place] [address] Care Team Providers Care Back Order Clerk Name Role Phone Jim Álvarez MD Primary Care Provider [phone] Izabella Farah MD Unavailable Kathy Marquez BIT BENDER-C Unavailable [phone] Himanshu Pearce DO Primary Care Provider [phone] Encounter Details Date Type Department Care Team (Late st Contact Info) Description 11/02/2022 [facility] [address] [place] [id number] Abstract, Doc Pccl Social History Tobacco Use [...] Start Date Job End Date works at [employer] Not on file Not on file Not on fi le documented as of this encounter Functional Status * Calculated C-SSRS Risk Score (Lifetime/Recent) Answer Date of Assessment Author Status No Risk Indicated 11/02/2022 5:57 PM CDT Eddie Hassan, RN Active * Corinne Suicide Severity Rating Scale (Screener/Recent Self-Report) Question Answer Date of Assessment Author Status 1. Wish to be (Past 1 Month) No 11/02/2022 5:57 PM CDT Nica Hassan RN Act bill 2. Non-Specific Active Suicidal Thoughts (Past 1 Month) No 11/02/2022 5:57 PM CDT Nica Hassan RN Act bill 6. Suicidal Behavior (Lifetime) No 11/02/2022 5:57 PM CDT Nica Hassan RN Act bill documented as of this encounter Plan of Treatment Not on file documented as of this encounter Visit Diagnoses Not on filedocumented in this encounter Additional Health Concerns Infection Onset Date Last Indicated Resolved Time COVID-19 Rule Out 07/12/2024 07/12/2024 07/12/2024 1:37 PM CDT Respiratory Rule Out 07/12/2024 07/12/2024 025 1:38 PM CDT documented as of this encounter Care Teams Back Order Clerk Relationship Specialty Start Date End Date Jim Álvarez MD [address] [place] [address] PCP - General FAMILY PRACTICE 05/02/21 07/24/24 [place] [address] [place] [phone] PCP - General FAMILY PRACTICE 07/25/24 Izabella Farah MD [address] [place] [address] Consulting Physician CARDIOVASCULAR DISEASE 10/28/22 Kathy Marquez, BIT BENDER-C [address] [place], [place] [id number] Nurse Practitioner Family 11/02/22 documented as of this encounter
--- OUTSIDE RECORDS SUMMARY | 2024-09-06 10:18 | XMS_ITS | Clinical Summary ---
Author Organization [facility] Address [address] [facility], [place] [address] Phone Care Team Providers Care Method Consultant Name Role Phone Britton Bean MD Primary Care Provider [phone] Allergies Active Allergy Reactions Criticality Noted Date [...] Comments Blood Pressure 142/86 02/20/2019 1:19 PM REPAIRER WELDING EQUIPMENT Pulse 75 02/20/2019 1:19 PM REPAIRER WELDING EQUIPMENT Temperature 36.4 C (97.5 F) 02/20/2019 1:19 PM REPAIRER WELDING EQUIPMENT Respiratory Rate 16 02/20/2019 1:19 PM REPAIRER WELDING EQUIPMENT Oxygen Saturation 98% 02/20/2019 1:19 PM REPAIRER WELDING EQUIPMENT Inhaled Oxygen Concentration - - Weight 65.3 kg (144 lb) 02/20/2019 1:19 PM REPAIRER WELDING EQUIPMENT Height 175.3 cm (5' 9) 02/20/2019 1:19 PM REPAIRER WELDING EQUIPMENT Body Mass Index 21.27 02/20/2019 1:19 PM REPAIRER WELDING EQUIPMENT Plan of Treatment Health Maintenance Due Date [...] age to complete this topic Insurance [place]ID [place] Care Teams Method Consultant Relationship Specialty [place] [address] [place] [address] PCP - General Family Medicine 05/26/17
[2024-09-06 10:30] VITALS: BP 128/70; PULSE 78; RESP 14; TEMP 36.6; O2SAT 97; BMI 27.1
[2024-09-06] MEDS: PEMBROLIZUMAB 200 MG in SODIUM CHLORIDE 0.9% IV 92 ML IVPB (10:44)
[2024-09-06] MEDS: HEPARIN SODIUM LOCK FLUSH 500 UNITS/5 ML SYRINGE (11:19)
[2024-09-06 11:20] VITALS: BP 120/73; PULSE 74; RESP 14; O2SAT 96
--- NOTE | 2024-09-06 11:21 | PC.NURSE ---
Tolerated Pembrolizumab injection well. SEE MAR/patient care notes.
== END 2024-09-06 10:09 | disposition home or self-care (01) ==
PROVIDERS: Visit Provider Internal Medicine Hematology
DX: Z51.11 Encounter for antineoplastic chemotherapy (principal); C34.11 Malignant neoplasm of upper lobe, right bronchus or lung
CPT/HCPCS: 96413; J9271

== ENCOUNTER 2024-09-20 08:42 | Outpatient (CLI) | payer OTHER, SELFPAY ==
--- NOTE | ~2024-09-20 | CT_ITS ---
Clinical Indication: Lung cancer CT Scan of the Chest with Contrast: Technique: Contiguous sections were acquired throughout the chest after intravenous administration of 75 cc of Omnipaque 350. Dose reduction technique was used on this scan by utilizing automated exposu re control and iterative reconstruction technique. The dose-length product (DLP) was 180.68 mGy-cm. COMPARISON: 06/24/2024 Findings: There is no evidence of any significant mediastinal, hilar or axillary lymphadenopathy. There is no f illing defect in the pulmonary arterial tree to suggest pulmonary embolus. There is no evidence of ao rtic dissection or aneurysm. There is no evidence of pleural or pericardial effusion. Status post right upper lobectomy. Stable probable post treatment/postoperative changes in the right suprahilar region/right paratracheal stripe region. Stable left apical scarring. Moderate emphysema p resent. Images through the upper abdomen reveal no abnormalities. Impression: Stable postoperative changes/treated disease in the right upper lobe/right perihilar region. No defin ite evidence for active malignancy or metastatic disease. Moderate emphysema. Reviewed, dictated and finalized at location M. Impression: Stable postoperative changes/treated disease in the right upper lobe/right chiqui hilar region. No definite evidence for active malignancy or metastatic disease. Moderate emphysema.
--- OUTSIDE RECORDS SUMMARY | 2024-09-20 08:44 | XMS_ITS | Clinical Summary ---
Author Organization [facility] Address [address] [facility] [place] [address] Phone Care Team Providers Care Meat Stringer Name Role Phone Britton Bean MD Primary Care Provider [phone] Allergies Active Allergy Reactions Criticality Noted Date [...] Comments Blood Pressure 142/86 02/20/2019 1:19 PM SHOVEL OPERATOR Pulse 75 02/20/2019 1:19 PM SHOVEL OPERATOR Temperature 36.4 C (97.5 F) 02/20/2019 1:19 PM SHOVEL OPERATOR Respiratory Rate 16 02/20/2019 1:19 PM SHOVEL OPERATOR Oxygen Saturation 98% 02/20/2019 1:19 PM SHOVEL OPERATOR Inhaled Oxygen Concentration - - Weight 65.3 kg (144 lb) 02/20/2019 1:19 PM SHOVEL OPERATOR Height 175.3 cm (5' 9) 02/20/2019 1:19 PM SHOVEL OPERATOR Body Mass Index 21.27 02/20/2019 1:19 PM SHOVEL OPERATOR Plan of Treatment Health Maintenance Due [...] age to complete this topic Insurance [place]ICAID [place] Care Teams Meat Stringer Relationship Specialty [place] [address] [place] [address] PCP - General Family Medicine 05/26/17
== END 2024-09-20 08:43 | disposition home or self-care (01) ==
LOC: CHSIMG 08:43
PROVIDERS: Visit Provider Internal Medicine Hematology
DX: C34.90 Malignant neoplasm of unspecified part of unspecified bronchus or lung (principal)
CPT/HCPCS: 71260; Q9967

== ENCOUNTER 2025-01-10 09:07 | Outpatient (CLI) | payer OTHER, SELFPAY ==
--- NOTE | ~2025-01-10 | CT_ITS ---
EXAMINATION: CT chest abdomen pelvis w con DATE: 01/10/2025 09:43 INDICATION: Lung cancer. TECHNIQUE: Computed tomography (CT) of the chest, abdomen, and pelvis was performed with 100 mL Omnipaque 350 intravenous contrast. Automated exposure control and iterative reconstruction technique were employed. The dose-length product was 458.06 mGy-cm. COMPARISON: Chest CT 09/20/2024, CT abdomen and pelvis 07/04/2024 FINDINGS: CHEST CT: There is moderate emphysema. Calcified left lung nodules and calcified left hilar lymph nodes are consistent with old granulomatous disease. There are changes of right upper lobectomy. There is mild atelectasis and scarring in the lungs bilaterally. No pleural effusion. The heart size is normal. No pericardial effusion. There are tracheal diverticulum on the right. There is mild bilateral gynecomastia. There is moderate thoracic spondylosis. There is mild chronic anterior wedging of multiple vertebral bodies. ABDOMEN/PELVIS CT: There is a small sliding hiatal hernia. The liver and gallbladder are normal. Calcifications in the spleen are consistent with old granulomatous disease. The pancreas, adrenal glands, and kidneys are normal. There are no dilated loops of bowel. The appendix is normal. There are no pathologically enlarged lymph nodes. There is no free intraperitoneal fluid. There is mild lumbar spondylosis. IMPRESSION: 1. No evidence of metastatic disease. 2. Moderate emphysema. 3. Right upper lobectomy. Reviewed, dictated and finalized at location E. MOLOGY TECHNICAL OFFICER
== END 2025-01-10 09:08 | disposition home or self-care (01) ==
PROVIDERS: Visit Provider Internal Medicine Hematology
DX: C34.90 Malignant neoplasm of unspecified part of unspecified bronchus or lung (principal); J43.9 Emphysema, unspecified; Z90.2 Acquired absence of lung [part of]
CPT/HCPCS: 71260; 74177; Q9967